=== PATIENT | male | born 1970 | race Caucasian/White ===

== ENCOUNTER → 2016-10-19 | Outpatient (CLI) | payer SELFPAY ==
[2016-10-19 14:42] LABS: Anisocytosis Slight; CH 27.6; CHCM 32.5; HCT 36.8 % (39.0-53.0); HDW 2.62; HGB 11.9 gm/dL (13.0-17.5); MCH 27.6 pg (25.0-35.0); MCHC 32.5 g/dL (31.0-37.0); MCV 85.1 fL (80.0-100.0); Mean Platelet Volume 8.6; RBC 4.32 m/uL (4.30-5.90); RDW 16.6 % (11.5-15.5); Reticulocyte % 2.1 % (0.5-2.0); WBC 8.6 k/uL (3.8-10.6)
== END | disposition home or self-care (01) ==
LOC: LABWHC1 14:27
PROVIDERS: ATTEND Internal Medicine
DX: R53.83 Other fatigue (principal); R52 Pain, unspecified
CPT/HCPCS: 36415; 84439; 85027; 85045

== ENCOUNTER → 2016-12-22 | Outpatient (CLI) | payer BC ==
[2016-12-22 15:06] LABS: Anisocytosis Slight; CH 30.8; CHCM 32.8; HCT 39.3 % (39.0-53.0); HDW 2.27; HGB 12.7 gm/dL (13.0-17.5); MCH 30.5 pg (25.0-35.0); MCHC 32.3 g/dL (31.0-37.0); Mean Platelet Volume 7.8; RBC 4.17 m/uL (4.30-5.90); RDW 17.1 % (11.5-15.5); WBC 8.2 k/uL (3.8-10.6)
[2016-12-22 15:07] LABS: MCV 94.3 fL (80.0-100.0)
[2016-12-23 04:38] LABS: HSV I IgG Interp POSITIVE (NEGATIVE)
[2016-12-23 13:08] LABS: IgG Subclass 3 39.2 mg/dL (11.0-85.0)
== END | disposition home or self-care (01) ==
LOC: LABWHC1 14:25
PROVIDERS: ATTEND Internal Medicine
DX: D84.9 Immunodeficiency, unspecified (principal); R53.83 Other fatigue; B25.8 Other cytomegaloviral diseases; B99.9 Unspecified infectious disease; B00.9 Herpesviral infection, unspecified
CPT/HCPCS: 36415; 82728; 82784; 82787; 85027; 86644; 86695; 86790

== ENCOUNTER 2017-04-19 17:43 | Emergency (ER) | payer BC ==
[2017-04-19] MEDS ORDERED: SODIUM CHLORIDE 0.9% 1,000 ML IV STA (19:21)
--- NOTE | 2017-04-19 19:30 | ED ---
General Adult HPI - General Chief complaint: Abdominal Pain Stated complaint: sent by [facility] for liver inflamation Time Seen by Provider: 04/19/17 19:02 Source: patient, RN notes reviewed, old records reviewed Mode of arrival: ambulatory Limitations: no limitations - History of Present Illness Initial comments: Chief complaint and history of present illness a 38-year-old male who is no alcoholic. Recently the patient is having discomfort right upper quadrant. States he was with a woman who was hepatitis C positive from IV drug abuse. This was several months ago. Patient was sent here from the urgent care clinic for further evaluation. The patient reports that he drank alcohol until yesterday. The patient is now admitted alcoholic. - Related Data Home Medications Medication Instructions Recorded Confirmed Gabapentin [Neurontin] 800 mg PO QID 10/22/14 04/19/17 Baclofen [Lioresal] 20 mg PO TID 04/19/17 04/19/17 Celecoxib [CeleBREX] 100 mg PO DAILY 04/19/17 04/19/17 Famciclovir [Famvir] 750 mg PO TID 04/19/17 04/19/17 Hydrocortisone 5 - 10 mg PO DAILY 04/19/17 04/19/17 Midodrine HCl [ProAmatine] 5 - 10 mg PO BID 04/19/17 04/19/17 Zolpidem Tartrate [Ambien] 10 mg PO HS 04/19/17 04/19/17 oxyCODONE-APAP 5-325MG [Percocet 1 tab PO TID PRN 04/19/17 04/19/17 5-325 mg] tiZANidine HCL [Zanaflex] 2 - 4 mg PO HS 04/19/17 04/19/17 traMADol HCL [Ultram] 50 - 100 mg PO QID PRN 04/19/17 04/19/17 Previous Rx's Medication Instructions Recorded chlordiazePOXIDE HCl [Librium] 25 mg PO QID #20 capsule 04/19/17 Allergies Allergy/AdvReac Type Severity Reaction Status Date / Time Penicillins Allergy Rash/Hives Verified 04/19/17 18:07 Review of Systems ROS Statement: Those systems with pertinent positive or pertinent negative responses have been documented in the HPI. Review of systems no headache or visual acuity changes no chest pain or shortness of breath. His abdominal discomfort nausea but no vomiting no diarrhea at this time. Complains or right upper quadrant pain. All systems reviewed. Past medical problems alcoholism. The patient was incarcerated and and that having a gastrectomy because of overuse of ibuprofen. Family history no cancers. Patient has ALLERGIES to penicillin. Continues to smoke strongly encouraged to stop alcohol patient's an alcoholic. He denies ever being throughway alcohol rehab program. Also history of MRSA. Surgeries include cholecystectomy and tonsillectomy. Psychological history history of bipolar disorder. Denies drugs elevated marijuana. Patient has his medications including Neurontin baclofen and tramadol prescribed by in [place]. He notified him as a specialist and chronic fatigue syndrome multiple lab tests done by the physician. 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 He states that he has never seen this physician. ROS Other: All systems not noted in ROS Statement are negative. Past Medical History Past Medical History: No Reported History Additional Past Medical History / Comment(s): alcoholism History of Any Multi-Drug Resistant Organisms: MRSA Date of last positivie culture/infection: 2007 MDRO Source:: abdomen Past Surgical History: Cholecystectomy, Tonsillectomy Additional Past Surgical History / Comment(s): abdominal sx Past Psychological History: Anxiety, Bipolar, Depression Smoking Status: Current every day smoker Past Alcohol Use History: Abuse Past Drug Use History: Marijuana General Exam - General Exam Comments Initial Comments: General: The patient is awake and alert, complains not feeling well his pressure discomfort to the right upper quadrant. Vital signs temperature 97.7, pulse 82 respiratory rate 18 pulse ox 90% room air blood pressure 151/98 Eye: Pupils are equal, round and reactive to light, extra-ocular movements are intact ; there is normal conjunctiva bilaterally. No signs of icterus. Ears, nose, mouth and throat: There are moist mucous membranes and no oral lesions. Neck: The neck is supple, there is no tenderness . Cardiovascular: There is a regular rate and rhythm. No murmur, rub or gallop is appreciated. Respiratory: Lungs are clear to auscultation, respirations are non-labored, breath sounds are equal. No wheezes, stridor, rales, or rhonchi. Gastrointestinal: Complains of abdominal discomfort no liver edge is palpable this time. Negative Barnard's. Patient has artery had a cholecystectomy. Patient is not alcoholic. Back: There is no tenderness to palpation in the midline. There is no obvious deformity. No rashes noted. Musculoskeletal: Normal ROM, no tenderness, There is no pedal edema. There is no calf tenderness or swelling. Sensation intact. . Neurological: No neuro deficits complained of are noted. Skin: Skin is warm and dry and no rashes or lesions are noted. Psychiatric: History of bipolar disorder. Denies depression or suicidal thoughts at this time. Limitations: no limitations Course Vital Signs 04/19/17 04/19/17 04/19/17 18:04 20:37 21:34 Temperature 97.7 F Pulse Rate 82 84 83 Respiratory 18 16 18 Rate Blood Pressure 151/98 154/89 155/79 O2 Sat by Pulse 98 97 99 Oximetry Medical Decision Making - Medical Decision Making Medical decision making; patient's white count is 9 hemoglobin 12 medical 34, BUN 9 creatinine 0.7 to the GFR greater than 60. Glucose 91. Plasma lactic acid within normal limits 1.4. Amylase lipase within normal limits EtOH is 0.013. The patient's potassium is 4.0 INR 1.0. Acute hepatitis panel is reported to be negative for hepatitis A, hepatitis B or hepatitis C. Patient will be offered Librium 25 mg 4 times a day for the next 5 days in order to assist in his stopping his alcohol use. Advised to consider alcohol rehab programs, a list will be given to him. Advised to have rechecks as needed by his family physician. - Lab Data Result diagrams: 04/19/17 19:42 04/19/17 19:42 Lab Results 04/19/17 04/19/17 04/19/17 Range/Units 19:42 19:42 19:42 WBC 9.1 (3.8-10.6) k/uL RBC 3.71 L (4.30-5.90) m/uL Hgb 12.1 L (13.0-17.5) gm/dL Hct 34.3 L (39.0-53.0) % MCV 92.4 (80.0-100.0) fL MCH 32.6 (25.0-35.0) pg MCHC 35.2 (31.0-37.0) g/dL RDW 13.8 (11.5-15.5) % Plt Count 302 (150-450) k/uL Neutrophils % 62 % Lymphocytes % 27 % Monocytes % 6 % Eosinophils % 4 % Basophils % 1 % Neutrophils # 5.6 (1.3-7.7) k/uL Lymphocytes # 2.5 (1.0-4.8) k/uL Monocytes # 0.5 (0-1.0) k/uL Eosinophils # 0.3 (0-0.7) k/uL Basophils # 0.1 (0-0.2) k/uL PT (9.0-12.0) sec INR (<1.1) APTT (22.0-30.0) sec Sodium 139 (137-145) mmol/L Potassium 4.0 (3.5-5.1) mmol/L Chloride 105 (98-107) mmol/L Carbon Dioxide 21 L (22-30) mmol/L Anion Gap 13 mmol/L BUN 9 (9-20) mg/dL Creatinine 0.72 (0.66-1.25) mg/dL Est GFR (MDRD) Af Amer >60 (>60 ml/min/1.73 sqM) Est GFR (MDRD) Non-Af >60 (>60 ml/min/1.73 sqM) Glucose 91 (74-99) mg/dL Plasma Lactic Acid Eric 1.4 (0.7-2.0) mmol/L Calcium 9.2 (8.4-10.2) mg/dL Total Bilirubin 0.3 (0.2-1.3) mg/dL AST 21 (17-59) U/L ALT 21 (21-72) U/L Alkaline Phosphatase 72 (38-126) U/L Total Protein 6.6 (6.3-8.2) g/dL Albumin 4.0 (3.5-5.0) g/dL Amylase <30 L (30-110) U/L Lipase 83 (23-300) U/L Urine Color Urine Appearance (Clear) Urine pH (5.0-8.0) Ur Specific [place] (1.001-1.035) Urine Protein (Negative) Urine Glucose (UA) (Negative) Urine Ketones (Negative) Urine Blood (Negative) Urine Nitrite (Negative) Urine Bilirubin (Negative) Urine Urobilinogen (<2.0) mg/dL Ur Leukocyte Esterase (Negative) Serum Alcohol 13 mg/dL Hepatitis A IgM Ab Hep Bs Antigen Hep B Core IgM Ab Hep C IgG Ab (Negative) 04/19/17 04/19/17 04/19/17 Range/Units 19:42 19:42 20:12 WBC (3.8-10.6) k/uL RBC (4.30-5.90) m/uL Hgb (13.0-17.5) gm/dL Hct (39.0-53.0) % MCV (80.0-100.0) fL MCH (25.0-35.0) pg MCHC (31.0-37.0) g/dL RDW (11.5-15.5) % Plt Count (150-450) k/uL Neutrophils % % Lymphocytes % % Monocytes % % Eosinophils % % Basophils % % Neutrophils # (1.3-7.7) k/uL Lymphocytes # (1.0-4.8) k/uL Monocytes # (0-1.0) k/uL Eosinophils # (0-0.7) k/uL Basophils # (0-0.2) k/uL PT 10.4 (9.0-12.0) sec INR 1.0 (<1.1) APTT 24.7 (22.0-30.0) sec Sodium (137-145) mmol/L Potassium (3.5-5.1) mmol/L Chloride (98-107) mmol/L Carbon Dioxide (22-30) mmol/L Anion Gap mmol/L BUN (9-20) mg/dL Creatinine (0.66-1.25) mg/dL Est GFR (MDRD) Af Amer (>60 ml/min/1.73 sqM) Est GFR (MDRD) Non-Af (>60 ml/min/1.73 sqM) Glucose (74-99) mg/dL Plasma Lactic Acid Eric (0.7-2.0) mmol/L Calcium (8.4-10.2) mg/dL Total Bilirubin (0.2-1.3) mg/dL AST (17-59) U/L ALT (21-72) U/L Alkaline Phosphatase (38-126) U/L Total Protein (6.3-8.2) g/dL Albumin (3.5-5.0) g/dL Amylase (30-110) U/L Lipase (23-300) U/L Urine Color Yellow Urine Appearance Clear (Clear) Urine pH 6.0 (5.0-8.0) Ur Specific [place] 1.011 (1.001-1.035) Urine Protein Negative (Negative) Urine Glucose (UA) Negative (Negative) Urine Ketones Negative (Negative) Urine Blood Negative (Negative) Urine Nitrite Negative (Negative) Urine Bilirubin Negative (Negative) Urine Urobilinogen <2.0 (<2.0) mg/dL Ur Leukocyte Esterase Negative (Negative) Serum Alcohol mg/dL Hepatitis A IgM Ab NEGATIVE Hep Bs Antigen Negative Hep B Core IgM Ab NEGATIVE Hep C IgG Ab Negative (Negative) Disposition Clinical Impression: Alcohol abuse Disposition: HOME SELF-CARE Condition: Fair Instructions: Mood Disorders (ED), Abuse of Alcohol (ED) Additional Instructions: Stop alcohol entirely. Use Librium 25 mg 4 times a day for the next 5 days. Contact family doctor and consider going to alcohol rehabilitation program. Prescriptions: chlordiazePOXIDE HCl [Librium] 25 mg PO QID #20 capsule Referrals: None,Stated [Primary Care Provider] - 1-2 days Time of Disposition: 21:43
[2017-04-19 19:54] LABS: Basophils # (A) 0.1 k/uL (0-0.2); Basophils % (A) 1 %; CH 31.1; CHCM 33.8; Eosinophils # (A) 0.3 k/uL (0-0.7); Eosinophils % (A) 4 %; HCT 34.3 % (39.0-53.0); HDW 2.48; HGB 12.1 gm/dL (13.0-17.5); Luc # (Auto) 0.13; Luc % (Auto) 1; Lymphocytes # (A) 2.5 k/uL (1.0-4.8); Lymphocytes % (A) 27 %; MCH 32.6 pg (25.0-35.0); MCHC 35.2 g/dL (31.0-37.0); MCV 92.4 fL (80.0-100.0); Monocytes # (A) 0.5 k/uL (0-1.0); Monocytes % (A) 6 %; Neutrophils # (A) 5.6 k/uL (1.3-7.7); Neutrophils % (A) 62 %; RBC 3.71 m/uL (4.30-5.90); RDW 13.8 % (11.5-15.5); WBC 9.1 k/uL (3.8-10.6); WBC (Perox) 8.41
[2017-04-19 20:05] LABS: ALT 21 U/L (21-72); AST 21 U/L (17-59); Alcohol 13 mg/dL; Alkaline Phosphatase 72 U/L (38-126); Amylase <30 U/L (30-110); Anion Gap 13 mmol/L; Blood Urea Nitrogen 9 mg/dL (9-20); Calcium 9.2 mg/dL (8.4-10.2); Carbon Dioxide 21 mmol/L (22-30); Chloride 105 mmol/L (98-107); Glucose 91 mg/dL (74-99); Non-African American GFR(MDRD) >60 (>60 ml/min/1.73 sqM); Partial Thromboplastin Time 24.7 sec (22.0-30.0); Prothrombin Time 10.4 sec (9.0-12.0); Sodium 139 mmol/L (137-145); Total Bilirubin 0.3 mg/dL (0.2-1.3); Total Protein 6.6 g/dL (6.3-8.2)
--- NOTE | 2017-04-19 20:08 | XR ---
EXAMINATION TYPE: XR abdomen 2V DATE OF EXAM: 04/19/2017 HISTORY: Pain. Technique: 2 views of the abdomen are submitted. Comparison: None. Findings: There is no convincing evidence of pneumoperitoneum. The Bowel gas pattern is nonspecific and nonobstructive. No sizable air-fluid levels are seen. No mass effects are noted. No renal calcifications are identified. IMPRESSION: 1. Nonspecific nonobstructive bowel gas pattern
[2017-04-19 20:21] LABS: Appearance,Urine Clear (Clear); Bilirubin,Urine Negative (Negative); Glucose,Urine (UA) Negative (Negative); Ketones,Urine Negative (Negative); Leukocyte Esterase,Urine Negative (Negative); Nitrite,Urine Negative (Negative); Protein,Urine Negative (Negative); Specific Gravity,Urine 1.011 (1.001-1.035); UA Billing (MACRO vs. MICRO) CHEM; Urobilinogen,Urine <2.0 mg/dL (<2.0)
[2017-04-19 21:18] LABS: Hepatitis B Surface Ag Index 0.05
[2017-04-19 21:24] LABS: Hepatitis B Core IgM Index 0.03
[2017-04-19 21:35] VITALS: BP 155/79; PULSE 83; RESP 18
[2017-04-19 21:35] LABS: Hepatitis C Virus IgG Ab Negative (Negative); Hepatitis C Virus IgG Index 0.03
[2017-04-19] MEDS ORDERED: chlordiazePOXIDE 25 MG CAP PO STA (21:42)
[2017-04-19 21:51] VITALS: TEMP 96.9
== END 2017-04-19 21:57 | disposition home or self-care (01) ==
LOC: EC 17:43
DX: F10.10 Alcohol abuse, uncomplicated (principal); R10.11 Right upper quadrant pain; F31.9 Bipolar disorder, unspecified; F41.9 Anxiety disorder, unspecified; F17.200 Nicotine dependence, unspecified, uncomplicated; Z79.899 Other long term (current) drug therapy; Z88.0 Allergy status to penicillin; Z90.49 Acquired absence of other specified parts of digestive tract
CPT/HCPCS: 36415; 74020; 80053; 80074; 80320; 81003; 82150; 83605; 83690; 85025; 85610; 85730; 96360; 96361; 99284

== ENCOUNTER → 2020-09-04 | Outpatient (CLI) | payer OTHER ==
[2020-09-04 09:29] LABS: Appearance,Urine Clear (Clear); Bilirubin,Urine Negative (Negative); Blood,Urine Negative (Negative); Color,Urine Yellow; Glucose,Urine (UA) Negative (Negative); Ketones,Urine Negative (Negative); Leukocyte Esterase,Urine Negative (Negative); Nitrite,Urine Negative (Negative); Protein,Urine Negative (Negative); Specific Gravity,Urine 1.014 (1.001-1.035); Urobilinogen,Urine <2.0 mg/dL (<2.0)
[2020-09-04 09:31] LABS: HCT 39.1 % (39.0-53.0); MCH 30.2 pg (25.0-35.0); MCHC 33.3 g/dL (31.0-37.0); MCV 90.7 fL (80.0-100.0); Mean Platelet Volume 7.1; Platelet Count 261 k/uL (150-450); RBC 4.32 m/uL (4.30-5.90); RDW 14.6 % (11.5-15.5); WBC 3.9 k/uL (3.8-10.6)
[2020-09-04 14:57] LABS: Erythrocyte Sedimentation Rate 27 mm/Hr (0-20)
[2020-09-04 15:36] LABS: Hemoglobin A1C 5.6 % (4.0-6.0)
[2020-09-04 17:10] LABS: ALT 21 U/L (10-49); AST 22 U/L (14-35); African American GFR (CKD) 119.9 (60.0-200.0); Alkaline Phosphatase 86 U/L (41-126); Calcium 9.8 mg/dL (8.7-10.3); Carbon Dioxide 24.9 mmol/L (21.6-31.8); Chloride 106 mmol/L (96-109); Globulin 2.3 g/dL (1.6-3.3); Glucose 126 mg/dL (70-110); Iron 90 ug/dL (65-175); Magnesium 2.2 mg/dL (1.5-2.4); Non-African American GFR(CKD) 103.4 (60.0-200.0); Sodium 141 mmol/L (135-145); Total Bilirubin 0.3 mg/dL (0.2-1.2); Total Iron Binding Capacity 318 ug/dL (228-460); Total Protein 6.9 g/dL (6.2-8.2)
[2020-09-04 17:14] LABS: DHEA Sulfate 186.2 ug/dL (34.5-568.9)
[2020-09-04 17:17] LABS: Follicle Stimulating Hormone 6.9 mIU/mL; Prolactin 8.2 ng/mL (2.1-17.7)
[2020-09-04 17:20] LABS: Insulin Level 18.6 mIU/mL (3.0-25.0)
[2020-09-04 17:21] LABS: Prostate Specific Antigen 1.2 ng/mL (0.0-3.5)
[2020-09-04 17:37] LABS: Luteinizing Hormone <0.1 mIU/mL
[2020-09-05 11:29] LABS: IgG Subclass 3 37.6 mg/dL (11.0-85.0)
== END | disposition home or self-care (01) ==
LOC: LABWHC1 08:39
PROVIDERS: ATTEND Internal Medicine
DX: D89.9 Disorder involving the immune mechanism, unspecified (principal); B99.9 Unspecified infectious disease; R53.83 Other fatigue; R52 Pain, unspecified
CPT/HCPCS: 36415; 80053; 81003; 82024; 82306; 82533; 82607; 82627; 82728; 82784; 82785; 82787; 83001; 83002; 83036; 83525; 83540; 83550; 83735; 84140; 84146; 84153; 84402; 84403; 84439; 84443; 84481; 84482; 85027; 85652; 86376; 86644; 86645; 86694; 86695; 86696

== ENCOUNTER → 2020-11-03 | Outpatient (CLI) | payer BC ==
[2020-11-03 13:14] LABS: Basophils # (A) 0.1 k/uL (0-0.2); Basophils % (A) 1 %; Eosinophils # (A) 0.5 k/uL (0-0.7); Eosinophils % (A) 8 %; HCT 36.8 % (39.0-53.0); HGB 12.4 gm/dL (13.0-17.5); Lymphocytes # (A) 0.5 k/uL (1.0-4.8); Lymphocytes % (A) 8 %; MCH 31.6 pg (25.0-35.0); MCHC 33.9 g/dL (31.0-37.0); MCV 93.3 fL (80.0-100.0); Mean Platelet Volume 7.2; Monocytes # (A) 0.3 k/uL (0-1.0); Monocytes % (A) 5 %; Neutrophils # (A) 5.2 k/uL (1.3-7.7); Neutrophils % (A) 78 %; Platelet Count 245 k/uL (150-450); RBC 3.94 m/uL (4.30-5.90); RDW 13.8 % (11.5-15.5); WBC 6.6 k/uL (3.8-10.6)
[2020-11-03 21:31] LABS: African American GFR (CKD) 99.8 (60.0-200.0); Albumin 4.9 g/dL (3.80-4.90); Albumin/Globulin Ratio 2.45 (1.60-3.17); Calcium 9.8 mg/dL (8.7-10.3); Non-African American GFR(CKD) 86.2 (60.0-200.0); Potassium 4.6 mmol/L (3.5-5.5); Total Bilirubin 0.2 mg/dL (0.2-1.2); Total Protein 6.9 g/dL (6.2-8.2)
[2020-11-03 21:38] LABS: Prostate Specific Antigen 0.4 ng/mL (0.0-3.5)
== END | disposition home or self-care (01) ==
LOC: LABWHC1 12:41
PROVIDERS: ATTEND Internal Medicine Hematology & Oncology
DX: M79.7 Fibromyalgia (principal); C61 Malignant neoplasm of prostate
CPT/HCPCS: 36415; 80053; 84153; 85025

== ENCOUNTER → 2020-12-23 | Outpatient (CLI) | payer BC ==
--- NOTE | 2020-12-23 15:57 | NM ---
EXAMINATION TYPE: NM bone scan whole body DATE OF EXAM: 12/23/2020 COMPARISON: NONE HISTORY: Prostate cancer Delayed whole-body scanning was performed following the injection of 23.0 mCi Tc 99m MDP. Images acq uired 3 hours post injection. FINDINGS: Abnormal uptake involving the maxilla may been the basis of sinusitis. Dental disease. Nonspecific up take involving the cervical thoracic junction. Nonspecific uptake involving the lumbosacral junction on the right. Abnormal uptake involving the shoulders likely post arthritic. Remaining osseous structures demonstra te no increased or reduced abnormal uptake. IMPRESSION: 1. Nonspecific uptake involving the cervical thoracic junction and L5-S1 on the right could be post a rthritic. Recommend x-ray correlation to exclude other etiologies
== END ==
LOC: RADNMMAIN 11:15
PROVIDERS: ATTEND Internal Medicine
DX: C61 Malignant neoplasm of prostate (principal)
CPT/HCPCS: 78306; A9503

== ENCOUNTER 2021-03-09 01:10 | Inpatient (IN) | payer BC ==
--- NOTE | 2021-03-09 01:47 | ED ---
Altered Mental Status HPI - General Chief Complaint: Altered Mental Status Stated Complaint: Lethargic Time Seen by Provider: 03/09/21 01:17 Source: patient, EMS, RN notes reviewed, old records reviewed Mode of arrival: EMS Limitations: altered mental status, physical limitation - History of Present Illness Initial Comments: This is a 48-year-old male DF for evaluation patient brought in for unresponsiveness. Per EMS during transfer patient refuses evaluation. Patient was found outside of road not acting appropriately difficulty walking. Patient did have responsiveness EMS questioning and refuse transport EMS did not feel comfortable leaving patient aside the road as he couldn't even crop picker his cigarettes from the ground. Patient comes in the ER still refusing transport but throughout conversation questioning he becomes decreased in his r esponsiveness at this point patient become a poor story MD Complaint: altered mental status, decreased responsiveness, weakness -: days(s) Severity: mild Consistency of Symptoms: getting worse Context: drug abuse, history of similar presentation Associated Symptoms: nausea/vomiting, weakness Treatments Prior to Arrival: glucose - Related Data Home Medications Medication Instructions Recorded Confirmed Gabapentin [Neurontin] 800 mg PO TID 10/22/14 03/09/21 Baclofen [Lioresal] 10 - 20 mg PO QID PRN 04/19/17 03/09/21 Famciclovir [Famvir] 750 mg PO TID 04/19/17 03/09/21 Midodrine HCl [ProAmatine] 5 - 10 mg PO BID@0800,1200 04/19/17 03/09/21 Zolpidem Tartrate [Ambien] 10 mg PO HS 04/19/17 03/09/21 Buprenorphine HCl/Naloxone HCl 0.5 film SL BID 03/09/21 03/09/21 [Suboxone 8 mg-2 mg Sl Film] Enalapril Maleate 20 mg PO DAILY 03/09/21 03/09/21 Ferrous Sulfate [Iron (65 MG 325 mg PO DAILY 03/09/21 03/09/21 Elemental)] buPROPion SR [Wellbutrin SR] 150 mg PO DAILY 03/09/21 03/09/21 fluvoxaMINE MALEATE [Fluvoxamine 100 mg PO BID 03/09/21 03/09/21 Maleate] traMADol HCl [Ultram] 100 mg PO TID 03/09/21 03/09/21 traZODone HCL 50 - 100 mg PO HS 03/09/21 03/09/21 Previous Rx's Medication Instructions Recorded Clindamycin [Cleocin] 150 mg PO Q6H #12 cap 03/12/21 Thiamine [Vitamin B-1] 100 mg PO BID-W/MEALS #20 tab 03/12/21 hydrALAZINE HCL [Apresoline] 25 mg PO BID #60 tab 03/12/21 Allergies Allergy/AdvReac Type Severity Reaction Status Date / Time Penicillins Allergy Rash/Hives Verified 04/19/17 18:07 Review of Systems ROS Statement: Those systems with pertinent positive or pertinent negative responses have been documented in the HPI. ROS Other: All systems not noted in ROS Statement are negative. Past Medical History Past Medical History: No Reported History Additional Past Medical History / Comment(s): alcoholism History of Any Multi-Drug Resistant Organisms: MRSA Date of last positivie culture/infection: 2007 MDRO Source:: abdomen Past Surgical History: Cholecystectomy, Tonsillectomy Additional Past Surgical History / Comment(s): abdominal sx Past Psychological History: Anxiety, Bipolar, Depression Smoking Status: Unknown if ever smoked Past Alcohol Use History: Abuse Past Drug Use History: Marijuana General Exam Limitations: altered mental status, physical limitation General appearance: anxious, obtunded, in distress Head exam: Present: atraumatic, normocephalic, normal inspection Eye exam: Absent: EOMI (Pupils are pinpoint roving), scleral icterus, conjunctival injection, periorbital swelling ENT exam: Present: normal exam, mucous membranes moist Neck exam: Present: normal inspection. Absent: tenderness, meningismus, lymp hadenopathy Respiratory exam: Present: respiratory distress, accessory muscle use, decreased breath sounds, prolonged expiratory. Absent: wheezes, rales, rhonchi, stridor Cardiovascular Exam: Present: regular rate, normal rhythm, normal heart sounds. Absent: systolic murmur, diastolic murmur, rubs, gallop, clicks GI/Abdominal exam: Present: soft, normal bowel sounds. Absent: distended, tenderness, guarding, rebound, rigid Extremities exam: Present: normal inspection, full ROM, normal capillary refill. Absent: tenderness, pedal edema, joint swelling, calf tenderness Back exam: Present: normal inspection Psychiatric exam: Present: normal affect, normal mood Skin exam: Present: warm, dry, intact, normal color. Absent: rash Course Vital Signs 03/09/21 03/09/21 03/09/21 01:16 02:27 02:30 Temperature 98 F Pulse Rate 93 Respiratory 16 12 12 Rate Blood Pressure 76/47 O2 Sat by Pulse 95 Oximetry 03/09/21 03/09/21 03/09/21 02:39 02:45 03:00 Temperature Pulse Rate 95 91 66 Respiratory 20 Rate Blood Pressure 89/58 98/60 164/96 O2 Sat by Pulse 99 100 100 Oximetry 03/09/21 03/09/21 03/09/21 03:25 03:30 04:00 Temperature Pulse Rate 96 90 73 Respiratory 16 17 20 Rate Blood Pressure 139/85 139/85 143/81 O2 Sat by Pulse 100 100 100 Oximetry 03/09/21 03/09/21 03/09/21 04:30 04:45 05:00 Temperature Pulse Rate 70 67 65 Respiratory 20 16 20 Rate Blood Pressure 115/68 85/51 85/51 O2 Sat by Pulse 100 100 100 Oximetry 03/09/21 03/09/21 06:00 07:00 Temperature Pulse Rate 68 65 Respiratory 20 16 Rate Blood Pressure 105/64 113/61 O2 Sat by Pulse 100 100 Oximetry - Reevaluation(s) Reevaluation #1: 03/09/21 06:24 Medical record is reviewed Does have history of psychiatric illness and alcoholism Reevaluation #2: 03/09/21 06:24 Spoke with EMS who did run a patient earlier this week. She is accompanied to hospital friends that he was unresponsive. Patient did appear to have a lot of vitamins medications on his table Reevaluation #3: 03/09/21 06:25 Patient needed to be intubated secondary to inability to protect airway and episodes of hypoxia, apnea 03/09/21 06:26 Marginal blood pressure responsive to fluids Reevaluation #4: 03/09/21 06:28 Upon initial evaluation patient did not respond to either blood sugar supplementation or Narcan - Consultations Consultation #1: Spoke with ICU, Dr. Zazueta agrees to admit the patient to the ICU Consultation #2: spoke w Dr. Sierra who agrees to admit patient Medical Decision Making - Medical Decision Making 48 female DF for evaluation patient has significant altered mental status. Patient admitted for protection and hypoxia. At this point patient will be admitted to further evaluation management of possible toxic metabolic encephalopathy unsure of overdose - Lab Data Result diagrams: 03/12/21 03:44 03/12/21 03:44 Lab Results 03/09/21 03/09/21 03/09/21 Range/Units 02:02 02:02 02:02 WBC 13.8 H (3.8-10.6) k/uL RBC 3.44 L (4.30-5.90) m/uL Hgb 10.6 L (13.0-17.5) gm/dL Hct 30.8 L (39.0-53.0) % MCV 89.6 (80.0-100.0) fL MCH 30.9 (25.0-35.0) pg MCHC 34.5 (31.0-37.0) g/dL RDW 13.9 (11.5-15.5) % Plt Count 196 (150-450) k/uL MPV 7.6 Neutrophils % 93 % Lymphocytes % 3 % Monocytes % 3 % Eosinophils % 1 % Basophils % 0 % Neutrophils # 12.8 H (1.3-7.7) k/uL Lymphocytes # 0.5 L (1.0-4.8) k/uL Monocytes # 0.4 (0-1.0) k/uL Eosinophils # 0.1 (0-0.7) k/uL Basophils # 0.0 (0-0.2) k/uL PT 10.8 (9.0-12.0) sec INR 1.0 (<1.2) APTT 26.5 (22.0-30.0) sec Sample Site ABG pH (7.35-7.45) ABG pCO2 (35-45) mmHg ABG pO2 (83-108) mmHg ABG HCO3 (21-25) mmol/L ABG Total CO2 (19-24) mmol/L ABG O2 Saturation (94-97) % ABG Base Excess mmol/L Jatinder Test FiO2 % Sodium 134 L (137-145) mmol/L Potassium 4.0 (3.5-5.1) mmol/L Chloride 101 (98-107) mmol/L Carbon Dioxide 19 L (22-30) mmol/L Anion Gap 14 mmol/L BUN 27 H (9-20) mg/dL Creatinine 2.74 H (0.66-1.25) mg/dL Est GFR (CKD-EPI)AfAm 29 (>60 ml/min/1.73 sqM) Est GFR (CKD-EPI)NonAf 26 (>60 ml/min/1.73 sqM) Glucose 100 H (74-99) mg/dL POC Glucose (mg/dL) (75-99) mg/dL POC Glu Urology Teacher ID Plasma Lactic Acid Eric (0.7-2.0) mmol/L Calcium 9.8 (8.4-10.2) mg/dL Phosphorus 4.5 (2.5-4.5) mg/dL Magnesium 2.1 (1.6-2.3) mg/dL Total Bilirubin 0.3 (0.2-1.3) mg/dL AST 48 (17-59) U/L ALT 20 (4-49) U/L Alkaline Phosphatase 84 (38-126) U/L Ammonia (<30) umol/L Creatine Kinase 745 H (55-170) U/L Troponin I (0.000-0.034) ng/mL NT-Pro-B Natriuret Pep pg/mL Total Protein 6.8 (6.3-8.2) g/dL Albumin 4.3 (3.5-5.0) g/dL TSH 1.120 (0.465-4.680) mIU/L Cortisol ug/dL Urine Color Urine Appearance (Clear) Urine pH (5.0-8.0) Ur Specific Melba (1.001-1.035) Urine Protein (Negative) Urine Glucose (UA) (Negative) Urine Ketones (Negative) Urine Blood (Negative) Urine Nitrite (Negative) Urine Bilirubin (Negative) Urine Urobilinogen (<2.0) mg/dL Ur Leukocyte Esterase (Negative) Urine RBC (0-5) /hpf Urine WBC (0-5) /hpf Ur Squamous Epith Cells (0-4) /hpf Urine Bacteria (None) /hpf Hyaline Casts (0-2) /lpf Urine Mucus (None) /hpf Salicylates mg/dL Urine Opiates Screen (NotDetected) Ur Oxycodone Screen (NotDetected) Urine Methadone Screen (NotDetected) Ur Propoxyphene Screen (NotDetected) Acetaminophen ug/mL Ur Barbiturates Screen (NotDetected) U Tricyclic Antidepress (NotDetected) Ur Phencyclidine Scrn (NotDetected) Ur Amphetamines Screen (NotDetected) U Methamphetamines Scrn (NotDetected) U Benzodiazepines Scrn (NotDetected) Urine Cocaine Screen (NotDetected) U Marijuana (THC) Screen (NotDetected) Serum Alcohol <10 mg/dL Coronavirus (PCR) (Not Detectd) 03/09/21 03/09/21 03/09/21 Range/Units 02:02 02:02 02:02 WBC (3.8-10.6) k/uL RBC (4.30-5.90) m/uL Hgb (13.0-17.5) gm/dL Hct (39.0-53.0) % MCV (80.0-100.0) fL MCH (25.0-35.0) pg MCHC (31.0-37.0) g/dL RDW (11.5-15.5) % Plt Count (150-450) k/uL MPV Neutrophils % % Lymphocytes % % Monocytes % % Eosinophils % % Basophils % % Neutrophils # (1.3-7.7) k/uL Lymphocytes # (1.0-4.8) k/uL Monocytes # (0-1.0) k/uL Eosinophils # (0-0.7) k/uL Basophils # (0-0.2) k/uL PT (9.0-12.0) sec INR (<1.2) APTT (22.0-30.0) sec Sample Site ABG pH (7.35-7.45) ABG pCO2 (35-45) mmHg ABG pO2 (83-108) mmHg ABG HCO3 (21-25) mmol/L ABG Total CO2 (19-24) mmol/L ABG O2 Saturation (94-97) % ABG Base Excess mmol/L Jatinder Test FiO2 % Sodium (137-145) mmol/L Potassium (3.5-5.1) mmol/L Chloride (98-107) mmol/L Carbon Dioxide (22-30) mmol/L Anion Gap mmol/L BUN (9-20) mg/dL Creatinine (0.66-1.25) mg/dL Est GFR (CKD-EPI)AfAm (>60 ml/min/1.73 sqM) Est GFR (CKD-EPI)NonAf (>60 ml/min/1.73 sqM) Glucose (74-99) mg/dL POC Glucose (mg/dL) (75-99) mg/dL POC Glu Urology Teacher ID Plasma Lactic Acid Eric 1.2 (0.7-2.0) mmol/L Calcium (8.4-10.2) mg/dL Phosphorus (2.5-4.5) mg/dL Magnesium (1.6-2.3) mg/dL Total Bilirubin (0.2-1.3) mg/dL AST (17-59) U/L ALT (4-49) U/L Alkaline Phosphatase (38-126) U/L Ammonia (<30) umol/L Creatine Kinase (55-170) U/L Troponin I 0.015 (0.000-0.034) ng/mL NT-Pro-B Natriuret Pep 62 pg/mL Total Protein (6.3-8.2) g/dL Albumin (3.5-5.0) g/dL TSH (0.465-4.680) mIU/L Cortisol ug/dL Urine Color Urine Appearance (Clear) Urine pH (5.0-8.0) Ur Specific Melba (1.001-1.035) Urine Protein (Negative) Urine Glucose (UA) (Negative) Urine Ketones (Negative) Urine Blood (Negative) Urine Nitrite (Negative) Urine Bilirubin (Negative) Urine Urobilinogen (<2.0) mg/dL Ur Leukocyte Esterase (Negative) Urine RBC (0-5) /hpf Urine WBC (0-5) /hpf Ur Squamous Epith Cells (0-4) /hpf Urine Bacteria (None) /hpf Hyaline Casts (0-2) /lpf Urine Mucus (None) /hpf Salicylates mg/dL Urine Opiates Screen (NotDetected) Ur Oxycodone Screen (NotDetected) Urine Methadone Screen (NotDetected) Ur Propoxyphene Screen (NotDetected) Acetaminophen ug/mL Ur Barbiturates Screen (NotDetected) U Tricyclic Antidepress (NotDetected) Ur Phencyclidine Scrn (NotDetected) Ur Amphetamines Screen (NotDetected) U Methamphetamines Scrn (NotDetected) U Benzodiazepines Scrn (NotDetected) Urine Cocaine Screen (NotDetected) U Marijuana (THC) Screen (NotDetected) Serum Alcohol mg/dL Coronavirus (PCR) (Not Detectd) 03/09/21 03/09/21 03/09/21 Range/Units 02:02 02:32 03:42 WBC (3.8-10.6) k/uL RBC (4.30-5.90) m/uL Hgb (13.0-17.5) gm/dL Hct (39.0-53.0) % MCV (80.0-100.0) fL MCH (25.0-35.0) pg MCHC (31.0-37.0) g/dL RDW (11.5-15.5) % Plt Count (150-450) k/uL MPV Neutrophils % % Lymphocytes % % Monocytes % % Eosinophils % % Basophils % % Neutrophils # (1.3-7.7) k/uL Lymphocytes # (1.0-4.8) k/uL Monocytes # (0-1.0) k/uL Eosinophils # (0-0.7) k/uL Basophils # (0-0.2) k/uL PT (9.0-12.0) sec INR (<1.2) APTT (22.0-30.0) sec Sample Site rrad ABG pH 7.30 L (7.35-7.45) ABG pCO2 43 (35-45) mmHg ABG pO2 >400 H (83-108) mmHg ABG HCO3 21 (21-25) mmol/L ABG Total CO2 23 (19-24) mmol/L ABG O2 Saturation 99.7 H (94-97) % ABG Base Excess -5.2 mmol/L Jatinder Test Yes FiO2 100 % Sodium (137-145) mmol/L Potassium (3.5-5.1) mmol/L Chloride (98-107) mmol/L Carbon Dioxide (22-30) mmol/L Anion Gap mmol/L BUN (9-20) mg/dL Creatinine (0.66-1.25) mg/dL Est GFR (CKD-EPI)AfAm (>60 ml/min/1.73 sqM) Est GFR (CKD-EPI)NonAf (>60 ml/min/1.73 sqM) Glucose (74-99) mg/dL POC Glucose (mg/dL) 198 H (75-99) mg/dL POC Glu Urology Teacher ID Marcy Harris Plasma Lactic Acid Eric (0.7-2.0) mmol/L Calcium (8.4-10.2) mg/dL Phosphorus (2.5-4.5) mg/dL Magnesium (1.6-2.3) mg/dL Total Bilirubin (0.2-1.3) mg/dL AST (17-59) U/L ALT (4-49) U/L Alkaline Phosphatase (38-126) U/L Ammonia (<30) umol/L Creatine Kinase (55-170) U/L Troponin I (0.000-0.034) ng/mL NT-Pro-B Natriuret Pep pg/mL Total Protein (6.3-8.2) g/dL Albumin (3.5-5.0) g/dL TSH (0.465-4.680) mIU/L Cortisol 30 ug/dL Urine Color Urine Appearance (Clear) Urine pH (5.0-8.0) Ur Specific Melba (1.001-1.035) Urine Protein (Negative) Urine Glucose (UA) (Negative) Urine Ketones (Negative) Urine Blood (Negative) Urine Nitrite (Negative) Urine Bilirubin (Negative) Urine Urobilinogen (<2.0) mg/dL Ur Leukocyte Esterase (Negative) Urine RBC (0-5) /hpf Urine WBC (0-5) /hpf Ur Squamous Epith Cells (0-4) /hpf Urine Bacteria (None) /hpf Hyaline Casts (0-2) /lpf Urine Mucus (None) /hpf Salicylates mg/dL Urine Opiates Screen (NotDetected) Ur Oxycodone Screen (NotDetected) Urine Methadone Screen (NotDetected) Ur Propoxyphene Screen (NotDetected) Acetaminophen ug/mL Ur Barbiturates Screen (NotDetected) U Tricyclic Antidepress (NotDetected) Ur Phencyclidine Scrn (NotDetected) Ur Amphetamines Screen (NotDetected) U Methamphetamines Scrn (NotDetected) U Benzodiazepines Scrn (NotDetected) Urine Cocaine Screen (NotDetected) U Marijuana (THC) Screen (NotDetected) Serum Alcohol mg/dL Coronavirus (PCR) (Not Detectd) 03/09/21 03/09/21 03/09/21 Range/Units 03:47 03:47 03:49 WBC (3.8-10.6) k/uL RBC (4.30-5.90) m/uL Hgb (13.0-17.5) gm/dL Hct (39.0-53.0) % MCV (80.0-100.0) fL MCH (25.0-35.0) pg MCHC (31.0-37.0) g/dL RDW (11.5-15.5) % Plt Count (150-450) k/uL MPV Neutrophils % % Lymphocytes % % Monocytes % % Eosinophils % % Basophils % % Neutrophils # (1.3-7.7) k/uL Lymphocytes # (1.0-4.8) k/uL Monocytes # (0-1.0) k/uL Eosinophils # (0-0.7) k/uL Basophils # (0-0.2) k/uL PT (9.0-12.0) sec INR (<1.2) APTT (22.0-30.0) sec Sample Site ABG pH (7.35-7.45) ABG pCO2 (35-45) mmHg ABG pO2 (83-108) mmHg ABG HCO3 (21-25) mmol/L ABG Total CO2 (19-24) mmol/L ABG O2 Saturation (94-97) % ABG Base Excess mmol/L Jatinder Test FiO2 % Sodium (137-145) mmol/L Potassium (3.5-5.1) mmol/L Chloride (98-107) mmol/L Carbon Dioxide (22-30) mmol/L Anion Gap mmol/L BUN (9-20) mg/dL Creatinine (0.66-1.25) mg/dL Est GFR (CKD-EPI)AfAm (>60 ml/min/1.73 sqM) Est GFR (CKD-EPI)NonAf (>60 ml/min/1.73 sqM) Glucose (74-99) mg/dL POC Glucose (mg/dL) (75-99) mg/dL POC Glu Urology Teacher ID Plasma Lactic Acid Eric (0.7-2.0) mmol/L Calcium (8.4-10.2) mg/dL Phosphorus (2.5-4.5) mg/dL Magnesium (1.6-2.3) mg/dL Total Bilirubin (0.2-1.3) mg/dL AST (17-59) U/L ALT (4-49) U/L Alkaline Phosphatase (38-126) U/L Ammonia (<30) umol/L Creatine Kinase (55-170) U/L Troponin I (0.000-0.034) ng/mL NT-Pro-B Natriuret Pep pg/mL Total Protein (6.3-8.2) g/dL Albumin (3.5-5.0) g/dL TSH (0.465-4.680) mIU/L Cortisol ug/dL Urine Color Yellow Urine Appearance Cloudy (Clear) Urine pH 5.5 (5.0-8.0) Ur Specific Melba 1.021 (1.001-1.035) Urine Protein 1+ H (Negative) Urine Glucose (UA) Negative (Negative) Urine Ketones Trace H (Negative) Urine Blood Negative (Negative) Urine Nitrite Negative (Negative) Urine Bilirubin Negative (Negative) Urine Urobilinogen <2.0 (<2.0) mg/dL Ur Leukocyte Esterase Small H (Negative) Urine RBC 1 (0-5) /hpf Urine WBC 8 H (0-5) /hpf Ur Squamous Epith Cells 2 (0-4) /hpf Urine Bacteria Rare H (None) /hpf Hyaline Casts 225 H (0-2) /lpf Urine Mucus Few H (None) /hpf Salicylates <1.0 mg/dL Urine Opiates Screen Not Detected (NotDetected) Ur Oxycodone Screen Not Detected (NotDetected) Urine Methadone Screen Not Detected (NotDetected) Ur Propoxyphene Screen Not Detected (NotDetected) Acetaminophen <10.0 ug/mL Ur Barbiturates Screen Not Detected (NotDetected) U Tricyclic Antidepress Not Detected (NotDetected) Ur Phencyclidine Scrn Not Detected (NotDetected) Ur Amphetamines Screen Not Detected (NotDetected) U Methamphetamines Scrn Not Detected (NotDetected) U Benzodiazepines Scrn Not Detected (NotDetected) Urine Cocaine Screen Not Detected (NotDetected) U Marijuana (THC) Screen Not Detected (NotDetected) Serum Alcohol mg/dL Coronavirus (PCR) (Not Detectd) 03/09/21 03/09/21 Range/Units 03:49 03:49 WBC (3.8-10.6) k/uL RBC (4.30-5.90) m/uL Hgb (13.0-17.5) gm/dL Hct (39.0-53.0) % MCV (80.0-100.0) fL MCH (25.0-35.0) pg MCHC (31.0-37.0) g/dL RDW (11.5-15.5) % Plt Count (150-450) k/uL MPV Neutrophils % % Lymphocytes % % Monocytes % % Eosinophils % % Basophils % % Neutrophils # (1.3-7.7) k/uL Lymphocytes # (1.0-4.8) k/uL Monocytes # (0-1.0) k/uL Eosinophils # (0-0.7) k/uL Basophils # (0-0.2) k/uL PT (9.0-12.0) sec INR (<1.2) APTT (22.0-30.0) sec Sample Site ABG pH (7.35-7.45) ABG pCO2 (35-45) mmHg ABG pO2 (83-108) mmHg ABG HCO3 (21-25) mmol/L ABG Total CO2 (19-24) mmol/L ABG O2 Saturation (94-97) % ABG Base Excess mmol/L Jatinder Test FiO2 % Sodium (137-145) mmol/L Potassium (3.5-5.1) mmol/L Chloride (98-107) mmol/L Carbon Dioxide (22-30) mmol/L Anion Gap mmol/L BUN (9-20) mg/dL Creatinine (0.66-1.25) mg/dL Est GFR (CKD-EPI)AfAm (>60 ml/min/1.73 sqM) Est GFR (CKD-EPI)NonAf (>60 ml/min/1.73 sqM) Glucose (74-99) mg/dL POC Glucose (mg/dL) (75-99) mg/dL POC Glu Urology Teacher ID Plasma Lactic Acid Eric (0.7-2.0) mmol/L Calcium (8.4-10.2) mg/dL Phosphorus (2.5-4.5) mg/dL Magnesium (1.6-2.3) mg/dL Total Bilirubin (0.2-1.3) mg/dL AST (17-59) U/L ALT (4-49) U/L Alkaline Phosphatase (38-126) U/L Ammonia <9 (<30) umol/L Creatine Kinase (55-170) U/L Troponin I (0.000-0.034) ng/mL NT-Pro-B Natriuret Pep pg/mL Total Protein (6.3-8.2) g/dL Albumin (3.5-5.0) g/dL TSH (0.465-4.680) mIU/L Cortisol ug/dL Urine Color Urine Appearance (Clear) Urine pH (5.0-8.0) Ur Specific Melba (1.001-1.035) Urine Protein (Negative) Urine Glucose (UA) (Negative) Urine Ketones (Negative) Urine Blood (Negative) Urine Nitrite (Negative) Urine Bilirubin (Negative) Urine Urobilinogen (<2.0) mg/dL Ur Leukocyte Esterase (Negative) Urine RBC (0-5) /hpf Urine WBC (0-5) /hpf Ur Squamous Epith Cells (0-4) /hpf Urine Bacteria (None) /hpf Hyaline Casts (0-2) /lpf Urine Mucus (None) /hpf Salicylates mg/dL Urine Opiates Screen (NotDetected) Ur Oxycodone Screen (NotDetected) Urine Methadone Screen (NotDetected) Ur Propoxyphene Screen (NotDetected) Acetaminophen ug/mL Ur Barbiturates Screen (NotDetected) U Tricyclic Antidepress (NotDetected) Ur Phencyclidine Scrn (NotDetected) Ur Amphetamines Screen (NotDetected) U Methamphetamines Scrn (NotDetected) U Benzodiazepines Scrn (NotDetected) Urine Cocaine Screen (NotDetected) U Marijuana (THC) Screen (NotDetected) Serum Alcohol mg/dL Coronavirus (PCR) Not Detected (Not Detectd) - EKG Data -: EKG Interpreted by Me (EKG is sinus rhythm 71, CT 160 QRS 110 QTc 50 to) - Radiology Data Radiology results: report reviewed (CT brain and chest x-ray are negative for significant acute disease positive for ET tube placement), image reviewed Critical Care Time Critical Care Time: Yes Total Critical Care Time: 65 Disposition Clinical Impression: Altered mental status, Delirium due to general medical condition, Hypoxia, Respiratory failure, Drug overdose, ARF (acute renal failure) Disposition: ADMITTED IP TO THIS [facility] Condition: Critical Is patient prescribed a controlled substance at d/c from ED?: No
[2021-03-09] MEDS ORDERED: SODIUM CHLORIDE 0.9% 1,000 ML IV STA ×3 (01:58→02:05)
[2021-03-09] MEDS ORDERED: NALOXONE 0.4 MG/ML 1 ML VIAL IVP STA ×2 (02:05→02:29)
[2021-03-09 02:26] LABS: ALT 20 U/L (4-49); AST 48 U/L (17-59); African American GFR (CKD) 29 (>60 ml/min/1.73 sqM); Albumin 4.3 g/dL (3.5-5.0); Alcohol <10 mg/dL; Alkaline Phosphatase 84 U/L (38-126); Anion Gap 14 mmol/L; Blood Urea Nitrogen 27 mg/dL (9-20); Calcium 9.8 mg/dL (8.4-10.2); Carbon Dioxide 19 mmol/L (22-30); Chloride 101 mmol/L (98-107); Creatine Kinase 745 U/L (55-170); Glucose 100 mg/dL (74-99); Magnesium 2.1 mg/dL (1.6-2.3); Non-African American GFR(CKD) 26 (>60 ml/min/1.73 sqM); Phosphorus 4.5 mg/dL (2.5-4.5); Sodium 134 mmol/L (137-145); Total Bilirubin 0.3 mg/dL (0.2-1.3); Total Protein 6.8 g/dL (6.3-8.2)
[2021-03-09] MEDS ORDERED: MIDAZOLAM 1 MG/ML 5 ML VIAL IV STA ×3 (02:27→02:54)
[2021-03-09] MEDS ORDERED: DEXTROSE 50% SYRINGE 50 ML IVP STA (02:28)
[2021-03-09 02:30] LABS: Basophils % (A) 0 %; Eosinophils # (A) 0.1 k/uL (0-0.7); Eosinophils % (A) 1 %; HCT 30.8 % (39.0-53.0); HGB 10.6 gm/dL (13.0-17.5); Lymphocytes # (A) 0.5 k/uL (1.0-4.8); Lymphocytes % (A) 3 %; MCH 30.9 pg (25.0-35.0); MCHC 34.5 g/dL (31.0-37.0); MCV 89.6 fL (80.0-100.0); Mean Platelet Volume 7.6; Monocytes # (A) 0.4 k/uL (0-1.0); Monocytes % (A) 3 %; Neutrophils # (A) 12.8 k/uL (1.3-7.7); Neutrophils % (A) 93 %; Platelet Count 196 k/uL (150-450); RBC 3.44 m/uL (4.30-5.90); RDW 13.9 % (11.5-15.5); WBC 13.8 k/uL (3.8-10.6)
[2021-03-09 02:35] LABS: Partial Thromboplastin Time 26.5 sec (22.0-30.0); Prothrombin Time 10.8 sec (9.0-12.0)
[2021-03-09 02:43] LABS: Glucose,Whole Blood 198 mg/dL (75-99)
[2021-03-09] MEDS ORDERED: SUCCINYLCHOLINE CHLORIDE VIAL 200 MG/10 ML VIAL IV STA (02:46)
[2021-03-09] MEDS ORDERED: SODIUM CHLORIDE 0.9% 2,000 ML IV STA (02:54)
[2021-03-09] MEDS ORDERED: MIDAZOLAM HCL 50 MG in SODIUM CHLORIDE 0.9% 40 ML IV SCH (03:00)
--- NOTE | 2021-03-09 03:25 | XR ---
EXAM: XR Chest, 1 View CLINICAL HISTORY: ITS.REASON XR Reason: Weakness TECHNIQUE: Frontal view of the chest. COMPARISON: No relevant prior studies available. FINDINGS: Lungs: Mild patchy opacities in the right lung apex, bilateral midlungs and left lung base. Pleural space: Unremarkable. No pneumothorax. Heart: Unremarkable. No cardiomegaly. Mediastinum: Unremarkable. Bones/joints: Unremarkable. Tubes, lines and devices: Endotracheal tube tip 5.5 cm above the jonah. Enteric tube tip in the proximal stomach. Upper abdomen: Cholecystectomy clips. IMPRESSION: 1. Endotracheal tube tip 5.5 cm above the jonah. 2. Enteric tube tip in the proximal stomach. 3. Mild patchy opacities in the right lung apex, bilateral midlungs and left lung base. May represent infectious or inflammatory etiology. Correlate with priors if available and consider CT
--- NOTE | 2021-03-09 03:44 | CT ---
EXAM: CT Head Without Intravenous Contrast CLINICAL HISTORY: ITS.REASON CT Reason: weakness TECHNIQUE: Axial computed tomography images of the head/brain without intravenous contrast. CTDI is 49.1 mGy and DLP is 1213.4 mGy-cm. This CT exam was performed using one or more of the following dose reduction techniques: automated exposure control, adjustment of the mA and/or kV according to patient size, and/or use of iterative reconstruction technique. COMPARISON: No relevant prior studies available. FINDINGS: Brain: Mild volume loss with prominent ventricles and sulci. No hemorrhage. No significant white matter disease. Ventricles: See above. Bones/joints: Unremarkable. No acute fracture. Soft tissues: Unremarkable. Sinuses: Paranasal sinus disease with mucosal thickening in the ethmoid air cells and sphenoid sinuses. Mastoid air cells: Unremarkable as visualized. No mastoid effusion. IMPRESSION: No acute findings in the head/brain.
[2021-03-09 03:48] LABS: ABG Base Excess -5.2 mmol/L; ABG HCO3 21 mmol/L (21-25); ABG Oxygen Saturation 99.7 % (94-97); ABG PCO2 43 mmHg (35-45); ABG PO2 >400 mmHg (83-108); ABG TCO2 23 mmol/L (19-24); Allen Test Performed? Yes
[2021-03-09 04:31] LABS: Acetaminophen <10.0 ug/mL; Salicylate <1.0 mg/dL
[2021-03-09 04:52] LABS: Amphetamine Screen,Urine Not Detected (NotDetected); Appearance,Urine Cloudy (Clear); Bacteria,Urine Rare /hpf; Barbiturate Screen,Urine Not Detected (NotDetected); Benzodiazepines Screen,Urine Not Detected (NotDetected); Bilirubin,Urine Negative (Negative); Blood,Urine Negative (Negative); Cocaine Screen,Urine Not Detected (NotDetected); Color,Urine Yellow; Glucose,Urine (UA) Negative (Negative); Hyaline Casts,Urine 225 /lpf (0-2); Ketones,Urine Trace (Negative); Leukocyte Esterase,Urine Small (Negative); Methadone Screen, Urine Not Detected (NotDetected); Mucus,Urine Few /hpf; Nitrite,Urine Negative (Negative); Opiate Screen,Urine Not Detected (NotDetected); Oxycodone Screen, Urine Not Detected (NotDetected); PH, Urine 5.5 (5.0-8.0); Phencyclidine Screen,Urine Not Detected (NotDetected); Protein,Urine 1+ (Negative); RBC,Urine 1 /hpf (0-5); Specific Gravity,Urine 1.021 (1.001-1.035); Squamous Epithelial Cell,Urine 2 /hpf (0-4); Tricyclic Antidepressant,Urine Not Detected (NotDetected); Urn Cannabinoid Scrn Not Detected (NotDetected); Urobilinogen,Urine <2.0 mg/dL (<2.0); WBC,Urine 8 /hpf (0-5)
[2021-03-09] MEDS ORDERED: NALOXONE 0.4 MG/ML 1 ML VIAL IV PRN (05:06)
[2021-03-09] MEDS ORDERED: DEXTROSE 5%-0.9% NACL 1,000 ML IV SCH (05:15)
[2021-03-09] MEDS ORDERED: propofoL 100 ML IV ONE (07:06)
[2021-03-09 07:17] LABS: Glucose,Whole Blood 117 mg/dL (75-99)
[2021-03-09 07:20] LABS: Glucose,Whole Blood 107 mg/dL (75-99)
[2021-03-09] MEDS ORDERED: SODIUM CHLORIDE 0.9% 1,000 ML IV ONE (09:05)
--- NOTE | 2021-03-09 09:54 | P.HPIM ---
History of Present Illness H&P Date: 03/09/21 HISTORY OF PRESENT ILLNESS This is a 50-year-old male patient of with past medical history of essential hypertension, prostate cancer, fibromyalgia, hyperlipidemia, insomnia, adrenal insufficiency, herpes simplex infection, alcohol abuse, remote history of tobacco use. Patient apparently was brought in by EMS for unresponsiveness. Patient was found outside sitting on the curb not acting appropriately and having difficulty walking. Patient initially refused transport by EMS but was brought in and subsequently lost consciousness and worsening symptoms. He was found to be afebrile, heart rate 93, respiratory rate 16, initial blood pressure 76/47, pulse ox 95%. Glucose and Narcan were given without improvement of his mental status. Patient did require intubation secondary to inability to protect airway and episodes of hypoxia and apnea. WBCs 13.8, hemoglobin 10.6, platelet count 196. Sodium 134, potassium 4.0, chloride 101, CO2 19, BUN 27 creatinine 2.74, blood sugar 100. INR 1.0. Phosphorus 4.5, magnesium 2.1, liver function tests were normal. CK 745. TSH 1.120. Albumin 4.3. Ammonia level less than 9, salicylate level less than 1, acetaminophen level less than 10. Urine drug screen was negative. Wound Serum alcohol level less than 10. Lactic acid 1.2. Troponin negative. Pro-BNP 62. Urinalysis cloudy, leukoesterase small, bacteria rare. Coronavirus PCR not detected. EKG was a sinus rhythm with prolonged QT. CAT scan of the brain revealed no acute findings. Chest x-ray discusses ET and enteric tube. Mild patchy opacities in the right lung apex, bilateral midlungs and left lung base. May represent infectious or inflammatory etiology. Patient was started on dextrose, clindamycin, propofol consult with pumping station engineer, oncology, neurology and nephrology REVIEW OF SYSTEMS Unable to obtain due to intubation and mechanical ventilation, mental status changes. MEDICAL HISTORY Essential hypertension Prostate cancer Fibromyalgia Hyperlipidemia Insomnia Adrenal insufficiency Herpes simplex infection SURGICAL HISTORY Tonsillectomy Cholecystectomy Radical gastrectomy in 2007 SOCIAL HISTORY Patient started smoking at age 13 and quit 2 years ago. There is history of alcohol abuse. No known history of drug abuse. FAMILY HISTORY Father at age 66 of myocardial infarction and CVA. Mother at age 77 from old age. Patient has one brother and he is living with ankylosing spondylitis. Patient has 2 sisters and one has history of diabetes type 2 and chronic alcohol abuse. PHYSICAL EXAMINATION Gen: This is a 50-year-old male. He is resting in the ICU bed, intubated and on mechanical ventilation HEENT: Head is atraumatic, normocephalic. Pupils equal, round. Sclerae is anicteric. Oral ETand gastric tube. NECK: Supple. No JVD. No lymphadenopathy. No thyromegaly. LUNGS: Clear to auscultation. No wheezes or rhonchi. No intercostal retractions. HEART: First heart sound is depressed, second heart sound is normal, there is a 2/6 systolic ejection murmur at the left sternal border. No S3 or S4, no JVP. ABDOMEN: Soft. Bowel sounds are present. No masses. No tenderness. Gayle catheter draining clear stephen urine. EXTREMITIES: No pedal edema. Dorsalis pedis +2 bilaterally. NEUROLOGICAL: Patient is sedated. ASSESSMENT AND PLAN 1. Acute metabolic probable infective encephalopathy requiring intubation. 2. Acute hypoxic respiratory failure requiring intubation and mechanical ventilation secondary to bilateral pneumonia, aspiration pneumonia. Consult with pumping station engineer. Continue clindamycin for now. 3. Acute kidney injury with chronic kidney disease stage II. Consult with nephrology. 4. Hypotension and septic shock status post 5 L of IV fluid. 5. Hypertension. 6. History of prostate cancer under the care of Dr. Viveros. Consult with oncology. 7. Adrenal insufficiency. 8. Fibromyalgia. 9. Hyperlipidemia. 10. Herpes simplex infection. 11. GI prophylaxis. Protonix 40 mg IV daily. 12. DVT prophylaxis. Heparin 5000 units subcu 3 times daily. Patient will be admitted to the hospital for a minimum of 2 night stay. DISCHARGE PLAN TBD Impression and plan of care have been directed as dictated by the signing physician. Jia Delgado nurse practitioner acting as scribe for signing physician. Past Medical History Past Medical History: No Reported History Additional Past Medical History / Comment(s): alcoholism History of Any Multi-Drug Resistant Organisms: MRSA Date of last positivie culture/infection: 2007 MDRO Source:: abdomen Past Surgical History: Cholecystectomy, Tonsillectomy Additional Past Surgical History / Comment(s): abdominal sx Past Psychological History: Anxiety, Bipolar, Depression Smoking Status: Unknown if ever smoked Past Alcohol Use History: Abuse Past Drug Use History: Marijuana Medications and Allergies Home Medications Medication Instructions Recorded Confirmed Type Gabapentin [Neurontin] 800 mg PO TID 10/22/14 03/09/21 History Baclofen [Lioresal] 10 - 20 mg PO QID PRN 04/19/17 03/09/21 History Famciclovir [Famvir] 750 mg PO TID 04/19/17 03/09/21 History Midodrine HCl [ProAmatine] 5 - 10 mg PO BID@0800,1200 04/19/17 03/09/21 History Zolpidem Tartrate [Ambien] 10 mg PO HS 04/19/17 03/09/21 History Buprenorphine HCl/Naloxone HCl 0.5 film SL BID 03/09/21 03/09/21 History [Suboxone 8 mg-2 mg Sl Film] Enalapril Maleate 20 mg PO DAILY 03/09/21 03/09/21 History Ferrous Sulfate [Feosol] 325 mg PO DAILY 03/09/21 03/09/21 History buPROPion SR [Wellbutrin Sr] 150 mg PO DAILY 03/09/21 03/09/21 History fluvoxaMINE MALEATE [Fluvoxamine 100 mg PO BID 03/09/21 03/09/21 History Maleate] traMADol HCl [Ultram] 100 mg PO TID 03/09/21 03/09/21 History traZODone HCL 50 - 100 mg PO HS 03/09/21 03/09/21 History Allergies Allergy/AdvReac Type Severity Reaction Status Date / Time Penicillins Allergy Rash/Hives Verified 04/19/17 18:07 Physical Exam Vitals: Vital Signs Temp Pulse Resp BP Pulse Ox 03/09/21 07:00 65 16 109/69 100 03/09/21 06:00 64 16 113/69 100 03/09/21 05:00 65 16 93/55 100 03/09/21 04:45 67 16 85/51 100 03/09/21 04:30 70 20 115/68 100 03/09/21 04:00 73 20 143/81 100 03/09/21 03:30 90 17 139/85 100 03/09/21 03:25 96 16 139/85 100 03/09/21 03:00 66 164/96 100 03/09/21 02:45 91 98/60 100 03/09/21 02:39 95 20 89/58 99 03/09/21 02:30 12 03/09/21 02:27 12 03/09/21 01:16 98 F 93 16 76/47 95 Intake and Output 03/08/21 03/09/21 03/09/21 22:59 06:59 14:59 Other: Weight 86.183 kg Results CBC & Chem 7: 03/11/21 04:03 03/11/21 04:03 Labs: Abnormal Lab Results - Last 24 Hours (Table) 03/09/21 03/09/21 03/09/21 Range/Units 02:02 02:02 02:32 WBC 13.8 H (3.8-10.6) k/uL RBC 3.44 L (4.30-5.90) m/uL Hgb 10.6 L (13.0-17.5) gm/dL Hct 30.8 L (39.0-53.0) % Neutrophils # 12.8 H (1.3-7.7) k/uL Lymphocytes # 0.5 L (1.0-4.8) k/uL ABG pH (7.35-7.45) ABG pO2 (83-108) mmHg ABG O2 Saturation (94-97) % Sodium 134 L (137-145) mmol/L Carbon Dioxide 19 L (22-30) mmol/L BUN 27 H (9-20) mg/dL Creatinine 2.74 H (0.66-1.25) mg/dL Glucose 100 H (74-99) mg/dL POC Glucose (mg/dL) 198 H (75-99) mg/dL Creatine Kinase 745 H (55-170) U/L Urine Protein (Negative) Urine Ketones (Negative) Ur Leukocyte Esterase (Negative) Urine WBC (0-5) /hpf Urine Bacteria (None) /hpf Hyaline Casts (0-2) /lpf Urine Mucus (None) /hpf 03/09/21 03/09/21 03/09/21 Range/Units 03:42 03:47 07:15 WBC (3.8-10.6) k/uL RBC (4.30-5.90) m/uL Hgb (13.0-17.5) gm/dL Hct (39.0-53.0) % Neutrophils # (1.3-7.7) k/uL Lymphocytes # (1.0-4.8) k/uL ABG pH 7.30 L (7.35-7.45) ABG pO2 >400 H (83-108) mmHg ABG O2 Saturation 99.7 H (94-97) % Sodium (137-145) mmol/L Carbon Dioxide (22-30) mmol/L BUN (9-20) mg/dL Creatinine (0.66-1.25) mg/dL Glucose (74-99) mg/dL POC Glucose (mg/dL) 117 H (75-99) mg/dL Creatine Kinase (55-170) U/L Urine Protein 1+ H (Negative) Urine Ketones Trace H (Negative) Ur Leukocyte Esterase Small H (Negative) Urine WBC 8 H (0-5) /hpf Urine Bacteria Rare H (None) /hpf Hyaline Casts 225 H (0-2) /lpf Urine Mucus Few H (None) /hpf 03/09/21 Range/Units 07:18 WBC (3.8-10.6) k/uL RBC (4.30-5.90) m/uL Hgb (13.0-17.5) gm/dL Hct (39.0-53.0) % Neutrophils # (1.3-7.7) k/uL Lymphocytes # (1.0-4.8) k/uL ABG pH (7.35-7.45) ABG pO2 (83-108) mmHg ABG O2 Saturation (94-97) % Sodium (137-145) mmol/L Carbon Dioxide (22-30) mmol/L BUN (9-20) mg/dL Creatinine (0.66-1.25) mg/dL Glucose (74-99) mg/dL POC Glucose (mg/dL) 107 H (75-99) mg/dL Creatine Kinase (55-170) U/L Urine Protein (Negative) Urine Ketones (Negative) Ur Leukocyte Esterase (Negative) Urine WBC (0-5) /hpf Urine Bacteria (None) /hpf Hyaline Casts (0-2) /lpf Urine Mucus (None) /hpf
[2021-03-09 11:04] LABS: % Iron Saturation 9.22 (15.00-50.00); Iron 26 ug/dL (65-175); Lithium <0.1 mmol/L (0.5-1.2); Total Iron Binding Capacity 282 ug/dL (228-460); Valproic Acid (Depakene) <3.0 ug/mL (50.0-100.0)
[2021-03-09 11:05] LABS: Phenytoin (Dilantin) <0.5 ug/mL (10.0-20.0)
[2021-03-09] MEDS: PANTOPRAZOLE 40 MG/10 ML VIAL IV SCH (11:45)
[2021-03-09 12:01] LABS: Glucose,Whole Blood 87 mg/dL (75-99)
--- NOTE | 2021-03-09 14:33 | P.CNPUL ---
History of Present Illness Consult date: 03/09/21 Requesting physician: Radha Sierra Reason for consult: other (Altered mental status and hypoxic respiratory failure) Chief complaint: Altered mental status History of present illness: This is a 50-year-old white male, known history of hypertension, fibromyalgia, adrenal insufficiency, herpes simplex infection, alcohol abuse, patient was brought in by EMS with unresponsiveness. Patient was found at the curb not acting properly, and having difficulty walking. Someone called EMS, and upon EMS arrival, patient was refusing transport however his mental status deteriorated and upon arrival to the ER patient became unconscious. And he required intubation in the ER. Blood pressure was noted to be low at the time 76/47. Patient was given dextrose and Narcan, but no improvement in his mental status initially. It was felt by the ER physician that the patient could not protect his airways, and he was having episodes of hypoxia and apnea. He was intubated and placed on mechanical ventilation. Computed tomography scan of the brain showed no acute change. X-ray showed nonspecific bilateral infiltrates. PCR for COVID-19 was negative and EKG showed sinus rhythm with prolonged QT intervals. Patient was admitted to the ICU post intubation, and I was asked to see him on consultation. Not much history could be obtained from the patient, patient is now sedated, and when propofol was weaned off, patient became extremely agitated but not appropriate. Hence had to be placed back on pr opofol. He is now on assist control rate of 20,000 volume 450 FiO2 40% PEEP of 5. ABG showed a pO2 of more than 400 pCO2 of 43 pH of 7.30. Hence his FiO2 was decreased down to 35%. Patient is on propofol at 20 mcg/kg/m, IV fluids 0.9 normal saline at 130 per hour. And I have recommended a fluid bolus of 1 L 0.9 normal saline to this patient at that his blood pressure was marginal. He added clindamycin since I'm suspecting some component of aspiration noted on the chest x-ray with bilateral infiltrates. Drug screen was negative serum alcohol was less than 10 ammonia level was less than 9. CPK however was elevated at 745, and I believe the patient may have fallen since he wasn't able to walk properly upon his initial evaluation by EMS. Review of Systems ROS unobtainable: due to endotracheal tube Past Medical History Past Medical History: No Reported History Additional Past Medical History / Comment(s): alcoholism History of Any Multi-Drug Resistant Organisms: MRSA Date of last positivie culture/infection: 2007 MDRO Source:: abdomen Past Surgical History: Cholecystectomy, Tonsillectomy Additional Past Surgical History / Comment(s): abdominal sx Past Psychological History: Anxiety, Bipolar, Depression Smoking Status: Unknown if ever smoked Past Alcohol Use History: Abuse Past Drug Use History: Marijuana Medications and Allergies Home Medications Medication Instructions Recorded Confirmed Type Gabapentin [Neurontin] 800 mg PO TID 10/22/14 03/09/21 History Baclofen [Lioresal] 10 - 20 mg PO QID PRN 04/19/17 03/09/21 History Famciclovir [Famvir] 750 mg PO TID 04/19/17 03/09/21 History Midodrine HCl [ProAmatine] 5 - 10 mg PO BID@0800,1200 04/19/17 03/09/21 History Zolpidem Tartrate [Ambien] 10 mg PO HS 04/19/17 03/09/21 History Buprenorphine HCl/Naloxone HCl 0.5 film SL BID 03/09/21 03/09/21 History [Suboxone 8 mg-2 mg Sl Film] Enalapril Maleate 20 mg PO DAILY 03/09/21 03/09/21 History Ferrous Sulfate [Feosol] 325 mg PO DAILY 03/09/21 03/09/21 History buPROPion SR [Wellbutrin Sr] 150 mg PO DAILY 03/09/21 03/09/21 History fluvoxaMINE MALEATE [Fluvoxamine 100 mg PO BID 03/09/21 03/09/21 History Maleate] traMADol HCl [Ultram] 100 mg PO TID 03/09/21 03/09/21 History traZODone HCL 50 - 100 mg PO HS 03/09/21 03/09/21 History Allergies Allergy/AdvReac Type Severity Reaction Status Date / Time Penicillins Allergy Rash/Hives Verified 04/19/17 18:07 Physical Exam Vitals: Vital Signs Temp Pulse Resp BP Pulse Ox 03/09/21 13:00 52 L 20 94/56 94 L 03/09/21 12:00 98.3 F 52 L 20 79/51 95 03/09/21 11:20 54 L 17 74/43 95 03/09/21 07:00 65 16 113/61 100 03/09/21 06:00 68 20 105/64 100 03/09/21 05:00 65 20 85/51 100 03/09/21 04:45 67 16 85/51 100 03/09/21 04:30 70 20 115/68 100 03/09/21 04:00 73 20 143/81 100 03/09/21 03:30 90 17 139/85 100 03/09/21 03:25 96 16 139/85 100 03/09/21 03:00 66 164/96 100 03/09/21 02:45 91 98/60 100 03/09/21 02:39 95 20 89/58 99 03/09/21 02:30 12 03/09/21 02:27 12 03/09/21 01:16 98 F 93 16 76/47 95 Intake and Output 03/08/21 03/09/21 03/09/21 22:59 06:59 14:59 Intake Total 1999 Output Total 35 Balance 1965 Intake: IV 1999 0.9 1999 Output: Urine 35 Other: Voiding Method Indwelling Catheter Weight 86.183 kg Physical Exam revealed 50-year-old male sedated, intubated and mechanically ventilated, in no distress, however noted agitated when propofol was cut down to assess mental status but was not appropriate. Head: Atraumatic, normocephalic, endotracheal tube and orogastric tube is intact. HEENT:[ Pinpoint pupils noted Neck is supple.] [No neck masses.] [No thyromegaly.] [No JVD.] Chest: [Symmetrical chest expansion. Fine crackles at the bases., no rhonchi, no wheezes.] Cardiac Exam: [Normal S1 and S2, no S3 gallop, 2/6 systolic murmur thought the precordium. Abdomen: [Soft, nontender, no megaly, no rebound, no guarding, normal bowel sounds.] Extremities: [No clubbing, no edema, no cyanosis.] Musculoskeletal: No deformities. Could not assess range of motion. Neurological Exam: Could not assess, patient is on propofol, and when the propofol dose was decreased recently became extremely agitated. And not appropriate. Psychiatric: Could not assess. Patient is on propofol. Results - Laboratory Findings CBC and BMP: 03/09/21 02:02 03/09/21 02:02 ABG ABG pH 7.30 (7.35-7.45) L 03/09/21 03:42 ABG pCO2 43 mmHg (35-45) 03/09/21 03:42 ABG pO2 >400 mmHg (83-108) H 03/09/21 03:42 ABG O2 Saturation 99.7 % (94-97) H 03/09/21 03:42 PT/INR, D-dimer PT 10.8 sec (9.0-12.0) 03/09/21 02:02 INR 1.0 (<1.2) 03/09/21 02:02 Abnormal lab findings: Abnormal Labs 03/09/21 03/09/21 03/09/21 02:02 02:02 02:32 WBC 13.8 H RBC 3.44 L Hgb 10.6 L Hct 30.8 L Neutrophils # 12.8 H Lymphocytes # 0.5 L ABG pH ABG pO2 ABG O2 Saturation Sodium 134 L Carbon Dioxide 19 L BUN 27 H Creatinine 2.74 H Glucose 100 H POC Glucose (mg/dL) 198 H Iron % Saturation Creatine Kinase 745 H Urine Protein Urine Ketones Ur Leukocyte Esterase Urine WBC Urine Bacteria Hyaline Casts Urine Mucus Phenytoin Valproic Acid [place] 03/09/21 03/09/21 03/09/21 03:42 03:47 05:13 WBC RBC Hgb Hct Neutrophils # Lymphocytes # ABG pH 7.30 L ABG pO2 >400 H ABG O2 Saturation 99.7 H Sodium Carbon Dioxide BUN Creatinine Glucose POC Glucose (mg/dL) Iron 26 L % Saturation 9.22 L Creatine Kinase Urine Protein 1+ H Urine Ketones Trace H Ur Leukocyte Esterase Small H Urine WBC 8 H Urine Bacteria Rare H Hyaline Casts 225 H Urine Mucus Few H Phenytoin <0.5 L Valproic Acid <3.0 L [place] <0.1 L 03/09/21 03/09/21 07:15 07:18 WBC RBC Hgb Hct Neutrophils # Lymphocytes # ABG pH ABG pO2 ABG O2 Saturation Sodium Carbon Dioxide BUN Creatinine Glucose POC Glucose (mg/dL) 117 H 107 H Iron % Saturation Creatine Kinase Urine Protein Urine Ketones Ur Leukocyte Esterase Urine WBC Urine Bacteria Hyaline Casts Urine Mucus Phenytoin Valproic Acid [place] - Diagnostic Findings Chest x-ray: image reviewed (As noted in HPI.) Additional studies: Brain CT as noted in HPI. EKG as noted in HPI. Assessment and Plan Assessment: Impression: Altered mental status, acute toxic metabolic encephalopathy, exact etiology is unclear. Acute hypoxic respiratory failure and inability to protect airway secondary to above. Requiring intubation and mechanical ventilation Acute kidney injury with history of chronic kidney disease stage II., Nephrology to evaluate. Hypovolemic hypotension requiring 5 L of IV fluids on arrival, sepsis is possible but felt to be less likely. Cultures are pending. Acute aspiration pneumonia is strongly suspected. History of prostate cancer. History of a deal insufficiency, may consider stress doses of hydrocortisone on this patient. Will order serum cortisol level. Fibromyalgia. History of alcoholism noted in the chart. Recommendation: Continue ventilatory support. Continue antibiotics empirically/clindamycin for presumptive aspiration pneumonia. Continue IV fluids. Check serum cortisol and consider stress doses of hydrocortisone. Neurology to see on consultation. Nephrology to see on consultation. Nutritional support/enteral feeding. Daily assessment for weaning today the patient is not amenable since he became extremely agitated as soon as the propofol dose was cut down Daily assessment of labs and chest x-ray. His is definitely poor and guarded, we'll continue to follow. Patient is definitely critically ill. Time with Patient: Greater than 30
[2021-03-09] MEDS: SODIUM CHLORIDE 0.9% 1,000 ML IV SCH ×2 (14:55→23:35)
[2021-03-09] MEDS: HEPARIN SODIUM,PORCINE/PF 5,000 UNIT/0.5 ML SYRINGE SQ SCH ×2 (15:12→23:36)
[2021-03-09] MEDS: HYDROCORTISONE SUCCINATE 100 MG/2 ML VIAL IV SCH ×2 (15:12→23:36)
[2021-03-09] MEDS: NOREPINEPHRINE 4 MG in SODIUM CHLORIDE 0.9% 250 ML IV SCH (15:29)
[2021-03-09] MEDS: CLINDAMYCIN 600 MG in DEXTROSE 5% IN WATER 50 ML IVPB SCH ×4 (15:29→23:35)
[2021-03-09] MEDS ORDERED: ARTIFICIAL TEARS-HYPROMELLOSE DROPS 15 ML BTL BOTH EYES PRN (17:28)
[2021-03-09] MEDS ORDERED: ACETAMINOPHEN TAB 325 MG TAB PO PRN (17:28)
--- NOTE | 2021-03-09 18:21 | P.CONS ---
History of Present Illness - Reason for Consult Consult date: 03/09/21 Known history of Prostate Ca Requesting physician: Jonas Alonso - Chief Complaint Disorientation - History of Present Illness This is a very nice patient who was diagnosed with prostate cancer group 3 (cT1,cN0,M0) high risk, while he was incarcerated, On 02/12/2020,his PSA was 18.5 (previous PSA in August/2019 was 11) On 03/17/2020,he had prostate biopsy,pathology revealed Pat 4+3 in one core,the remainder cores was 3+4,total 5/12 cores were positive,his PSA on 06/08/2020 was 23.1 he had a bone scan and CT scan of chest/abdomen/pelvis which were negative for metastatic disease except for questionable lesion in cervical spine,he had MRI of C-spine which was negative for metastatic disease and the lesion found on bone scan felt to represent hemangioma. He stated he had one leupron injection,in [place] prior to starting XRT. He started radiation therapy radiation therapy in [place] on on until 08/12/2020 then transferred care to [facility] in [place], resumed radiation on 08/28/2020 and he completed EBRT on 10/13/2020. He was also seen at [facility] who recommended adjuvant 18-24 months of ADT. He used to smoke and drink heavely,he stated he stopped since he became incarcerated. He has issues with fibromyalgia,was treated with his Dr in [facility] before he come back to [place],he is on gabapentin and tramadol for that. On 11/02/2020,PSA was 0.4. On 11/11/2020,he started adjuvant eligard He has some hot flashes,he came in today to re discuss his treatment options,he is not tolerating LHRH agonist,he stated that he is making his fibromyalgia worse and worsening " his immune system"He does not want to continue with it. Last visit with Dr. Viveros in January he had a long discussion with the patient. LHRH agonist in his case is given as adjuvant since he has high risk disease and high risk of recurrence. He decided to stop it,understanding his risk,he wants to go to urology in [facility] and he is insisting on have his prostate removed. He now presents to the emergency room by way of EMS after he was found in public disoriented, possibly at one time unresponsive. Toxicology was negative and alcohol level negative. Review of Systems ROS unobtainable: due to endotracheal tube Past Medical History Past Medical History: No Reported History Additional Past Medical History / Comment(s): alcoholism History of Any Multi-Drug Resistant Organisms: MRSA Year Discovered:: 2007 MDRO Source:: abdomen Past Surgical History: Cholecystectomy, Tonsillectomy Additional Past Surgical History / Comment(s): abdominal sx Past Psychological History: Anxiety, Bipolar, Depression Smoking Status: Unknown if ever smoked Past Alcohol Use History: Abuse Past Drug Use History: Marijuana Medications and Allergies Home Medications Medication Instructions Recorded Confirmed Type Gabapentin [Neurontin] 800 mg PO TID 10/22/14 03/09/21 History Baclofen [Lioresal] 10 - 20 mg PO QID PRN 04/19/17 03/09/21 History Famciclovir [Famvir] 750 mg PO TID 04/19/17 03/09/21 History Midodrine HCl [ProAmatine] 5 - 10 mg PO BID@0800,1200 04/19/17 03/09/21 History Zolpidem Tartrate [Ambien] 10 mg PO HS 04/19/17 03/09/21 History Buprenorphine HCl/Naloxone HCl 0.5 film SL BID 03/09/21 03/09/21 History [Suboxone 8 mg-2 mg Sl Film] Enalapril Maleate 20 mg PO DAILY 03/09/21 03/09/21 History Ferrous Sulfate [Feosol] 325 mg PO DAILY 03/09/21 03/09/21 History buPROPion SR [Wellbutrin Sr] 150 mg PO DAILY 03/09/21 03/09/21 History fluvoxaMINE MALEATE [Fluvoxamine 100 mg PO BID 03/09/21 03/09/21 History Maleate] traMADol HCl [Ultram] 100 mg PO TID 03/09/21 03/09/21 History traZODone HCL 50 - 100 mg PO HS 03/09/21 03/09/21 History Allergies Allergy/AdvReac Type Severity Reaction Status Date / Time Penicillins Allergy Rash/Hives Verified 04/19/17 18:07 Physical Exam Vitals: Vital Signs Temp Pulse Resp BP Pulse Ox 03/09/21 05:00 65 16 93/55 100 03/09/21 04:45 67 16 85/51 100 03/09/21 04:30 70 20 115/68 100 03/09/21 04:00 73 20 143/81 100 03/09/21 03:30 90 17 139/85 100 03/09/21 03:25 96 16 139/85 100 03/09/21 03:00 66 164/96 100 03/09/21 02:45 91 98/60 100 03/09/21 02:39 95 20 89/58 99 03/09/21 02:30 12 03/09/21 02:27 12 03/09/21 01:16 98 F 93 16 76/47 95 Intake and Output 03/08/21 03/09/21 03/09/21 22:59 06:59 14:59 Other: Weight 86.183 kg Intubated Sedated Gayle catheter to clear stephen urine No edema No rashes distal pulses present Results CBC & Chem 7: 03/09/21 02:02 03/09/21 02:02 Labs: Abnormal Lab Results - Last 24 Hours (Table) 03/09/21 03/09/21 03/09/21 Range/Units 02:02 02:02 02:32 WBC 13.8 H (3.8-10.6) k/uL RBC 3.44 L (4.30-5.90) m/uL Hgb 10.6 L (13.0-17.5) gm/dL Hct 30.8 L (39.0-53.0) % Neutrophils # 12.8 H (1.3-7.7) k/uL Lymphocytes # 0.5 L (1.0-4.8) k/uL ABG pH (7.35-7.45) ABG pO2 (83-108) mmHg ABG O2 Saturation (94-97) % Sodium 134 L (137-145) mmol/L Carbon Dioxide 19 L (22-30) mmol/L BUN 27 H (9-20) mg/dL Creatinine 2.74 H (0.66-1.25) mg/dL Glucose 100 H (74-99) mg/dL POC Glucose (mg/dL) 198 H (75-99) mg/dL Creatine Kinase 745 H (55-170) U/L Urine Protein (Negative) Urine Ketones (Negative) Ur Leukocyte Esterase (Negative) Urine WBC (0-5) /hpf Urine Bacteria (None) /hpf Hyaline Casts (0-2) /lpf Urine Mucus (None) /hpf 03/09/21 03/09/21 Range/Units 03:42 03:47 WBC (3.8-10.6) k/uL RBC (4.30-5.90) m/uL Hgb (13.0-17.5) gm/dL Hct (39.0-53.0) % Neutrophils # (1.3-7.7) k/uL Lymphocytes # (1.0-4.8) k/uL ABG pH 7.30 L (7.35-7.45) ABG pO2 >400 H (83-108) mmHg ABG O2 Saturation 99.7 H (94-97) % Sodium (137-145) mmol/L Carbon Dioxide (22-30) mmol/L BUN (9-20) mg/dL Creatinine (0.66-1.25) mg/dL Glucose (74-99) mg/dL POC Glucose (mg/dL) (75-99) mg/dL Creatine Kinase (55-170) U/L Urine Protein 1+ H (Negative) Urine Ketones Trace H (Negative) Ur Leukocyte Esterase Small H (Negative) Urine WBC 8 H (0-5) /hpf Urine Bacteria Rare H (None) /hpf Hyaline Casts 225 H (0-2) /lpf Urine Mucus Few H (None) /hpf CT Scan - head: report reviewed Assessment and Plan (1) Prostate cancer Current Visit: Yes Status: Acute Code(s): C61 - MALIGNANT NEOPLASM OF PROSTATE SNOMED Code(s): 266344569 (2) ARF (acute renal failure) Current Visit: Yes Status: Acute Code(s): N17.9 - ACUTE KIDNEY FAILURE, UNSPECIFIED SNOMED Code(s): 52322395 (3) Altered mental status Current Visit: Yes Status: Acute Code(s): R41.82 - ALTERED MENTAL STATUS, UNSPECIFIED SNOMED Code(s): 232060387 (4) Respiratory failure Current Visit: Yes Status: Acute Code(s): J96.90 - RESPIRATORY FAILURE, UNSP, UNSP W HYPOXIA OR HYPERCAPNIA SNOMED Code(s): 275735568 (5) Leukocytosis, unspecified Current Visit: Yes Status: Acute Code(s): D72.829 - ELEVATED WHITE BLOOD CELL COUNT, UNSPECIFIED SNOMED Code(s): 826483332 (6) Normocytic anemia Current Visit: Yes Status: Acute Code(s): D64.9 - ANEMIA, UNSPECIFIED SNOMED Code(s): 984822870 (7) Iron (Fe) deficiency anemia Current Visit: Yes Status: Acute Code(s): D50.9 - IRON DEFICIENCY ANEMIA, UNSPECIFIED SNOMED Code(s): 24923545 Plan: Assessment and Recommendations: Acute Encephalopathy: - Unclear Etiology Normocytic Anemia: - Iron studies show component of possible iron deficiency however ferritin is 101. - GI work-up recommended, if hemoglobin remains stable than can follow-up as outpatient for this. - If septic work-up negative, may replace Iron via IV Leukocytosis: - Infectious work-up pending - Likely reactive Acute Respiratory Failure, Secondary to above - Ventilator Support to maintain airway: - Per Pulmonary and Care of ICU Acute Kidney Injury, with known CKD stage 2 - Hydration and care per primary teams and nephrology Prostate Cancer: - PLan was to follow[facility] with [facility] as he has refused further adjuvant therapy with Lupron given the side effects. - Unknown if this has been performed - CT scans once renal functions recovers to assess for metastatic disease versus other cuases of acute presentation Physician Attest: I have completed the full history and physical and agree with above dictation, dictated as a scribe
[2021-03-09 18:34] LABS: Glucose,Whole Blood 100 mg/dL (75-99)
--- NOTE | 2021-03-09 19:05 | P.CNNES ---
History of Present Illness Consult date: 03/09/21 Requesting physician: Jonas Alonso Reason for Consult: Neuro evaluation, AMS History of Present Illness: Patient is a 50-year-old male brought to the hospital by ambulance today siebel consultant at 1:10 AM. Patient at present is intubated, not able to provide any history. Per EMS flow sheet, when they arrive, patient was found sitting on the sidewalk, showing no signs of respiratory distress. Patient was alert and oriented 4, GCS 15. Patient was slightly lethargic and slow to respond to questions. Patient denied any pain and denies drug and alcohol use. Patient's gait was abnormal and unable to stand without assistance. Patient agreed to be transported to the hospital but refused vital signs. The vital signs on arrival blood pressure was 76/47, pulse rate 93 temperature 98.0. Patient's blood pr essure remained low, would then went up to 164/96. Patient's mental status deteriorated and upon arrival to the ER patient became unconscious. Patient was intubated in the ER. Patient was given dextrose and Narcan without improvement. Patient was given a fluid bolus. CT head showed no acute process. EKG with normal sinus rhythm. Chest x-ray with mild patchy opacities in the right lung apex, bilateral midlungs and left lung base. May represent infectious or inflammatory etiology. Patient's blood test shows ability C 13.8 hemoglobin 10.6, normal MCV. PT/PTT is normal. Sodium 134 potassium 4.0, BUN 27, creatinine 2.74. Hepatic panel normal. CPK 745. B12 857 and vitamin D 51.9 TSH and cortisol normal. UA shows small leukocyte Estrace. Rare bacteria. Urine drug screen negative blood alcohol level negative. Lea virus PCR negative. *Electronic records, patient has history of hypertension, adrenal insufficiency, alcohol abuse. Patient's home medication include gabapentin 800 mg 3 times a day, baclofen, middle drain 5-10 mg twice a day Ambien, Suboxone, in the lateral, Wellbutrin 150 mg daily, fluoxetine 100 mg twice a day, tramadol 100 mg 3 times a day and trazodone 50-100 mg at bedtime. Review of Systems ROS unobtainable: due to endotracheal tube, due to mental status Past Medical History Past Medical History: No Reported History Additional Past Medical History / Comment(s): alcoholism History of Any Multi-Drug Resistant Organisms: MRSA Date of last positivie culture/infection: 2007 MDRO Source:: abdomen Past Surgical History: Cholecystectomy, Tonsillectomy Additional Past Surgical History / Comment(s): abdominal sx Past Psychological History: Anxiety, Bipolar, Depression Smoking Status: Unknown if ever smoked Past Alcohol Use History: Abuse Past Drug Use History: Marijuana Medications and Allergies Home Medications Medication Instructions Recorded Confirmed Type Gabapentin [Neurontin] 800 mg PO TID 10/22/14 03/09/21 History Baclofen [Lioresal] 10 - 20 mg PO QID PRN 04/19/17 03/09/21 History Famciclovir [Famvir] 750 mg PO TID 04/19/17 03/09/21 History Midodrine HCl [ProAmatine] 5 - 10 mg PO BID@0800,1200 04/19/17 03/09/21 History Zolpidem Tartrate [Ambien] 10 mg PO HS 04/19/17 03/09/21 History Buprenorphine HCl/Naloxone HCl 0.5 film SL BID 03/09/21 03/09/21 History [Suboxone 8 mg-2 mg Sl Film] Enalapril Maleate 20 mg PO DAILY 03/09/21 03/09/21 History Ferrous Sulfate [Feosol] 325 mg PO DAILY 03/09/21 03/09/21 History buPROPion SR [Wellbutrin Sr] 150 mg PO DAILY 03/09/21 03/09/21 History fluvoxaMINE MALEATE [Fluvoxamine 100 mg PO BID 03/09/21 03/09/21 History Maleate] traMADol HCl [Ultram] 100 mg PO TID 03/09/21 03/09/21 History traZODone HCL 50 - 100 mg PO HS 03/09/21 03/09/21 History Allergies Allergy/AdvReac Type Severity Reaction Status Date / Time Penicillins Allergy Rash/Hives Verified 04/19/17 18:07 Physical Examination - Vital Signs Vital Signs: Vital Signs Temp Pulse Resp BP Pulse Ox 03/09/21 13:00 52 L 20 94/56 94 L 03/09/21 12:00 98.3 F 52 L 20 79/51 95 03/09/21 11:20 54 L 17 74/43 95 03/09/21 07:00 65 16 113/61 100 03/09/21 06:00 68 20 105/64 100 03/09/21 05:00 65 20 85/51 100 03/09/21 04:45 67 16 85/51 100 03/09/21 04:30 70 20 115/68 100 03/09/21 04:00 73 20 143/81 100 03/09/21 03:30 90 17 139/85 100 03/09/21 03:25 96 16 139/85 100 03/09/21 03:00 66 164/96 100 03/09/21 02:45 91 98/60 100 03/09/21 02:39 95 20 89/58 99 03/09/21 02:30 12 03/09/21 02:27 12 03/09/21 01:16 98 F 93 16 76/47 95 Intake and Output 03/08/21 03/09/21 03/09/21 22:59 06:59 14:59 Intake Total 1999 Output Total 35 Balance 1965 Intake: IV 1999 0.9 1999 Output: Urine 35 Other: Voiding Method Indwelling Catheter Weight 86.183 kg Patient is a middle aged male, who is intubated, sedated on propofol 30 g. Speech and language functions cannot be assessed. Attention, concentration and fund of knowledge cannot be assessed. On cranial examination, pupils are round and sluggishly reacting to light, visual nelson cannot be checked, extraocular muscles cannot be checked, but oculocephalics are mildly present. Face, tongue hearing and shoulder shrug cannot be assessed. On muscle strength testing, patient appears to have normal tone in the arms and legs. Deep tendon reflexes are diminished, trace to 1, and plantars downgoing. Sensory patient grimaces to nailbed pressure equally in bilateral upper limbs. Cerebellar function cannot be tested. Gait cannot be tested. On general examination, there is no carotid bruit or murmur, S1-S2 audible. Abdomen is soft nontender. Patient has high arched feet. Results - Laboratory Findings CBC and BMP: 03/09/21 02:02 03/09/21 02:02 Abnormal Lab Findings: Abnormal Labs 03/09/21 03/09/21 03/09/21 02:02 02:02 02:32 WBC 13.8 H RBC 3.44 L Hgb 10.6 L Hct 30.8 L Neutrophils # 12.8 H Lymphocytes # 0.5 L ABG pH ABG pO2 ABG O2 Saturation Sodium 134 L Carbon Dioxide 19 L BUN 27 H Creatinine 2.74 H Glucose 100 H POC Glucose (mg/dL) 198 H Iron % Saturation Creatine Kinase 745 H Urine Protein Urine Ketones Ur Leukocyte Esterase Urine WBC Urine Bacteria Hyaline Casts Urine Mucus Phenytoin Valproic Acid [place] 03/09/21 03/09/21 03/09/21 03:42 03:47 05:13 WBC RBC Hgb Hct Neutrophils # Lymphocytes # ABG pH 7.30 L ABG pO2 >400 H ABG O2 Saturation 99.7 H Sodium Carbon Dioxide BUN Creatinine Glucose POC Glucose (mg/dL) Iron 26 L % Saturation 9.22 L Creatine Kinase Urine Protein 1+ H Urine Ketones Trace H Ur Leukocyte Esterase Small H Urine WBC 8 H Urine Bacteria Rare H Hyaline Casts 225 H Urine Mucus Few H Phenytoin <0.5 L Valproic Acid <3.0 L [place] <0.1 L 03/09/21 03/09/21 07:15 07:18 WBC RBC Hgb Hct Neutrophils # Lymphocytes # ABG pH ABG pO2 ABG O2 Saturation Sodium Carbon Dioxide BUN Creatinine Glucose POC Glucose (mg/dL) 117 H 107 H Iron % Saturation Creatine Kinase Urine Protein Urine Ketones Ur Leukocyte Esterase Urine WBC Urine Bacteria Hyaline Casts Urine Mucus Phenytoin Valproic Acid [place] Assessment and Plan Assessment: * Altered mental status, likely due to toxic metabolic encephalopathy. Patient was on very high-dose gabapentin, which may have become toxic because of acute renal failure. Gabapentin is excreted renally. * Rule out unwitnessed seizure. Patient on Wellbutrin and tramadol, which can lower seizure threshold. Some reported history of possible alcoholism. * Acute hypoxic respiratory failure requiring intubation and mechanical ventilation. Bilateral pneumonia. * Acute kidney injury. * Hypertension on arrival, possible shock. * Hypertension * History of prostate cancer * Adrenal insufficiency Plan: * EEG to evaluate for epileptiform activity, versus encephalopathy. * Stop tramadol and Wellbutrin. * Hold gabapentin for now, check gabapentin level. * B12 857, vitamin D level 40, normal. * Medical management as per IM, critical care and other specialties.
--- NOTE | 2021-03-09 19:17 | CONS ---
CONSULTATION REASON FOR CONSULT: Acute kidney injury. HISTORY OF PRESENT ILLNESS: Patient is a 50-year-old male who was admitted to the hospital as he was found on the road by a bystander. The patient was barely responsive when he was brought into the ER. His blood pressure was low at 76/47 when he first came in. He does have a history of EtOH abuse but his alcohol screen was negative. The patient was given Narcan with no improvement in mentation. He was eventually intubated and admitted to the ICU. Coronavirus PCR is negative. The patient has a history of prostatic CA which is mostly localized pain and he follows with Oncology. His blood pressure has been on the lower side with occasional systolic in the 70s, particularly after propofol was started. Urine output at about 20-25 mL an hour. Review of previous labs shows a creatinine 1.0 on 02/05/2021. Review of home medications shows patient is maintained on midodrine and he is also on enalapril. PAST MEDICAL HISTORY: Hypertension, history of prostate cancer, history of EtOH abuse, hyperlipidemia, history of adrenal insufficiency, herpes simplex infection. PAST SURGICAL HISTORY: Tonsillectomy, cholecystectomy, radical gastrectomy. SOCIAL HISTORY: Positive for former smoker, the patient quit about two years ago. PHYSICAL EXAMINATION: Patient is currently comfortable. He is on the vent, sedated. Blood pressure is low with systolic in the 70s, heart rate of 65 per minute, he is afebrile. Examination of the heart S1, S2. Examination of the lungs, bilateral breath sounds are heard. Abdomen is soft, nontender. Examination of lower extremities shows no evidence of edema. TEMPERATURE INSPECTOR exam cannot be performed. LAB: Show sodium 134, potassium 4.0, chloride 101, CO2 is 19, BUN of 27, creatinine 2.74, hemoglobin 10.6 g/dL. ASSESSMENT: 1. Acute kidney injury, acute tubular necrosis, nonoliguric secondary to hypotension hypoperfusion in the setting of use of MACI inhibitors prior to admission. Continue with aggressive fluid resuscitation. Avoid nephrotoxic agents. Repeat labs in a.m. 2. History of prostate cancer which is localized, being followed by Oncology. 3. Hypovolemic hyponatremia. Expect improvement with continued saline administration. 4. Acute hypoxic respiratory failure, being considered for possible weaning. 5. Anemia, multifactorial. PLAN: Repeat labs in a.m. Repeat IV fluid bolus. Avoid nephrotoxic agents. May continue with empiric antibiotics. Thank you for this consultation. We will continue to follow the patient with you during his hospitalization. MMODL / IJN: [id number] /
[2021-03-09] MEDS: CHLORHEXIDINE GLUCONATE 15 ML CUP MUCOUS MEM SCH (20:00)
[2021-03-09] MEDS: IPRATROPIUM-ALBUTEROL 3 ML NEB INHALATION PRN (20:20)
[2021-03-09 23:35] LABS: Glucose,Whole Blood 105 mg/dL (75-99)
[2021-03-10 04:48] LABS: Basophils % (A) 0 %; Eosinophils % (A) 0 %; HCT 28.9 % (39.0-53.0); HGB 10.1 gm/dL (13.0-17.5); Lymphocytes # (A) 0.3 k/uL (1.0-4.8); Lymphocytes % (A) 4 %; MCH 31.6 pg (25.0-35.0); MCHC 34.9 g/dL (31.0-37.0); MCV 90.6 fL (80.0-100.0); Mean Platelet Volume 7.8; Monocytes # (A) 0.2 k/uL (0-1.0); Monocytes % (A) 2 %; Neutrophils # (A) 7.8 k/uL (1.3-7.7); Neutrophils % (A) 93 %; Platelet Count 182 k/uL (150-450); RDW 14.1 % (11.5-15.5); WBC 8.4 k/uL (3.8-10.6)
[2021-03-10 04:53] LABS: ABG Base Excess -4.2 mmol/L; ABG HCO3 21 mmol/L (21-25); ABG Oxygen Saturation 98.8 % (94-97); ABG PCO2 39 mmHg (35-45); ABG PH 7.35 (7.35-7.45); ABG PO2 140 mmHg (83-108); ABG TCO2 23 mmol/L (19-24); Allen Test Performed? Yes
[2021-03-10 05:13] LABS: ALT 20 U/L (4-49); AST 39 U/L (17-59); African American GFR (CKD) >90 (>60 ml/min/1.73 sqM); Albumin 3.2 g/dL (3.5-5.0); Alkaline Phosphatase 73 U/L (38-126); Anion Gap 7 mmol/L; Blood Urea Nitrogen 19 mg/dL (9-20); Calcium 9.1 mg/dL (8.4-10.2); Carbon Dioxide 21 mmol/L (22-30); Chloride 111 mmol/L (98-107); Glucose 115 mg/dL (74-99); Magnesium 2.3 mg/dL (1.6-2.3); Non-African American GFR(CKD) 83 (>60 ml/min/1.73 sqM); Phosphorus 3.9 mg/dL (2.5-4.5); Potassium 4.8 mmol/L (3.5-5.1); Sodium 139 mmol/L (137-145); Total Bilirubin <0.1 mg/dL (0.2-1.3); Total Protein 5.6 g/dL (6.3-8.2)
[2021-03-10] MEDS: SODIUM CHLORIDE 0.9% 1,000 ML IV SCH ×3 (06:42→21:10)
[2021-03-10] MEDS: IPRATROPIUM-ALBUTEROL 3 ML NEB INHALATION PRN (07:17)
--- NOTE | 2021-03-10 08:11 | XR ---
EXAMINATION TYPE: XR chest 1V portable DATE OF EXAM: 03/10/2021 COMPARISON: 03/09/2021 HISTORY: Weakness TECHNIQUE: Single frontal view of the chest is obtained. FINDINGS: ET and NG tubes stable. Heart size is normal. No pneumothorax. Chronic appearing deformity of the right clavicle. Mildly coarsened interstitium. Elevated right hemidiaphragm with subsegmental basilar consolidation bilaterally. IMPRESSION: 1. Patchy bilateral areas of subsegmental consolidation stable.
--- NOTE | 2021-03-10 08:35 | P.PN ---
Subjective Progress Note Date: 03/10/21 HISTORY OF PRESENT ILLNESS This is a 50-year-old male patient of with past medical history of essential hypertension, prostate cancer, fibromyalgia, hyperlipidemia, insomnia, adrenal insufficiency, herpes simplex infection, alcohol abuse, remote history of tobacco use. Patient apparently was brought in by EMS for unresponsiveness. Patient was found outside sitting on the curb not acting appropriately and having difficulty walking. Patient initially refused transport by EMS but was brought in and subsequently lost consciousness and worsening symptoms. He was found to be afebrile, heart rate 93, respiratory rate 16, initial blood pressure 76/47, pulse ox 95%. Glucose and Narcan were given without improvement of his mental status. Patient did require intubation secondary to inability to protect airway and episodes of hypoxia and apnea. WBCs 13.8, hemoglobin 10.6, platelet count 196. Sodium 134, potassium 4.0, chloride 101, CO2 19, BUN 27 creatinine 2.74, blood sugar 100. INR 1.0. Phosphorus 4.5, magnesium 2.1, liver function tests were normal. CK 745. TSH 1.120. Albumin 4.3. Ammonia level less than 9, salicylate level less than 1, acetaminophen level less than 10. Urine drug screen was negative. Wound Serum alcohol level less than 10. Lactic acid 1.2. Troponin negative. Pro-BNP 62. Urinalysis cloudy, leukoesterase small, bacteria rare. Coronavirus PCR not detected. EKG was a sinus rhythm with prolonged QT. CAT scan of the brain revealed no acute findings. Chest x-ray discusses ET and enteric tube. Mild patchy opacities in the right lung apex, bilateral midlungs and left lung base. May represent infectious or inflammatory etiology. Patient was started on dextrose, clindamycin, propofol consult with trousseau consultant, oncology, neurology and nephrology 03/10: Patient remains intubated and on mechanical ventilation with tidal volume 450, FIO2 35%, PEEP 5. Patient is nodding his head to questions. He remains on Propofol and on Clindamycin and we will add Levaquin. Repeat CXR reveals patchy bilateral areas of subsegmental consolidation, stable. Repeat lab work reveals WBC 8.4, HGB 10.1, PLT 182. Sodium 139, potassium 4.8, chloride 111, CO2 21, BUN 19 creatinine 1.04, blood sugar 115. Liver function tests were normal. Urine and sputum cultures in progress. Patient has been seen and followed by int ensivist, nephrology and neurology. Neurology recommends holding gabapentin, tramadol, Wellbutrin and EEG ordered. REVIEW OF SYSTEMS Unable to obtain due to intubation and mechanical ventilation, mental status changes. PHYSICAL EXAMINATION Gen: This is a 50-year-old male. He is resting in the ICU bed, intubated and on mechanical ventilation HEENT: Head is atraumatic, normocephalic. Pupils equal, round. Sclerae is anicteric. Oral ETand gastric tube. NECK: Supple. No JVD. No lymphadenopathy. No thyromegaly. LUNGS: Clear to auscultation. No wheezes or rhonchi. No intercostal retractions. HEART: First heart sound is depressed, second heart sound is normal, there is a 2/6 systolic ejection murmur at the left sternal border. No S3 or S4, no JVP. ABDOMEN: Soft. Bowel sounds are present. No masses. No tenderness. Gayle cath eter draining clear stephen urine. EXTREMITIES: No pedal edema. Dorsalis pedis +2 bilaterally. NEUROLOGICAL: Patient is sedated. ASSESSMENT AND PLAN 1. Acute metabolic encephalopathy of unclear etiology requiring intubation. 2. Acute hypoxic respiratory failure requiring intubation and mechanical ventilation secondary to bilateral aspiration pneumonia. Consult with inte nsivist appreciated. Continue clindamycin and add Levaquin. 3. Acute kidney injury, acute tubular necrosis secondary to hypotension and hypoperfusion and use of ACEI with chronic kidney disease stage II. Consult with nephrology appreciated. 4. Hypotension and shock status post 5 L of IV fluid. 5. Hypertension. 6. History of prostate cancer under the care of Dr. Viveros. Consult with oncology. 7. Adrenal insufficiency. 8. Fibromyalgia. 9. Hyperlipidemia. 10. Herpes simplex infection. 11. GI prophylaxis. Protonix 40 mg IV daily. 12. DVT prophylaxis. Heparin 5000 units subcu 3 times daily. DISCHARGE PLAN TBD. Most likely return home without home care. Impression and plan of care have been directed as dictated by the signing physician. Jia Delgado nurse practitioner acting as scribe for signing physician. Objective - Vital Signs Vital signs: Vital Signs Temp 97.7 F 03/10/21 04:00 Pulse 52 L 03/10/21 07:24 Resp 20 03/10/21 07:00 BP 106/61 03/10/21 07:00 Pulse Ox 97 03/10/21 07:00 Intake & Output 03/09/21 03/10/21 03/10/21 18:59 06:59 18:59 Intake Total 3101.672 1767.850 130 Output Total 1160 1030 60 Balance 1941.672 737.850 70 Weight 96.9 kg Intake: IV 3010 1430 130 0.9 2910 1430 130 Clindamycin 600 mg In 100 Dextrose 5% in Water 50 ml @ 50 mls/hr IVPB Q8HR [facility] Rx#:[id number] Intake, IV Titration 91.672 337.850 Amount Norepinephrine 4 mg In 44.876 94.734 Sodium Chloride 0.9% 250 ml @ 0.05 MCG/KG/MIN 16. 418 mls/hr IV .[id number] [facility] Rx#:[id number] propofoL 1,000 mg In 46.796 243.116 Empty Bag 1 bag @ Titrate IV .Q0M [facility] Rx#: [id number] Output: Urine 1160 1030 60 Other: Voiding Method Indwelling Catheter Indwelling Catheter - Labs CBC & Chem 7: 03/10/21 04:13 03/10/21 04:13 Labs: Abnormal Lab Results - Last 24 Hours (Table) 03/09/21 03/09/21 03/09/21 Range/Units 05:13 18:33 23:34 RBC (4.30-5.90) m/uL Hgb (13.0-17.5) gm/dL Hct (39.0-53.0) % Neutrophils # (1.3-7.7) k/uL Lymphocytes # (1.0-4.8) k/uL ABG pO2 (83-108) mmHg ABG O2 Saturation (94-97) % Chloride (98-107) mmol/L Carbon Dioxide (22-30) mmol/L Glucose (74-99) mg/dL POC Glucose (mg/dL) 100 H 105 H (75-99) mg/dL Iron 26 L (65-175) ug/dL % Saturation 9.22 L (15.00-50.00) Total Bilirubin (0.2-1.3) mg/dL Total Protein (6.3-8.2) g/dL Albumin (3.5-5.0) g/dL Phenytoin <0.5 L (10.0-20.0) ug/mL Valproic Acid <3.0 L (50.0-100.0) ug/mL [place] <0.1 L (0.5-1.2) mmol/L 03/10/21 03/10/21 03/10/21 Range/Units 04:13 04:13 04:48 RBC 3.20 L (4.30-5.90) m/uL Hgb 10.1 L (13.0-17.5) gm/dL Hct 28.9 L (39.0-53.0) % Neutrophils # 7.8 H (1.3-7.7) k/uL Lymphocytes # 0.3 L (1.0-4.8) k/uL ABG pO2 140 H (83-108) mmHg ABG O2 Saturation 98.8 H (94-97) % Chloride 111 H (98-107) mmol/L Carbon Dioxide 21 L (22-30) mmol/L Glucose 115 H (74-99) mg/dL POC Glucose (mg/dL) (75-99) mg/dL Iron (65-175) ug/dL % Saturation (15.00-50.00) Total Bilirubin <0.1 L (0.2-1.3) mg/dL Total Protein 5.6 L (6.3-8.2) g/dL Albumin 3.2 L (3.5-5.0) g/dL Phenytoin (10.0-20.0) ug/mL Valproic Acid (50.0-100.0) ug/mL [place] (0.5-1.2) mmol/L Microbiology - Last 24 Hours (Table) 03/09/21 10:00 Gram Stain - Preliminary Sputum Sputum Culture - Preliminary 03/09/21 15:08 Urine Culture - Preliminary Urine,Catheterized
[2021-03-10] MEDS ORDERED: HALOPERIDOL LACTATE 5 MG/ML 1 ML VIAL IVP ONE (08:52)
[2021-03-10] MEDS ORDERED: DEXMEDETOMIDINE/0.9% NACL(PMX) 400 MCG in EMPTY BAG 1 BAG IV SCH (09:00)
[2021-03-10] MEDS: NOREPINEPHRINE 4 MG in SODIUM CHLORIDE 0.9% 250 ML IV SCH ×2 (09:05→23:39)
[2021-03-10] MEDS: HYDROCORTISONE SUCCINATE 100 MG/2 ML VIAL IV SCH ×2 (09:30→21:09)
[2021-03-10] MEDS: HEPARIN SODIUM,PORCINE/PF 5,000 UNIT/0.5 ML SYRINGE SQ SCH ×2 (10:04→16:28)
[2021-03-10] MEDS: CHLORHEXIDINE GLUCONATE 15 ML CUP MUCOUS MEM SCH (10:04)
[2021-03-10] MEDS: PANTOPRAZOLE 40 MG/10 ML VIAL IV SCH (10:05)
[2021-03-10 10:48] LABS: Carbamazepine (Tegretol) <0.2 ug/mL (4.0-12.0)
--- NOTE | 2021-03-10 12:55 | P.PN ---
Subjective Progress Note Date: 03/10/21 Principal diagnosis: Altered mental status, acute toxic metabolic encephalopathy and acute hypoxic respiratory failure, inability to protect his airways. This is a 50-year-old white male, known history of hypertension, fibromyalgia, adrenal insufficiency, herpes simplex infection, alcohol abuse, patient was brought in by EMS with unresponsiveness. Patient was found at the curb not acting properly, and having difficulty walking. Someone called EMS, and upon EMS arrival, patient was refusing transport however his mental status deteriorated and upon arrival to the ER patient became unconscious. And he required intubation in the ER. Blood pressure was noted to be low at the time 76/47. Patient was given dextrose and Narcan, but no improvement in his mental status initially. It was felt by the ER physician that the patient could not protect his airways, and he was having episodes of hypoxia and apnea. He was intubated and placed on mechanical ventilation. Computed tomography scan of the brain showed no acute change. X-ray showed nonspecific bilateral infiltrates. PCR for COVID-19 was negative and EKG showed sinus rhythm with prolonged QT intervals. Patient was admitted to the ICU post intubation, and I was asked to see him on consultation. Not much history could be obtained from the patient, patient is now sedated, and when propofol was weaned off, patient became extremely agitated but not appropriate. Hence had to be placed back on propofol. He is now on assist control rate of 20,000 volume 450 FiO2 40% PEEP of 5. ABG showed a pO2 of more than 400 pCO2 of 43 pH of 7.30. Hence his FiO2 was decreased down to 35%. Patient is on propofol at 20 mcg/kg/m, IV fluids 0.9 normal saline at 130 per hour. And I have recommended a fluid bolus of 1 L 0.9 normal saline to this patient at that his blood pressure was marginal. He added clindamycin since I'm suspecting some component of aspiration noted on the chest x-ray with bilateral infiltrates. Drug screen was negative serum alcohol was less than 10 ammonia level was less than 9. CPK however was elevated at 745, and I believe the patient may have fallen since he wasn't able to walk properly upon his initial evaluation by EMS. Patient was reevaluated today on 03/10/2021, remains in the ICU, intubated and mechanically ventilated. He is on assist control rate of 20,000 volume 450 FiO2 35% PEEP of 5. Remains on propofol at 20 mcg/kg/m IV fluid 0.9 normal saline at 75 mL per hour. Patient is not requiring any pressors. He was placed yesterday on stress doses of hydrocortisone, and that seemed to help his blood pressure significantly. Patient is arousable, although he is on propofol, seems to follow instructions, chest x-ray did show improvement in his bilateral infiltrates. Patient is wiggling his toes, closing and opening his eyes, squeezing hands, hence I have recommended that we discontinue propofol, will likely give the patient a weaning trial with pressure support of 8 and CPAP, and if tolerated may proceed to weaning and extubation. However I have recommended Precedex to be used in case the patient gets extremely agitated. Looking at the patient's list of medication, he seems to be on multiple medications that may actually contribute and affect his mental status. Including narcotics, antidepressants, and many other meds. These are presently on hold. ABG today showed a pO2 of 140 pCO2 of 39 pH of 7.35 CBC is relatively normal except for low hemoglobin of 10.1. Electrolytes are normal and renal profile is normal liver profile is normal. Objective - Vital Signs Vital signs: Vital Signs Temp 97.7 F 03/10/21 04:00 Pulse 52 L 03/10/21 07:24 Resp 20 03/10/21 07:00 BP 106/61 03/10/21 07:00 Pulse Ox 97 03/10/21 08:00 Intake & Output 03/09/21 03/10/21 03/10/21 18:59 06:59 18:59 Intake Total 3101.672 1767.850 260 Output Total 1160 1030 100 Balance 1941.672 737.850 160 Weight 96.9 kg Intake: IV 3010 1430 260 0.9 2910 1430 260 Clindamycin 600 mg In 100 Dextrose 5% in Water 50 ml @ 50 mls/hr IVPB Q8HR [facility] Rx#:[id number] Intake, IV Titration 91.672 337.850 Amount Norepinephrine 4 mg In 44.876 94.734 Sodium Chloride 0.9% 250 ml @ 0.05 MCG/KG/MIN 16. 418 mls/hr IV .[id number] [facility] Rx#:[id number] propofoL 1,000 mg In 46.796 243.116 Empty Bag 1 bag @ Titrate IV .Q0M [facility] Rx#: [id number] Output: Urine 1160 1030 100 Other: Voiding Method Indwelling Catheter Indwelling Catheter Indwelling Catheter - Exam Physical Exam revealed 50-year-old male , in no distress. Arousable in spite of propofol. Head: Atraumatic, normocephalic, endotracheal tube and orogastric tube is i ntact. HEENT:[PERRLA, EOMI, nonicteric, moist mucous membranes. Chest: [Symmetrical chest expansion. Clear throughout.] Cardiac Exam: [Normal S1 and S2, no S3 gallop, 2/6 systolic murmur thought the precordium. Abdomen: [Soft, nontender, no megaly, no rebound, no guarding, normal bowel sounds.] Extremities: [No clubbing, no edema, no cyanosis.] Musculoskeletal: No deformities, no limitation in range of motion, patient seems to follow instructions. Neurological Exam: Following simple instructions in spite of being on propofol..Arousable Psychiatric: Depressed mood, blunt affect, follows instructions. - Labs CBC & Chem 7: 03/10/21 04:13 03/10/21 04:13 Labs: Abnormal Lab Results - Last 24 Hours (Table) 03/09/21 03/09/21 03/09/21 Range/Units 05:13 05:13 18:33 RBC (4.30-5.90) m/uL Hgb (13.0-17.5) gm/dL Hct (39.0-53.0) % Neutrophils # (1.3-7.7) k/uL Lymphocytes # (1.0-4.8) k/uL ABG pO2 (83-108) mmHg ABG O2 Saturation (94-97) % Chloride (98-107) mmol/L Carbon Dioxide (22-30) mmol/L Glucose (74-99) mg/dL POC Glucose (mg/dL) 100 H (75-99) mg/dL Total Bilirubin (0.2-1.3) mg/dL Total Protein (6.3-8.2) g/dL Albumin (3.5-5.0) g/dL Vitamin C 21 H (2-19) mg/L Carbamazepine <0.2 L (4.0-12.0) ug/mL 03/09/21 03/10/21 03/10/21 Range/Units 23:34 04:13 04:13 RBC 3.20 L (4.30-5.90) m/uL Hgb 10.1 L (13.0-17.5) gm/dL Hct 28.9 L (39.0-53.0) % Neutrophils # 7.8 H (1.3-7.7) k/uL Lymphocytes # 0.3 L (1.0-4.8) k/uL ABG pO2 (83-108) mmHg ABG O2 Saturation (94-97) % Chloride 111 H (98-107) mmol/L Carbon Dioxide 21 L (22-30) mmol/L Glucose 115 H (74-99) mg/dL POC Glucose (mg/dL) 105 H (75-99) mg/dL Total Bilirubin <0.1 L (0.2-1.3) mg/dL Total Protein 5.6 L (6.3-8.2) g/dL Albumin 3.2 L (3.5-5.0) g/dL Vitamin C (2-19) mg/L Carbamazepine (4.0-12.0) ug/mL 03/10/21 Range/Units 04:48 RBC (4.30-5.90) m/uL Hgb (13.0-17.5) gm/dL Hct (39.0-53.0) % Neutrophils # (1.3-7.7) k/uL Lymphocytes # (1.0-4.8) k/uL ABG pO2 140 H (83-108) mmHg ABG O2 Saturation 98.8 H (94-97) % Chloride (98-107) mmol/L Carbon Dioxide (22-30) mmol/L Glucose (74-99) mg/dL POC Glucose (mg/dL) (75-99) mg/dL Total Bilirubin (0.2-1.3) mg/dL Total Protein (6.3-8.2) g/dL Albumin (3.5-5.0) g/dL Vitamin C (2-19) mg/L Carbamazepine (4.0-12.0) ug/mL Microbiology - Last 24 Hours (Table) 03/09/21 09:54 Blood Culture - Preliminary Blood No Growth after 24 hours 03/09/21 09:50 Blood Culture - Preliminary Blood No Growth after 24 hours 03/09/21 10:00 Gram Stain - Preliminary Sputum Sputum Culture - Preliminary 03/09/21 15:08 Urine Culture - Preliminary Urine,Catheterized Assessment and Plan Assessment: Impression: Altered mental status, acute toxic metabolic encephalopathy, exact etiology is unclear. Acute hypoxic respiratory failure and inability to protect airway secondary to above. Requiring intubation and mechanical ventilation Acute kidney injury with history of chronic kidney disease stage II Hypovolemic hypotension requiring 5 L of IV fluids on arrival, sepsis is possible but felt to be less likely. Cultures are pending. Acute aspiration pneumonia is strongly suspected. History of prostate cancer. History of adrenal insufficiency, patient responded well to high doses of hydrocortisone, we will go back to 50 mg IV push every 8 hours. Fibromyalgia. History of alcoholism noted in the chart. Patient may require Precedex post extubation if done today. History of herpes simplex infection. Recommendation: Continue ventilatory support. However will try the patient to go on a weaning trial using pressure support and CPAP, and if tolerated may extubate the patient. Continue antibiotics empirically/clindamycin for presumptive aspiration pneumonia. Cut down hydrocortisone to 50 mg IV push every 8 hours. Continue IV fluids. GI and DVT prophylaxis, patient is on subcu heparin 5000 units subcu 3 times daily. EEG is pending it is to be done sometime today. Nutritional support/enteral feeding. However the patient is extubated, will advance diet as tolerated. Daily assessment of labs and chest x-ray. Patient remains quite ill, and critical care time is over 30 minutes. Doses remains relatively guarded. Time with Patient: Greater than 30
[2021-03-10] MEDS ORDERED: HALOPERIDOL LACTATE 5 MG/ML 1 ML VIAL ONE ×2 (13:58→14:06)
[2021-03-10] MEDS ORDERED: LORazepam 2 MG/ML INJ ONE (14:07)
[2021-03-10] MEDS: LEVOFLOXACIN 500MG-D5W PMX 500 MG in DEXTROSE/WATER 1 100ML.BAG IVPB SCH (14:29)
[2021-03-10] MEDS: CLINDAMYCIN 600 MG in DEXTROSE 5% IN WATER 50 ML IVPB SCH ×4 (14:29→21:10)
--- NOTE | 2021-03-10 15:16 | PN ---
PROGRESS NOTE Patient is seen for followup for acute kidney injury, mostly prerenal, currently improved. The patient was extubated this morning. I have discussed with nursing staff. It appears that the patient has been very agitated and belligerent. He is currently in four-point restraints. He has just received Haldol. He does have history of EtOH abuse. There is concern for possible DTs. PHYSICAL EXAMINATION: On examination, the patient's vital signs are reviewed. Blood pressure 133/79, heart rate 91 per minute. He is afebrile. O2 saturations 97% on 2 L nasal cannula. The patient appears euvolemic. He is not actually examined. He is moving all 4 extremities. Remains belligerent and agitated. LAB: Show sodium 139, potassium 4.8, chloride 111, CO2 is 21, BUN 19, creatinine 1.04 hemoglobin 10.1 g/dL. ASSESSMENT: 1. Acute kidney injury secondary to hypotension, hypoperfusion and volume depletion, currently improved significantly. Renal function close to baseline. 2. History of prostate cancer, locally confined. 3. Hypovolemic hyponatremia, improved. 4. Acute hypoxic respiratory failure, currently extubated. PLAN: Continue with IV fluids. Encourage increased oral intake if the patient takes his IV out. Monitor electrolytes. Repeat labs in a.m. Avoid hypotension. MMODL / IJN: [id number] /
[2021-03-10 18:09] LABS: Glucose,Whole Blood 108 mg/dL (75-99)
[2021-03-10 19:17] LABS: Vitamin D, 1, 25-Dihydroxy 35 pg/mL (20 - 79)
[2021-03-10] MEDS ORDERED: LORazepam 2 MG/ML INJ IV PRN ×2 (23:41)
[2021-03-10] MEDS ORDERED: THIAMINE 100 MG/ML 2 ML VIAL IM STA (23:41)
[2021-03-11] MEDS: THIAMINE 100 MG TAB PO SCH ×3 (00:07→17:31)
[2021-03-11] MEDS: LORazepam 2 MG/ML INJ IV PRN ×2 (00:10→02:44)
[2021-03-11] MEDS: HEPARIN SODIUM,PORCINE/PF 5,000 UNIT/0.5 ML SYRINGE SQ SCH ×4 (00:18→23:10)
[2021-03-11 04:48] LABS: African American GFR (CKD) >90 (>60 ml/min/1.73 sqM); Anion Gap 8 mmol/L; Blood Urea Nitrogen 24 mg/dL (9-20); Carbon Dioxide 21 mmol/L (22-30); Chloride 113 mmol/L (98-107); Glucose 112 mg/dL (74-99); Non-African American GFR(CKD) >90 (>60 ml/min/1.73 sqM); Sodium 142 mmol/L (137-145)
[2021-03-11] MEDS: CLINDAMYCIN 600 MG in DEXTROSE 5% IN WATER 50 ML IVPB SCH ×6 (05:22→21:28)
[2021-03-11] MEDS: SODIUM CHLORIDE 0.9% 1,000 ML IV SCH ×3 (05:22→18:00)
[2021-03-11 06:19] LABS: Vitamin A 40 ug/dL (38-106); Vitamin E (Alpha Tocopherol) 986 ug/dL (500-1800)
--- NOTE | 2021-03-11 08:07 | XR ---
EXAMINATION TYPE: XR chest 1V portable DATE OF EXAM: 03/11/2021 COMPARISON: 03/10/2021 HISTORY: Tube placement TECHNIQUE: Single frontal view of the chest is obtained. FINDINGS: ET and NG tube have been removed. There is a diffuse interstitial pattern. No sizable pneu mothorax. No sizable pleural effusion or consolidation. Heart size prominent but stable. IMPRESSION: ET and NG tube removal with coarsened interstitium correlate for mild venous congestion or interstitial pneumonitis.
[2021-03-11] MEDS: PANTOPRAZOLE 40 MG/10 ML VIAL IV SCH (08:28)
[2021-03-11] MEDS: LEVOFLOXACIN 500MG-D5W PMX 500 MG in DEXTROSE/WATER 1 100ML.BAG IVPB SCH (08:29)
[2021-03-11] MEDS: HYDROCORTISONE SUCCINATE 100 MG/2 ML VIAL IV SCH (08:29)
--- NOTE | 2021-03-11 10:24 | P.PN ---
Subjective Progress Note Date: 03/11/21 HISTORY OF PRESENT ILLNESS This is a 50-year-old male patient of with past medical history of essential hypertension, prostate cancer, fibromyalgia, hyperlipidemia, insomnia, adrenal insufficiency, herpes simplex infection, alcohol abuse, remote history of tobacco use. Patient apparently was brought in by EMS for unresponsiveness. Patient was found outside sitting on the curb not acting appropriately and having difficulty walking. Patient initially refused transport by EMS but was brought in and subsequently lost consciousness and worsening symptoms. He was found to be afebrile, heart rate 93, respiratory rate 16, initial blood pressure 76/47, pulse ox 95%. Glucose and Narcan were given without improvement of his mental status. Patient did require intubation secondary to inability to protect airway and episodes of hypoxia and apnea. WBCs 13.8, hemoglobin 10.6, platelet count 196. Sodium 134, potassium 4.0, chloride 101, CO2 19, BUN 27 creatinine 2.74, blood sugar 100. INR 1.0. Phosphorus 4.5, magnesium 2.1, liver function tests were normal. CK 745. TSH 1.120. Albumin 4.3. Ammonia level less than 9, salicylate level less than 1, acetaminophen level less than 10. Urine drug screen was negative. Wound Serum alcohol level less than 10. Lactic acid 1.2. Troponin negative. Pro-BNP 62. Urinalysis cloudy, leukoesterase small, bacteria rare. Coronavirus PCR not detected. EKG was a sinus rhythm with prolonged QT. CAT scan of the brain revealed no acute findings. Chest x-ray discusses ET and enteric tube. Mild patchy opacities in the right lung apex, bilateral midlungs and left lung base. May represent infectious or inflammatory etiology. Patient was started on dextrose, clindamycin, propofol consult with farmworker bulbs, oncology, neurology and nephrology 03/10: Patient remains intubated and on mechanical ventilation with tidal volume 450, FIO2 35%, PEEP 5. Patient is nodding his head to questions. He remains on Propofol and on Clindamycin and we will add Levaquin. Repeat CXR reveals patchy bilateral areas of subsegmental consolidation, stable. Repeat lab work reveals WBC 8.4, HGB 10.1, PLT 182. Sodium 139, potassium 4.8, chloride 111, CO2 21, BUN 19 creatinine 1.04, blood sugar 115. Liver function tests were normal. Urine and sputum cultures in progress. Patient has been seen and followed by int ensivist, nephrology and neurology. Neurology recommends holding gabapentin, tramadol, Wellbutrin and EEG ordered. 03/11: Patient has been successfully extubated but remains in intensive care unit with significant mental status changes. He is very confused. He has required soft restraints. Gayle catheter to be removed today. He was unable to undergo EEG yesterday which is rescheduled for today. Patient has been afebrile, heart rate 54, blood pressure 147/115, pulse ox 95% on room air. Sodium 142, potassium 4.0, chloride 113, CO2 21, BUN 24 and creatinine 0.93. Blood sugars running 108 215. Gabapentin came back at normal range of 5.2. Chest x-ray reveals coarse interstitium correlate for mild congestive or interstitial pneumonitis. IV fluids are continued but will be decreased to 100 mL per hour REVIEW OF SYSTEMS Unable to obtain due to mental status changes. PHYSICAL EXAMINATION Gen: This is a 50-year-old male. He is resting in the ICU bed, soft restraints in place, no respiratory distress noted. HEENT: Head is atraumatic, normocephalic. Pupils equal, round. Sclerae is anicteric. NECK: Supple. No JVD. No lymphadenopathy. No thyromegaly. LUNGS: Clear to auscultation. No wheezes or rhonchi. No intercostal retractions. HEART: First heart sound is depressed, second heart sound is normal, there is a 2/6 systolic ejection murmur at the left sternal border. No S3 or S4, no JVP. ABDOMEN: Soft. Bowel sounds are present. No masses. No tenderness. Gayle catheter draining clear stephen urine. EXTREMITIES: No pedal edema. Dorsalis pedis +2 bilaterally. NEUROLOGICAL: Patient is sedated, slow to respond, speech slurred. ASSESSMENT AND PLAN 1. Acute metabolic encephalopathy of unclear etiology requiring intubation. Patient has been successfully extubated. 2. Acute hypoxic respiratory failure requiring intubation and mechanical ventilation secondary to bilateral aspiration pneumonia, successfully extubataed. Consult with farmworker bulbs appreciated. Continue clindamycin and Levaquin. 3. Acute kidney injury, acute tubular necrosis secondary to hypotension and hypoperfusion and use of ACEI with chronic kidney disease stage II. Consult with nephrology appreciated. Continue IV fluids but decrease to 100 mL per hour. 4. Hypotension and shock status post 5 L of IV fluid. 5. Hypertension. 6. History of prostate cancer under the care of Dr. Viveros. Consult with oncology. 7. Adrenal insufficiency. 8. Fibromyalgia. 9. Hyperlipidemia. 10. Herpes simplex infection. 11. GI prophylaxis. Protonix 40 mg IV daily. 12. DVT prophylaxis. Heparin 5000 units subcu 3 times daily. DISCHARGE PLAN TBD. Most likely return home without home care. Impression and plan of care have been directed as dictated by the signing physician. Jia Delgado nurse practitioner acting as scribe for signing physician. Objective - Vital Signs Vital signs: Vital Signs Temp 97.9 F 03/11/21 04:00 Pulse 54 L 03/11/21 07:00 Resp 13 03/11/21 07:00 BP 147/115 03/11/21 07:00 Pulse Ox 95 03/11/21 07:00 Intake & Output 03/10/21 03/11/21 03/11/21 18:59 06:59 18:59 Intake Total 1010 950 75 Output Total 660 615 50 Balance 350 335 25 Weight 96.5 kg Intake: IV 1010 900 75 0.9 1010 900 75 Intake, IV Titration 50 Amount Clindamycin 600 mg In 50 Dextrose 5% in Water 50 ml @ 50 mls/hr IVPB Q8H [facility] Rx#:[id number] Output: Urine 660 615 50 Other: Voiding Method Indwelling Catheter Indwelling Catheter - Labs CBC & Chem 7: 03/10/21 04:13 03/11/21 04:03 Labs: Abnormal Lab Results - Last 24 Hours (Table) 03/09/21 03/09/21 03/10/21 Range/Units 05:13 05:13 18:08 Chloride (98-107) mmol/L Carbon Dioxide (22-30) mmol/L BUN (9-20) mg/dL Glucose (74-99) mg/dL POC Glucose (mg/dL) 108 H (75-99) mg/dL Vitamin C 21 H (2-19) mg/L Carbamazepine <0.2 L (4.0-12.0) ug/mL 03/11/21 Range/Units 04:03 Chloride 113 H (98-107) mmol/L Carbon Dioxide 21 L (22-30) mmol/L BUN 24 H (9-20) mg/dL Glucose 112 H (74-99) mg/dL POC Glucose (mg/dL) (75-99) mg/dL Vitamin C (2-19) mg/L Carbamazepine (4.0-12.0) ug/mL Microbiology - Last 24 Hours (Table) 03/09/21 15:08 Urine Culture - Final Urine,Catheterized 03/09/21 09:54 Blood Culture - Preliminary Blood No Growth after 24 hours 03/09/21 09:50 Blood Culture - Preliminary Blood No Growth after 24 hours
[2021-03-11 11:30] LABS: Basophils % (A) 0 %; Eosinophils # (A) 0.1 k/uL (0-0.7); Eosinophils % (A) 1 %; HCT 29.7 % (39.0-53.0); HGB 10.1 gm/dL (13.0-17.5); Lymphocytes # (A) 0.5 k/uL (1.0-4.8); Lymphocytes % (A) 7 %; MCH 31.3 pg (25.0-35.0); MCV 92.1 fL (80.0-100.0); Mean Platelet Volume 9.3; Monocytes # (A) 0.3 k/uL (0-1.0); Monocytes % (A) 4 %; Neutrophils # (A) 6.9 k/uL (1.3-7.7); Neutrophils % (A) 88 %; Platelet Count 182 k/uL (150-450); RBC 3.23 m/uL (4.30-5.90); RDW 14.3 % (11.5-15.5); WBC 7.8 k/uL (3.8-10.6)
--- NOTE | 2021-03-11 13:28 | EEG ---
ELECTROENCEPHALOGRAM REPORT DATE OF SERVICE: 03/11/2021 PREAMBLE: This is a 50-year-old male who was found on the side of the road, confused and combative. The patient became unresponsive and was intubated. Post extubation, he became extremely violent and aggressive. This study is performed to evaluate for any epileptiform activity. EEG FINDINGS: This is a 21 channel routine EEG recording utilizing 10/20 international system with referential and bipolar montages. The recording starts with patient being probably asleep with presence of diffuse moderate mixed high amplitude and delta with some theta activity. Some sleep spindles and vertex waves were seen. During middle part of the study, patient did wake up when he was noted to be talking, during which excessive low- voltage fast frequency beta intermixed with some alpha activity was seen. Intermittent periods of generalized high-amplitude delta activity was also seen briefly. No focal or generalized epileptiform discharges were seen. Photic stimulation and hyperventilation were not performed. The EKG channel showed no arrhythmia. IMPRESSION: An abnormal EEG due to intermittent background slowing with some mixed fast frequency activity. This is suggestive of generalized cerebral dysfunction as can be seen from metabolic encephalopathy, or from medication effect. No epileptiform activity was seen. MMODL / IJN: [id number] /
[2021-03-11 13:34] LABS: Glucose,Whole Blood 108 mg/dL (75-99)
[2021-03-11] MEDS: DEXMEDETOMIDINE/0.9% NACL(PMX) 400 MCG in EMPTY BAG 1 BAG IV SCH ×2 (13:35→20:47)
[2021-03-11] MEDS ORDERED: haloperidoL 1 MG TAB PO PRN (13:39)
[2021-03-11] MEDS ORDERED: HALOPERIDOL LACTATE 5 MG/ML 1 ML VIAL IM PRN (13:39)
--- NOTE | 2021-03-11 13:40 | P.PN ---
Subjective Progress Note Date: 03/11/21 Principal diagnosis: Altered mental status, acute toxic metabolic encephalopathy and acute hypoxic respiratory failure, inability to protect his airways. This is a 50-year-old white male, known history of hypertension, fibromyalgia, adrenal insufficiency, herpes simplex infection, alcohol abuse, patient was brought in by EMS with unresponsiveness. Patient was found at the curb not acting properly, and having difficulty walking. Someone called EMS, and upon EMS arrival, patient was refusing transport however his mental status deteriorated and upon arrival to the ER patient became unconscious. And he required intubation in the ER. Blood pressure was noted to be low at the time 76/47. Patient was given dextrose and Narcan, but no improvement in his mental status initially. It was felt by the ER physician that the patient could not protect his airways, and he was having episodes of hypoxia and apnea. He was intubated and placed on mechanical ventilation. Computed tomography scan of the brain showed no acute change. X-ray showed nonspecific bilateral infiltrates. PCR for COVID-19 was negative and EKG showed sinus rhythm with prolonged QT intervals. Patient was admitted to the ICU post intubation, and I was asked to see him on consultation. Not much history could be obtained from the patient, patient is now sedated, and when propofol was weaned off, patient became extremely agitated but not appropriate. Hence had to be placed back on propofol. He is now on assist control rate of 20,000 volume 450 FiO2 40% PEEP of 5. ABG showed a pO2 of more than 400 pCO2 of 43 pH of 7.30. Hence his FiO2 was decreased down to 35%. Patient is on propofol at 20 mcg/kg/m, IV fluids 0.9 normal saline at 130 per hour. And I have recommended a fluid bolus of 1 L 0.9 normal saline to this patient at that his blood pressure was marginal. He added clindamycin since I'm suspecting some component of aspiration noted on the chest x-ray with bilateral infiltrates. Drug screen was negative serum alcohol was less than 10 ammonia level was less than 9. CPK however was elevated at 745, and I believe the patient may have fallen since he wasn't able to walk properly upon his initial evaluation by EMS. Patient was reevaluated today on 03/10/2021, remains in the ICU, intubated and mechanically ventilated. He is on assist control rate of 20,000 volume 450 FiO2 35% PEEP of 5. Remains on propofol at 20 mcg/kg/m IV fluid 0.9 normal saline at 75 mL per hour. Patient is not requiring any pressors. He was placed yesterday on stress doses of hydrocortisone, and that seemed to help his blood pressure significantly. Patient is arousable, although he is on propofol, seems to follow instructions, chest x-ray did show improvement in his bilateral infiltrates. Patient is wiggling his toes, closing and opening his eyes, squeezing hands, hence I have recommended that we discontinue propofol, will likely give the patient a weaning trial with pressure support of 8 and CPAP, and if tolerated may proceed to weaning and extubation. However I have recommended Precedex to be used in case the patient gets extremely agitated. Looking at the patient's list of medication, he seems to be on multiple medications that may actually contribute and affect his mental status. Including narcotics, antidepressants, and many other meds. These are presently on hold. ABG today showed a pO2 of 140 pCO2 of 39 pH of 7.35 CBC is relatively normal except for low hemoglobin of 10.1. Electrolytes are normal and renal profile is normal liver profile is normal. Patient was reevaluated today on 03/11/2021, patient was successfully extubated yesterday, however he remains confused, and intermittently agitated, required soft restraints in addition to multiple metastases to keep him calm including Precedex, Ativan, and Haldol. During my evaluation, the patient was noted to be calm, and not in any distress. CBC is relatively normal. Electrolytes are normal. Sugar is 108. Renal profile is normal. EEG is suggestive of generalized cerebral dysfunction correlating with his clinical presentation of metabolic encephalopathy no evidence of epileptiform activity. Chest x-ray showed bilateral coarse interstitium otherwise unremarkable. Objective - Vital Signs Vital signs: Vital Signs Temp 97.9 F 03/11/21 04:00 Pulse 59 L 03/11/21 10:00 Resp 16 03/11/21 10:00 BP 123/86 03/11/21 10:00 Pulse Ox 93 L 03/11/21 10:00 Intake & Output 03/10/21 03/11/21 03/11/21 18:59 06:59 18:59 Intake Total 1010 950 605 Output Total 660 615 125 Balance 350 335 480 Weight 96.5 kg Intake: IV 1010 900 405 0.9 1010 900 405 Intake, IV Titration 50 Amount Clindamycin 600 mg In 50 Dextrose 5% in Water 50 ml @ 50 mls/hr IVPB Q8H [facility] Rx#:[id number] Oral 200 Output: Urine 660 615 125 Other: Voiding Method Indwelling Catheter Indwelling Catheter - Exam Physical Exam revealed 50-year-old male , in no distress. Calm, arousable, but gets agitated easily. Head: Atraumatic, normocephalic HEENT:[PERRLA, EOMI, nonicteric, moist mucous membranes. Chest: [Symmetrical chest expansion. Clear throughout.] Cardiac Exam: [Normal S1 and S2, no S3 gallop, 2/6 systolic murmur thought the precordium. Abdomen: [Soft, nontender, no megaly, no rebound, no guarding, normal bowel sounds.] Extremities: [No clubbing, no edema, no cyanosis.] Musculoskeletal: No deformities, no limitation in range of motion Neurological Exam: Calm, arousable, gets agitated easily. Psychiatric: Depressed mood, blunt affect, not assess mental status. - Labs CBC & Chem 7: 03/11/21 04:03 03/11/21 04:03 Labs: Abnormal Lab Results - Last 24 Hours (Table) 03/10/21 03/11/21 03/11/21 Range/Units 18:08 04:03 04:03 RBC 3.23 L (4.30-5.90) m/uL Hgb 10.1 L (13.0-17.5) gm/dL Hct 29.7 L (39.0-53.0) % Lymphocytes # 0.5 L (1.0-4.8) k/uL Chloride 113 H (98-107) mmol/L Carbon Dioxide 21 L (22-30) mmol/L BUN 24 H (9-20) mg/dL Glucose 112 H (74-99) mg/dL POC Glucose (mg/dL) 108 H (75-99) mg/dL Microbiology - Last 24 Hours (Table) 03/09/21 09:54 Blood Culture - Preliminary Blood No Growth after 48 hours 03/09/21 09:50 Blood Culture - Preliminary Blood No Growth after 48 hours 03/09/21 10:00 Gram Stain - Final Sputum Sputum Culture - Preliminary 06/01/21 15:08 Urine Culture - Final Urine,Catheterized Assessment and Plan Assessment: Impression: Altered mental status, acute toxic metabolic encephalopathy, exact etiology is unclear. Acute hypoxic respiratory failure and inability to protect airway secondary to above. Requiring intubation and mechanical ventilation, patient was extubated on 03/10/2021. Acute kidney injury with history of chronic kidney disease stage II Hypovolemic hypotension requiring 5 L of IV fluids on arrival, sepsis is possible but felt to be less likely. Cultures are pending. Acute aspiration pneumonia suspected. History of prostate cancer. History of adrenal insufficiency, initially placed on hydrocortisone, however will discontinue hydrocortisone this a.m. Fibromyalgia. History of alcoholism, on CIWA protocol. History of herpes simplex infection. Recommendation: Continue antibiotics. Discontinue hydrocortisone. Continue CIWA protocol. Psychiatric consultation. Continue GI and DVT prophylaxis. Continue IV fluids. Continue to monitor in ICU. EEG report was reviewed. We'll continue to follow. Prognosis remains guarded considering his presentation and considering that he remains agitated easily. Time with Patient: Less than 30
--- NOTE | 2021-03-11 13:53 | P.CN ---
Psychiatric Consult - . Consult date: 03/11/21 Consult:: 03/11/21 13:43 IDENTIFYING DATA: This patient is a 50-year-old male who is currently staying in a motel for the last 3 years apparently, is single has no kids and is unemployed. REASON FOR REFERRAL: Psychiatry was consulted for AMS, psych issues HISTORY OF PRESENT ILLNESS: The patient presented to the hospital on 03/09 due to unresponsiveness. Patient was apparently found wandering on the side of the road by EMS. Patient was a poor historian in the ER. He became hypoxic and was intubated and transferred to the ICU. Patient always also found to have a acute kidney injury and also UDS was negative and blood alcohol level was negative. Patient was extubated on 03/11 and was confused and needed restraints afterwards. Patients nurse claims that patient has been sleepy but arousable this morning and for the most part has been fairly appropriate. Patient was seen by play writer at the bedside and was awoken from sleep. He kept his eyes closed for the duration of the interview and appeared to be fairly lethargic. She was alert and oriented 2 however did not know today's date and believe that it was February 28. He does know the current president. He was not able to spell "world" backwards. He claims that he was not using drugs however states that he left the hotel and wanted to smoke a cigarette and sat down at the side of the road and states that he was trying to cross the road to go to a gas station to get fo od and other supplies however did not make it. He was perseverating on this story several times during the interview and was tangential and had loose associations at times. He appeared to have poor dentition and poor oral hygiene. At this time patient denies any suicidal or homical ideations, intent or plan. Patient denies any auditory, visual hallucinations and denies any paranoia or delusions. Patients admits to using cigarettes daily and claims that he smokes marijuana occasionally. He denies any other recreational drug use. PAST PSYCHIATRIC HISTORY: Patient claims that he does not have a psychiatric history or diagnosis. Patient denies being on any psychiatric medications. Patient denies any previous psychiatric hospitalizations. Patient denies any psychiatric outpatient follow-up. Patient denies any history of suicide attempts in the past. PAST MEDICAL HISTORY: Hypertension, prostate cancer, fibromyalgia, hyperlipidemia. ALLERGIES: as per EMR. CHEMICAL DEPENDENCY HISTORY: as per HPI. FAMILY PSYCHIATRIC/SUBSTANCE USE HISTORY: States that his sister has schizophrenia SOCIAL HISTORY: Patient was born and raised in [place] [facility]. He claims that he completed high school and also a chiropractor college. 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 He is currently unemployed single has no kids. He currently stays in a motel. He claims that he does have a legal history of being imprisoned however claims he does not want to talk about it. MENTAL STATUS EXAM: General Appearance: Patient appears to be stated age is lethargic, eyes closed however attempts to cooperate. Patient appears to have poor hygiene and grooming wearing hospital gown with poor eye contact. Behavior: Patient is calmly lying in bed without any agitated behavior. Speech: Patient's speech is fluent and nonpressured. Perseverates and rambles Mood/Affect: Patient reports their mood is "ok", affect is congruent Suicidality/Homicidality: Patient denies having any suicidal or homicidal ideation intent or plan. Perceptions: Patient denies any visual hallucinations and denies any auditory hallucinations Though content/process: Patient is tangential/circumstantial, rambles. Perseverates on his story. Memory and concentration: AOX2, does not know what today's date is, cannot spell "WORLD" backwards Judgment and insight: poor IMPRESSIONS: Delirium likely due to toxic metabolic versus drugs/medications History of opioid dependence Cannabis use disorder mild Nicotine dependence PLAN: -At this time patient DOES NOT meet criteria for inpatient psychiatric admission. -Delirium precautions recommended with patient including - avoiding use of narcotics and FORESTRY TECHNICAL OFFICER sedatives, limit anticholinergic medications when possible, frequent re-orientation, minimize use of restraints, open window shades during the day and close them at night -Would recommend the following medication changes/additions: Please avoid giving patient any sedatives including benzos and barbiturates or opiates as this may increase patient's confusion/delirium. Added Haldol 3 mg every 6 hours when necessary for agitation. Patient should improve with treatment of underlying medical problems. -psychiatric social worker supervisor to provide patient with outpatient mental health/psychiatry resources for appropriate follow up upon discharge -Mixing Plant Dumper spoke with patient about substance abuse and the harmful effects on medical and mental health, patient verbally understood and agreed. -psychiatric social worker supervisor to provide patient substance use treatment resources including AA/NA meetings in the community. -Communicated plan to patient's nurse -Psychiatry will sign off at this time -Please contact with any questions.
--- NOTE | 2021-03-11 14:42 | PN ---
PROGRESS NOTE Patient is seen for followup for acute kidney injury. His renal function has currently improved. The patient was maintained on IV fluids. He was extubated yesterday but was significantly confused and belligerent. He is much more calm today but remains confused. The patient is maintained on IV fluids, saline at 100 mL an hour. His creatinine is down to 0.9 mg/dL. PHYSICAL EXAMINATION: On examination today, blood pressure 123/86, heart rate 59 per minute. Patient is afebrile. Examination of the heart S1, S2. Examination of the lungs, bilateral breath sounds are heard. Abdomen is soft, nontender. Examination of lower extremities shows no evidence of edema. ALLOCATION ANALYST exam shows patient is confused. He is moving all 4 extremities. LAB: Show hemoglobin 10.1 sodium 142, potassium 4.0, chloride 113, BUN 24, creatinine 0.9. ASSESSMENT: 1. Acute kidney injury, prerenal and secondary to hypoperfusion, currently resolved. 2. Prostate cancer, locally confined. 3. Hypovolemic hyponatremia, improved. 4. Acute hypoxic respiratory failure, currently improved. Patient is extubated. 5. Mental status changes, most likely DTs, somewhat improved today. PLAN: Continue with IV hydration until patient is eating. MMODL / IJN: [id number] /
[2021-03-11] MEDS: NOREPINEPHRINE 4 MG in SODIUM CHLORIDE 0.9% 250 ML IV SCH (17:25)
[2021-03-11] MEDS: hydrALAZINE HCL 25 MG TAB PO SCH ×2 (17:31→23:09)
--- NOTE | 2021-03-11 22:04 | P.PN ---
Subjective Progress Note Date: 03/11/21 Patient was seen for a follow-up. Patient now has been extubated since yesterday. However patient has developed delirium, with severe agitation, fluctuating mental status, restlessness. He is now in restraint. No seizures reported. Sitter was present, who states the patient has been somnolent and the n becomes very alert and restless and becomes aggressive. Objective - Vital Signs Vital signs: Vital Signs Temp 98.6 F 03/11/21 16:00 Pulse 57 L 03/11/21 17:00 Resp 13 03/11/21 17:00 BP 171/106 03/11/21 17:00 Pulse Ox 95 03/11/21 17:00 Intake & Output 03/10/21 03/11/21 03/11/21 18:59 06:59 18:59 Intake Total 2901 248 9614 Output Total 660 615 125 Balance 456 087 3729 Weight 96.5 kg Intake: IV 5648 461 0303 0.9 1010 900 905 Clindamycin 600 mg In 100 Dextrose 5% in Water 50 ml @ 50 mls/hr IVPB Q8HR [facility] Rx#:[id number] Intake, IV Titration 50 Amount Clindamycin 600 mg In 50 Dextrose 5% in Water 50 ml @ 50 mls/hr IVPB Q8H [facility] Rx#:[id number] Oral 200 Output: Urine 660 615 125 Other: Voiding Method Indwelling Catheter Indwelling Catheter - Exam On examination patient is a middle aged male, who is sedated at this time. He is in restraints. Patient does try to open his eyes, and follows some commands. Pupils are round and reacting, extraocular muscles are intact. Oculocephalics present. Face is symmetric. Patient moves his arms and legs equally. Reflexes are symmetric and plantars are downgoing bilaterally. Tone and bulk of muscles is normal. - Labs CBC & Chem 7: 03/11/21 04:03 03/11/21 04:03 Labs: Abnormal Lab Results - Last 24 Hours (Table) 03/11/21 03/11/21 03/11/21 Range/Units 04:03 04:03 13:32 RBC 3.23 L (4.30-5.90) m/uL Hgb 10.1 L (13.0-17.5) gm/dL Hct 29.7 L (39.0-53.0) % Lymphocytes # 0.5 L (1.0-4.8) k/uL Chloride 113 H (98-107) mmol/L Carbon Dioxide 21 L (22-30) mmol/L BUN 24 H (9-20) mg/dL Glucose 112 H (74-99) mg/dL POC Glucose (mg/dL) 108 H (75-99) mg/dL Microbiology - Last 24 Hours (Table) 03/09/21 09:54 Blood Culture - Preliminary Blood No Growth after 48 hours 03/09/21 09:50 Blood Culture - Preliminary Blood No Growth after 48 hours 03/09/21 10:00 Gram Stain - Final Sputum Sputum Culture - Preliminary 03/09/21 15:08 Urine Culture - Final Urine,Catheterized Assessment and Plan Assessment: * Acute delirium, likely due to toxic metabolic encephalopathy. Exact etiology uncertain, but possibly related to opiate withdrawal. Patient was on very hi gh-dose gabapentin, which may have become toxic because of acute renal failure. Gabapentin is renally excreted. * Rule out unwitnessed seizure. Patient on Wellbutrin and tramadol, which can lower seizure threshold. Some reported history of possible alcoholism. * Acute hypoxic respiratory failure, status post extubation. Aspiration pneumonia. * Acute kidney injury, resolved. * Hypotension on arrival, possible shock. * Hypertension * History of prostate cancer * Adrenal insufficiency Plan: * EEG from 03/10/2021 revealed intermittent background slowing with some mixed fast frequency activity. This suggests generalized cerebral dysfunction as can be seen with toxic metabolic encephalopathy or from medication effect. No epileptiform activity was seen. * Stop tramadol and Wellbutrin. * Gabapentin level 5.2 (2-12). Now that renal functions are normal, we will resume gabapentin 600 mg 3 times a day. * B12 857, vitamin D level 40, normal. * Medical management as per IM, critical care and other specialties. * Psychiatry also following the patient.
[2021-03-11] MEDS: GABAPENTIN 300 MG CAP PO SCH (23:09)
[2021-03-12 04:11] LABS: Basophils % (A) 0 %; Eosinophils # (A) 0.2 k/uL (0-0.7); Eosinophils % (A) 3 %; HCT 27.6 % (39.0-53.0); HGB 9.5 gm/dL (13.0-17.5); Lymphocytes # (A) 0.8 k/uL (1.0-4.8); Lymphocytes % (A) 15 %; MCH 31.2 pg (25.0-35.0); MCHC 34.6 g/dL (31.0-37.0); MCV 90.1 fL (80.0-100.0); Mean Platelet Volume 7.9; Monocytes # (A) 0.3 k/uL (0-1.0); Monocytes % (A) 7 %; Neutrophils # (A) 3.9 k/uL (1.3-7.7); Neutrophils % (A) 74 %; Platelet Count 177 k/uL (150-450); RBC 3.06 m/uL (4.30-5.90); RDW 14.3 % (11.5-15.5); WBC 5.2 k/uL (3.8-10.6)
[2021-03-12 04:20] LABS: ALT 20 U/L (4-49); AST 31 U/L (17-59); African American GFR (CKD) >90 (>60 ml/min/1.73 sqM); Albumin 3.1 g/dL (3.5-5.0); Alkaline Phosphatase 62 U/L (38-126); Anion Gap 6 mmol/L; Blood Urea Nitrogen 23 mg/dL (9-20); Calcium 8.8 mg/dL (8.4-10.2); Carbon Dioxide 23 mmol/L (22-30); Chloride 111 mmol/L (98-107); Glucose 88 mg/dL (74-99); Non-African American GFR(CKD) >90 (>60 ml/min/1.73 sqM); Potassium 3.7 mmol/L (3.5-5.1); Sodium 140 mmol/L (137-145); Total Bilirubin 0.2 mg/dL (0.2-1.3); Total Protein 5.3 g/dL (6.3-8.2)
[2021-03-12] MEDS ORDERED: Potassium Replacement Protocol 1 EACH MISC MISCELLANE PRN (04:22)
[2021-03-12] MEDS: CLINDAMYCIN 600 MG in DEXTROSE 5% IN WATER 50 ML IVPB SCH ×4 (04:37→13:42)
[2021-03-12] MEDS: DEXMEDETOMIDINE/0.9% NACL(PMX) 400 MCG in EMPTY BAG 1 BAG IV SCH (04:38)
[2021-03-12] MEDS: SODIUM CHLORIDE 0.9% 1,000 ML IV SCH (04:38)
[2021-03-12] MEDS ORDERED: POTASSIUM CHLORIDE ER 20 MEQ TAB.ER PO SCH (05:00)
[2021-03-12] MEDS: THIAMINE 100 MG TAB PO SCH (06:49)
--- NOTE | 2021-03-12 08:17 | XR ---
EXAMINATION TYPE: XR chest 1V portable DATE OF EXAM: 03/12/2021 COMPARISON: Chest x-ray 03/11/2021 HISTORY: Abnormal chest x-ray, post tube removal TECHNIQUE: Single frontal view of the chest is obtained. FINDINGS: There is no pneumothorax or pleural effusion. Cardiomediastinal silhouette is stable. Inte rstitium mildly increased as on prior. There are overlying leads. IMPRESSION: Essentially stable exam.
[2021-03-12] MEDS: hydrALAZINE HCL 25 MG TAB PO SCH (10:37)
[2021-03-12] MEDS: GABAPENTIN 300 MG CAP PO SCH ×2 (10:37→14:56)
[2021-03-12] MEDS: HEPARIN SODIUM,PORCINE/PF 5,000 UNIT/0.5 ML SYRINGE SQ SCH (10:39)
[2021-03-12] MEDS: PANTOPRAZOLE 40 MG/10 ML VIAL IV SCH (10:41)
[2021-03-12 11:39] LABS: Glucose,Whole Blood 83 mg/dL (75-99)
--- NOTE | 2021-03-12 11:58 | P.PN ---
Subjective Progress Note Date: 03/12/21 Principal diagnosis: Altered mental status, acute toxic metabolic encephalopathy and acute hypoxic respiratory failure, inability to protect his airways. This is a 50-year-old white male, known history of hypertension, fibromyalgia, adrenal insufficiency, herpes simplex infection, alcohol abuse, patient was brought in by EMS with unresponsiveness. Patient was found at the curb not acting properly, and having difficulty walking. Someone called EMS, and upon EMS arrival, patient was refusing transport however his mental status deteriorated and upon arrival to the ER patient became unconscious. And he required intubation in the ER. Blood pressure was noted to be low at the time 76/47. Patient was given dextrose and Narcan, but no improvement in his mental status initially. It was felt by the ER physician that the patient could not protect his airways, and he was having episodes of hypoxia and apnea. He was intubated and placed on mechanical ventilation. Computed tomography scan of the brain showed no acute change. X-ray showed nonspecific bilateral infiltrates. PCR for COVID-19 was negative and EKG showed sinus rhythm with prolonged QT intervals. Patient was admitted to the ICU post intubation, and I was asked to see him on consultation. Not much history could be obtained from the patient, patient is now sedated, and when propofol was weaned off, patient became extremely agitated but not appropriate. Hence had to be placed back on propofol. He is now on assist control rate of 20,000 volume 450 FiO2 40% PEEP of 5. ABG showed a pO2 of more than 400 pCO2 of 43 pH of 7.30. Hence his FiO2 was decreased down to 35%. Patient is on propofol at 20 mcg/kg/m, IV fluids 0.9 normal saline at 130 per hour. And I have recommended a fluid bolus of 1 L 0.9 normal saline to this patient at that his blood pressure was marginal. He added clindamycin since I'm suspecting some component of aspiration noted on the chest x-ray with bilateral infiltrates. Drug screen was negative serum alcohol was less than 10 ammonia level was less than 9. CPK however was elevated at 745, and I believe the patient may have fallen since he wasn't able to walk properly upon his initial evaluation by EMS. Patient was reevaluated today on 03/10/2021, remains in the ICU, intubated and mechanically ventilated. He is on assist control rate of 20,000 volume 450 FiO2 35% PEEP of 5. Remains on propofol at 20 mcg/kg/m IV fluid 0.9 normal saline at 75 mL per hour. Patient is not requiring any pressors. He was placed yesterday on stress doses of hydrocortisone, and that seemed to help his blood pressure significantly. Patient is arousable, although he is on propofol, seems to follow instructions, chest x-ray did show improvement in his bilateral infiltrates. Patient is wiggling his toes, closing and opening his eyes, squeezing hands, hence I have recommended that we discontinue propofol, will likely give the patient a weaning trial with pressure support of 8 and CPAP, and if tolerated may proceed to weaning and extubation. However I have recommended Precedex to be used in case the patient gets extremely agitated. Looking at the patient's list of medication, he seems to be on multiple medications that may actually contribute and affect his mental status. Including narcotics, antidepressants, and many other meds. These are presently on hold. ABG today showed a pO2 of 140 pCO2 of 39 pH of 7.35 CBC is relatively normal except for low hemoglobin of 10.1. Electrolytes are normal and renal profile is normal liver profile is normal. Patient was reevaluated today on 03/11/2021, patient was successfully extubated yesterday, however he remains confused, and intermittently agitated, required soft restraints in addition to multiple metastases to keep him calm including Precedex, Ativan, and Haldol. During my evaluation, the patient was noted to be calm, and not in any distress. CBC is relatively normal. Electrolytes are normal. Sugar is 108. Renal profile is normal. EEG is suggestive of generalized cerebral dysfunction correlating with his clinical presentation of metabolic encephalopathy no evidence of epileptiform activity. Chest x-ray showed bilateral coarse interstitium otherwise unremarkable. Patient was reevaluated today on 03/12/2021, patient remains in the ICU, patient had intermittent episodes of agitations yesterday, required Precedex. Patient has been off Precedex since 6 AM this morning. Seems to be called, seen by psychiatry and the recommendation was to use Haldol. He was also seen by neurology, and believe that his symptoms are mostly related to toxic metabolic encephalopathy and possibly some component of withdrawal from multiple meds and narcotics including Suboxone, however overall the patient seems to be doing better today compared to yesterday, and seems to be a bit more cooperative. Found out today that the patient has been following up with a [facility] in [place]. [facility], the patient is doing great, chest x-ray showed almost complete resolution of his bilateral infiltrates. I believe the patient may have had some component of aspiration, today I'm recommending that we stop Levaquin and continue clindamycin. Considering his agitation intermittently, and considering was just taken off Precedex, I will continue to monitor the patient in the ICU at least for the next 24 hours. CBC is relatively normal lites are normal renal profile are normal chest x-ray was reviewed and as noted earlier. Objective - Vital Signs Vital signs: Vital Signs Temp 97.9 F 03/12/21 04:00 Pulse 84 03/12/21 07:00 Resp 13 03/12/21 07:00 BP 124/89 03/12/21 07:00 Pulse Ox 95 03/12/21 07:00 Intake & Output 03/11/21 03/12/21 03/12/21 18:59 06:59 18:59 Intake Total 1205 1438.621 600 Output Total 125 550 700 Balance 1080 888.621 -100 Weight 100.5 kg Intake: IV 1005 1150 400 0.9 905 1100 400 Clindamycin 600 mg In 100 50 Dextrose 5% in Water 50 ml @ 50 mls/hr IVPB Q8HR [facility] Rx#:[id number] Intake, IV Titration 188.621 Amount Dexmedetomidine/0.9% NaCl 188.621 (Pmx) 400 mcg In Empty Bag 1 bag @ Titrate IV . Q0M [facility] Rx#:[id number] Oral 200 100 200 Output: Urine 125 550 700 Other: Voiding Method Urinal # Voids 1 - Exam Physical Exam revealed 50-year-old male , in no distress. Calm, alert and oriented 3. Head: Atraumatic, normocephalic HEENT:[PERRLA, EOMI, nonicteric, moist mucous membranes. Chest: [Symmetrical chest expansion. Clear throughout.] Cardiac Exam: [Normal S1 and S2, no S3 gallop, 2/6 systolic murmur thought the precordium. Abdomen: [Soft, nontender, no megaly, no rebound, no guarding, normal bowel sounds.] Extremities: [No clubbing, no edema, no cyanosis.] Musculoskeletal: No deformities, no limitation in range of motion Neurological Exam: Calm, no gross focal neurologic deficits. Psychiatric: Depressed mood, blunt affect, normal mental status. - Labs CBC & Chem 7: 03/12/21 03:44 03/12/21 03:44 Labs: Abnormal Lab Results - Last 24 Hours (Table) 03/11/21 03/12/21 03/12/21 Range/Units 13:32 03:44 03:44 RBC 3.06 L (4.30-5.90) m/uL Hgb 9.5 L (13.0-17.5) gm/dL Hct 27.6 L (39.0-53.0) % Lymphocytes # 0.8 L (1.0-4.8) k/uL Chloride 111 H (98-107) mmol/L BUN 23 H (9-20) mg/dL POC Glucose (mg/dL) 108 H (75-99) mg/dL Total Protein 5.3 L (6.3-8.2) g/dL Albumin 3.1 L (3.5-5.0) g/dL Microbiology - Last 24 Hours (Table) 03/09/21 09:54 Blood Culture - Preliminary Blood No Growth after 48 hours 03/09/21 09:50 Blood Culture - Preliminary Blood No Growth after 48 hours 03/09/21 10:00 Gram Stain - Final Sputum Sputum Culture - Preliminary Assessment and Plan Assessment: Impression: Altered mental status, acute toxic metabolic encephalopathy, history of opioid dependence. Acute hypoxic respiratory failure and inability to protect airway secondary to above. Requiring intubation and mechanical ventilation, patient was extubated on 03/10/2021. Acute kidney injury, resolved based on follow-up renal profile. Hypovolemic hypotension , resolved. Limited aspiration pneumonia. Resolved. History of prostate cancer. History of adrenal insufficiency, off hydrocortisone at present. Fibromyalgia. History of alcoholism, on CIWA protocol. History of herpes simplex infection. Recommendation: Continue antibiotics. Continue clindamycin discontinue Levaquin. Continue CIWA protocol. Psychiatric recommendations were noted. Continue GI and DVT prophylaxis. Continue IV fluids. Continue to monitor in ICU. Continue to follow while in the ICU. Prognosis remains guarded Time with Patient: Less than 30
[2021-03-12 12:59] VITALS: RESP 14; TEMP 98.4
[2021-03-12 13:24] VITALS: BP 158/92; PULSE 87
--- NOTE | 2021-03-12 13:26 | P.PN ---
Subjective Progress Note Date: 03/12/21 Patient was seen for a follow-up. Patient has much improved. Mentation is normal. Patient is no more agitated, no more on restraints. Denies headache. Patient states that about 10 days prior to admission, he was under a lot of stress, with severe sleep deprivation. He had some accident in the family, this was making him significantly stressed out. Out of 10 days he may have slept only 3 nights. He was just on the go. He thinks that because of sleep deprivation, he had this episode. Patient states that he does take Suboxone through [place] [facility]. He was taking Ambien and trazodone, but was recommended to go off that. He denies any history of illicit drugs, no alcohol. Objective - Vital Signs Vital signs: Vital Signs Temp 98.4 F 03/12/21 12:00 Pulse 84 03/12/21 12:00 Resp 14 03/12/21 12:00 BP 151/88 03/12/21 12:00 Pulse Ox 95 03/12/21 12:00 Intake & Output 03/11/21 03/12/21 03/12/21 18:59 06:59 18:59 Intake Total 1205 1438.621 600 Output Total 125 550 700 Balance 1080 888.621 -100 Weight 100.5 kg Intake: IV 1005 1150 400 0.9 905 1100 400 Clindamycin 600 mg In 100 50 Dextrose 5% in Water 50 ml @ 50 mls/hr IVPB Q8HR [facility] Rx#:[id number] Intake, IV Titration 188.621 Amount Dexmedetomidine/0.9% NaCl 188.621 (Pmx) 400 mcg In Empty Bag 1 bag @ Titrate IV . Q0M [facility] Rx#:[id number] Oral 200 100 200 Output: Urine 125 550 700 Other: Voiding Method Urinal Urinal # Voids 1 - Exam Patient is a middle aged male, in no distress. Patient is alert awake oriented to time place and person. He knows it is March 2021, that he is in [place] in [facility] and name of the current president. Speech and language functions are normal. Attention, concentration and fund of knowledge is adequate. On cranial examination, pupils are equal, round and reacting to light, visual nelson are full on confrontation with no neglect on double simultaneous stimulation, extraocular muscles are intact with no nystagmus. Face is symmetric, tongue protrudes to the midline. Palatal elevation and sensation normal, hearing and shoulder shrug normal, facial sensation normal. On muscle strength testing, there is no pronator drift and the strength is normal in arms and legs distally and proximally. Deep tendon reflexes are 1 in the upper limbs, 2 in the lower limbs and plantars downgoing. No clonus. Sensory to touch is equal with no neglect. Cerebellar function showed no ataxia for [id number] testing. No dysdiadochokinesia. Tone and bulk of muscles normal. He has mild tremulousness for [id number] as well as outstretched hands. Gait deferred. On general examination, there is no carotid bruit or murmur, S1-S2 audible. Abdomen is soft nontender. Chest is clear. Peripheral pulses are present. No edema. - Labs CBC & Chem 7: 03/12/21 03:44 03/12/21 03:44 Labs: Abnormal Lab Results - Last 24 Hours (Table) 03/11/21 03/12/21 03/12/21 Range/Units 13:32 03:44 03:44 RBC 3.06 L (4.30-5.90) m/uL Hgb 9.5 L (13.0-17.5) gm/dL Hct 27.6 L (39.0-53.0) % Lymphocytes # 0.8 L (1.0-4.8) k/uL Chloride 111 H (98-107) mmol/L BUN 23 H (9-20) mg/dL POC Glucose (mg/dL) 108 H (75-99) mg/dL Total Protein 5.3 L (6.3-8.2) g/dL Albumin 3.1 L (3.5-5.0) g/dL Microbiology - Last 24 Hours (Table) 03/09/21 09:50 Blood Culture - Preliminary Blood No Growth after 72 hours 03/09/21 09:54 Blood Culture - Preliminary Blood No Growth after 72 hours 03/09/21 10:00 Gram Stain - Final Sputum Sputum Culture - Preliminary Assessment and Plan Assessment: * Acute delirium, likely due to toxic metabolic encephalopathy. Encephalopathy now seems to have resolved. He is still slightly tremulous. * Exact etiology of delirium/TME uncertain, but possibly related to acute renal failure, opiate withdrawal versus medication side effect. * Rule out unwitnessed seizure. Patient on Wellbutrin and tramadol, which can lower seizure threshold. Patient denies any history of alcoholism. * Acute hypoxic respiratory failure, status post extubation. Aspiration pneumonia. * Acute kidney injury, resolved. * Hypotension on arrival, possible shock, resolved. * Hypertension * History of prostate cancer * Adrenal insufficiency Plan: * Patient's mentation has completely normalized. He is fully oriented, exam nonfocal. Still mildly tremulous likely from underlying toxic metabolic causes, though much improved. * EEG from 03/10/2021 revealed intermittent background slowing with some mixed fast frequency activity. This suggests generalized cerebral dysfunction as can be seen with toxic metabolic encephalopathy or from medication effect. No epileptiform activity was seen. * Stop tramadol and Wellbutrin. * Gabapentin level 5.2 (2-12). Now that renal functions are normal, we will resume gabapentin 600 mg 3 times a day. * B12 857, vitamin B6 34, folate > 20, vitamin E 40 normal. vitamin D level 40, normal. TSH normal. Hemoglobin A1c 5.6. * Medical management as per IM, critical care and other specialties. * Psychiatry also following the patient. * As patient's mentation has completely normalized, patient is clear from neur ology standpoint. Neurology will sign off. Please reconsult us if any concerns. Dr. Nabil Corey resuming services from the morning.
--- NOTE | 2021-03-13 06:29 | DS ---
DISCHARGE SUMMARY DATE OF SERVICE: 03/12/2021 I am covering for Dr. Sierra. FINAL DIAGNOSIS: 1. Change in mental status, acute metabolic encephalopathy, possibly medication induced. 2. Acute hypoxic respiratory failure secondary to acute metabolic encephalopathy and status post intubation, mechanical ventilation. 3. Hypovolemic hypotension. 4. Limited aspiration pneumonia, improved. 5. History of prostate cancer. 6. History of adrenal insufficiency off hydrocortisone. 7. History of fibromyalgia. 8. Alcoholism. 9. History of herpes simplex. DISCHARGE DISPOSITION: Patient will be discharged in stable condition with guarded prognosis. Total time taken 35 minutes. HISTORY OF PRESENT ILLNESS: This is a 50-year-old gentleman with a past history of multiple medical problems as mentioned earlier, being followed by Dr. Sierra in the outpatient setting, apparently took multiple medications including L-tryptophan, as well as melatonin and other dhzp-evy-lddbitc medications. The patient had change in mental status. Patient mechanically intubated. Patient monitored in ICU as mentioned earlier. Dr. Viveros saw the patient and the patient extubated. Patient treated with multiple medications including antibiotics, but currently the patient improved significantly and the patient is cleared for discharge at this time. The most recent chest x-ray which was reviewed personally by me showed stable exam. Short course of antibiotics were recommend at this time. PHYSICAL EXAMINATION: On exam, vitals stable. Cardiovascular S1 and S2. Abdomen soft. Nervous system: No focal deficits. DISCHARGE INSTRUCTIONS: Diet is cardiac. Activity is limited until followup. Follow up with Dr. Sierra in 3-4 days. MEDICATIONS: 1. Ambien 10 mg q.h.s. 2. Enalapril 20 mg daily. 3. Famvir 750 mg p.o. t.i.d. 4. Fluvoxamine 100 mg b.i.d. 5. Iron sulfate 320 mg daily. 6. Baclofen 10 to 20 mg daily. 7. Neurontin 800 mg t.i.d. 8. ProAmatine 5-10 mg p.r.n. 9. Buprenorphine film sublingually b.i.d. 10.Trazodone 50-100 mg p.o. as before. 11.Ultram 100 mg t.i.d. 12.Wellbutrin SR 150 mg p.o. daily. 13.Apresoline 25 mg b.i.d. 14.Thiamine 100 mg p.o. b.i.d.. 15.Clindamycin 150 mg q.6 for 3 days. I have instructed the patient to bring all the [id number] medications to primary care physician's office and discontinue which are duplicative . Once again the patient is stable currently and discharge cleared by Dr. Potter. Further recommendations to follow. MMODL / IJN: [id number] / MTDD
[2021-03-15 07:33] LABS: Nicotinamide 26 ng/mL; Nicotinic Acid None Detected; Nicotinuric Acid None Detected
== END 2021-03-12 14:00 | disposition home or self-care (01) | DRG 871 ==
LOC: EC 01:10 → 2SICU 05:08
PROVIDERS: ADMIT Internal Medicine; ATTEND Internal Medicine
PROC: 5A1945Z Respiratory Ventilation, 24-96 Consecutive Hours (ICD-10-PCS; principal; 2021-03-09)
PROC: 0BH17EZ Insertion of Endotracheal Airway into Trachea, Via Natural or Artificial Opening (ICD-10-PCS; principal; 2021-03-09)
DX: A41.9 Sepsis, unspecified organism (principal); G92 Toxic encephalopathy; J69.0 Pneumonitis due to inhalation of food and vomit; J96.01 Acute respiratory failure with hypoxia; N17.0 Acute kidney failure with tubular necrosis; R65.21 Severe sepsis with septic shock; E27.40 Unspecified adrenocortical insufficiency; E87.1 Hypo-osmolality and hyponatremia; F05 Delirium due to known physiological condition; F10.231 Alcohol dependence with withdrawal delirium; F11.20 Opioid dependence, uncomplicated; B00.9 Herpesviral infection, unspecified; C61 Malignant neoplasm of prostate; D50.9 Iron deficiency anemia, unspecified; E78.5 Hyperlipidemia, unspecified; E86.1 Hypovolemia; F31.9 Bipolar disorder, unspecified; F41.9 Anxiety disorder, unspecified; I12.9 Hypertensive chronic kidney disease with stage 1 through stage 4 chronic kidney disease, or unspecified chronic kidney disease; M79.7 Fibromyalgia; N18.2 Chronic kidney disease, stage 2 (mild); T50.901A Poisoning by unspecified drugs, medicaments and biological substances, accidental (unintentional), initial encounter; Z78.1 Physical restraint status; Z20.822 Contact with and (suspected) exposure to COVID-19; Z72.820 Sleep deprivation; Z79.899 Other long term (current) drug therapy; Z82.3 Family history of stroke; Z82.49 Family history of ischemic heart disease and other diseases of the circulatory system; Z83.3 Family history of diabetes mellitus; Z87.891 Personal history of nicotine dependence; Z88.0 Allergy status to penicillin; Z86.14 Personal history of Methicillin resistant Staphylococcus aureus infection; Z90.49 Acquired absence of other specified parts of digestive tract; Z90.89 Acquired absence of other organs; Z90.3 Acquired absence of stomach [part of]; Z56.0 Unemployment, unspecified
CPT/HCPCS: 36415; 36600; 70450; 71045; 80048; 80053; 80143; 80156; 80164; 80171; 80178; 80179; 80185; 80306; 80320; 81001; 82140; 82180; 82306; 82533; 82550; 82607; 82652; 82805; 83540; 83550; 83605; 83735; 83880; 84100; 84207; 84425; 84443; 84446; 84484; 84590; 84591; 84597; 85025; 85610; 85730; 87040; 87070; 87086; 87205; 87635; 93005; 94002; 94003; 94640; 95819; 96361; 96365; 96375; 96376; 99291

== ENCOUNTER → 2021-03-25 | Outpatient (CLI) | payer BC ==
[2021-03-25 23:11] LABS: HCT 31.5 % (39.6-50.0); HGB 10.1 g/dL (13.0-17.0); MCH 30.1 pg (27.0-32.0); MCHC 32.1 g/dL (32.0-37.0); MCV 93.8 fL (80.0-97.0); Mean Platelet Volume 10.1 fL (9.5-12.2); Platelet Count 320 X 10*3/uL (140-440); RBC 3.36 X 10*6/uL (4.40-5.60); RDW 14.5 % (11.5-14.5); Reticulocyte % 1.85 % (0.10-1.80); WBC 5.03 X 10*3/uL (4.50-10.00)
[2021-03-26 05:51] LABS: Ferritin 63.3 ng/mL (22.0-322.0)
[2021-03-26 07:20] LABS: % Iron Saturation 16.32 (15.00-50.00); Prostate Specific Antigen 0.4 ng/mL (0.0-3.5)
== END | disposition home or self-care (01) ==
LOC: LABWHC1 14:08
PROVIDERS: ATTEND Internal Medicine
DX: C61 Malignant neoplasm of prostate (principal); D64.9 Anemia, unspecified
CPT/HCPCS: 36415; 82550; 82728; 83010; 83540; 83550; 84153; 84402; 84403; 85027; 85045

== ENCOUNTER 2021-04-01 13:52 | Emergency (ER) | payer BC ==
[2021-04-01] MEDS ORDERED: NALOXONE 0.4 MG/ML 1 ML VIAL IVP STA (15:02)
[2021-04-01 15:21] LABS: Basophils % (A) 1 %; Eosinophils # (A) 0.2 k/uL (0-0.7); Eosinophils % (A) 4 %; HCT 27.3 % (39.0-53.0); HGB 9.6 gm/dL (13.0-17.5); Lymphocytes # (A) 0.7 k/uL (1.0-4.8); Lymphocytes % (A) 13 %; MCH 31.3 pg (25.0-35.0); MCHC 35.2 g/dL (31.0-37.0); Monocytes # (A) 0.4 k/uL (0-1.0); Monocytes % (A) 7 %; Neutrophils % (A) 74 %; Platelet Count 210 k/uL (150-450); RBC 3.07 m/uL (4.30-5.90); RDW 14.3 % (11.5-15.5); WBC 5.4 k/uL (3.8-10.6)
[2021-04-01 15:28] LABS: ALT 24 U/L (4-49); AST 66 U/L (17-59); African American GFR (CKD) >90 (>60 ml/min/1.73 sqM); Albumin 3.9 g/dL (3.5-5.0); Alkaline Phosphatase 83 U/L (38-126); Anion Gap 11 mmol/L; Blood Urea Nitrogen 10 mg/dL (9-20); Calcium 8.9 mg/dL (8.4-10.2); Carbon Dioxide 22 mmol/L (22-30); Chloride 103 mmol/L (98-107); Glucose 76 mg/dL (74-99); Non-African American GFR(CKD) >90 (>60 ml/min/1.73 sqM); Potassium 3.5 mmol/L (3.5-5.1); Sodium 136 mmol/L (137-145); Total Bilirubin 0.1 mg/dL (0.2-1.3); Total Protein 6.3 g/dL (6.3-8.2)
--- NOTE | 2021-04-01 15:34 | XR ---
KUB HISTORY: Foreign body in rectum Frontal KUB and 2 images, no comparisons Lung bases are clear. Surgical clips are present in the right upper quadrant. There is no evident obs truction or pneumoperitoneum. No radiopaque foreign body is evident. There is retained fecal debris t hroughout the distribution of the colon. Probable phleboliths noted in the right hemipelvis. impression: Nonobstructive bowel gas pattern, postop changes
--- NOTE | 2021-04-01 18:05 | CT ---
EXAMINATION TYPE: CT abdomen pelvis wo con DATE OF EXAM: 04/01/2021 COMPARISON: None HISTORY: pt put foreign boy up his rectum CT DLP: 684.6 mGycm Automated exposure control for dose reduction was used. TECHNIQUE: Helical acquisition of images was performed from the lung bases through the pelvis. FINDINGS: LUNG BASES: No significant abnormality is appreciated. LIVER/GB: No significant abnormality is appreciated. PANCREAS: No significant abnormality is seen. SPLEEN: No significant abnormality is seen. ADRENALS: No significant abnormality is seen. KIDNEYS: No significant abnormality is seen. PERITONEAL CAVITY: No pneumoperitoneum or peritoneal fluid. RETROPERITONEAL ADENOPATHY: None visualized REPRODUCTIVE ORGANS: No significant abnormality is seen URINARY BLADDER: No significant abnormality is seen. PELVIC ADENOPATHY: None visualized. OSSEOUS STRUCTURES: No significant abnormality is seen. BOWEL: There are no rectal or anal radiopaque foreign bodies. Remainder of the termination of the co deshaun and small bowel and stomach is also unremarkable. IMPRESSION: NO ACUTE PROCESS.
[2021-04-01 18:30] VITALS: BP 138/86; PULSE 68; RESP 18; TEMP 98
--- NOTE | 2021-04-01 18:51 | ED ---
General Adult HPI - General Chief complaint: Overdose Stated complaint: overdose Time Seen by Provider: 04/01/21 14:51 Source: patient Mode of arrival: wheelchair Limitations: no limitations - History of Present Illness Initial comments: The patient presents with a complaint of possible Suboxone overdose. He states that he placed approximately 20 of the 8 mg Suboxone tabs and a condom and then tied them off and placed it up his rectum. He states that he did this to safeguard the medication as he did not want to lose it or have anyone still it. He then was unable to retrieve this medication. He states that he has had multiple bowel movements including approximately "15 pounds of stool" , out of him. He has taken 2 [id number] enemas as well. He has had not seen the condom are medication and his stool and is worried that it could be traveling proximally. He states that he takes the Suboxone for chronic pain related to fibromyalgia and prostate cancer. There has been no changes in mental status. He denies any physical complaints. No other modifying factors. - Related Data Home Medications Medication Instructions Recorded Confirmed Gabapentin [Neurontin] 800 mg PO TID 10/22/14 03/09/21 Baclofen [Lioresal] 10 - 20 mg PO QID PRN 04/19/17 03/09/21 Famciclovir [Famvir] 750 mg PO TID 04/19/17 03/09/21 Midodrine HCl [ProAmatine] 5 - 10 mg PO BID@0800,1200 04/19/17 03/09/21 Zolpidem Tartrate [Ambien] 10 mg PO HS 04/19/17 03/09/21 Buprenorphine HCl/Naloxone HCl 0.5 film SL BID 03/09/21 03/09/21 [Suboxone 8 mg-2 mg Sl Film] Enalapril Maleate 20 mg PO DAILY 03/09/21 03/09/21 Ferrous Sulfate [Iron (65 MG 325 mg PO DAILY 03/09/21 03/09/21 Elemental)] buPROPion SR [Wellbutrin SR] 150 mg PO DAILY 03/09/21 03/09/21 fluvoxaMINE MALEATE [Fluvoxamine 100 mg PO BID 03/09/21 03/09/21 Maleate] traMADol HCl [Ultram] 100 mg PO TID 03/09/21 03/09/21 traZODone HCL 50 - 100 mg PO HS 03/09/21 03/09/21 Previous Rx's Medication Instructions Recorded Clindamycin [Cleocin] 150 mg PO Q6H #12 cap 03/12/21 Thiamine [Vitamin B-1] 100 mg PO BID-W/MEALS #20 tab 03/12/21 hydrALAZINE HCL [Apresoline] 25 mg PO BID #60 tab 03/12/21 Allergies Allergy/AdvReac Type Severity Reaction Status Date / Time Penicillins Allergy Rash/Hives Verified 04/01/21 14:02 Review of Systems ROS Statement: Those systems with pertinent positive or pertinent negative responses have been documented in the HPI. ROS Other: All systems not noted in ROS Statement are negative. Past Medical History Past Medical History: No Reported History Additional Past Medical History / Comment(s): alcoholism History of Any Multi-Drug Resistant Organisms: MRSA Date of last positivie culture/infection: 2007 MDRO Source:: abdomen Past Surgical History: Cholecystectomy, Tonsillectomy Additional Past Surgical History / Comment(s): abdominal sx Past Psychological History: Anxiety, Bipolar, Depression Smoking Status: Current every day smoker Past Alcohol Use History: Abuse Past Drug Use History: Marijuana, Opiates, Prescription Drug Abuse General Exam - General Exam Comments Initial Comments: GENERAL: The patient is well nourished and well hydrated. VITAL SIGNS: Heart rate, blood pressure, respiratory rate reviewed as recorded in nurse's notes. EYES: Pupils are round and reactive. Extraocular movements are intact. No conjunctival / lid redness or swelling. ENT: No external evidence of injury, swelling, or ecchymosis. Airway is patent. Throat is clear. NECK: Nontender. No swelling or evidence of injury. No subcutaneous emphysema. Trachea is midline. No thyroid mass. HEART: Regular rate and rhythm. Good peripheral pulses. LUNGS/CHEST: Breath sounds clear and equal bilaterally. No rales, rhonchi, or wheezes. No ecchymosis, subcutaneous emphysema, or tenderness. ABDOMEN: Abdomen soft without tenderness. No palpable masses or organomegaly. No peritoneal signs. No abdominal wall swelling or ecchymosis. Patient refuses rectal examination. EXTREMITIES: No extremity tenderness. Normal muscle tone and function. No thoracolumbar tenderness. NEUROLOGIC: Sensation is grossly intact. Cranial nerve exam reveals face is symmetrical, tongue is midline, speech is clear. SKIN: No abrasions or ecchymosis is noted. No induration or masses noted. PSYCHIATRIC: Alert and oriented. Appropriate behavior and judgment. Limitations: no limitations Course Vital Signs 04/01/21 04/01/21 04/01/21 13:56 15:12 18:29 Temperature 97.8 F 98 F Pulse Rate 75 68 Respiratory 20 14 18 Rate Blood Pressure 122/54 138/86 O2 Sat by Pulse 97 100 Oximetry Medical Decision Making - Medical Decision Making The patient was seen and examined. All diagnostics were reviewed. A KUB was done but this does not show any evidence of foreign body or gross abnormality. He also has a laboratory analysis which shows a mild anemia. He was somewhat sleepy at one point in time and received 0.2 of Narcan with improvement. He, was watched for approximately 5 hours in the emergency department and his mental status did not deteriorate. He also had a computed tomography scan of his abdomen and pelvis to further evaluate for the possibility of rectal foreign body. This does not demonstrate any rectal foreign body. He received a milk of molasses enema and also had excellent results prior to the enema and after the enema and there is no foreign bodies noted in his stool. Overall, it is not felt as though the medication is in his colon anymore. He likely passed the medication and did not realize it. Nevertheless, he is offered admission to the hospital on several occasions to further evaluate for any deterioration in his mental status. He refuses and states that he would like to be discharged home. Risks benefits are discussed and ultimately detail. He is quite lucid during these discussions with nurse present. He leaves in no identifiable distress. - Lab Data Result diagrams: 04/01/21 15:11 04/01/21 15:11 Lab Results 04/01/21 04/01/21 Range/Units 15:11 15:11 WBC 5.4 (3.8-10.6) k/uL RBC 3.07 L (4.30-5.90) m/uL Hgb 9.6 L (13.0-17.5) gm/dL Hct 27.3 L (39.0-53.0) % MCV 89.0 (80.0-100.0) fL MCH 31.3 (25.0-35.0) pg MCHC 35.2 (31.0-37.0) g/dL RDW 14.3 (11.5-15.5) % Plt Count 210 (150-450) k/uL MPV 7.0 Neutrophils % 74 % Lymphocytes % 13 % Monocytes % 7 % Eosinophils % 4 % Basophils % 1 % Neutrophils # 4.0 (1.3-7.7) k/uL Lymphocytes # 0.7 L (1.0-4.8) k/uL Monocytes # 0.4 (0-1.0) k/uL Eosinophils # 0.2 (0-0.7) k/uL Basophils # 0.0 (0-0.2) k/uL Sodium 136 L (137-145) mmol/L Potassium 3.5 (3.5-5.1) mmol/L Chloride 103 (98-107) mmol/L Carbon Dioxide 22 (22-30) mmol/L Anion Gap 11 mmol/L BUN 10 (9-20) mg/dL Creatinine 0.81 (0.66-1.25) mg/dL Est GFR (CKD-EPI)AfAm >90 (>60 ml/min/1.73 sqM) Est GFR (CKD-EPI)NonAf >90 (>60 ml/min/1.73 sqM) Glucose 76 (74-99) mg/dL Calcium 8.9 (8.4-10.2) mg/dL Total Bilirubin 0.1 L (0.2-1.3) mg/dL AST 66 H (17-59) U/L ALT 24 (4-49) U/L Alkaline Phosphatase 83 (38-126) U/L Total Protein 6.3 (6.3-8.2) g/dL Albumin 3.9 (3.5-5.0) g/dL Disposition Clinical Impression: Foreign body in anus and rectum, initial encounter, Prostate cancer, Anemia, Fibromyalgia Disposition: HOME SELF-CARE Condition: Good Instructions (If sedation given, give patient instructions): Rectal Foreign B izzy (ED) Additional Instructions: Please avoid putting any further foreign bodies anterior rectum. Is patient prescribed a controlled substance at d/c from ED?: No Referrals: None,Stated [Primary Care Provider] - 1-2 days Time of Disposition: 18:51
== END 2021-04-01 19:07 | disposition home or self-care (01) ==
LOC: EC 13:52
DX: T18.5XXA Foreign body in anus and rectum, initial encounter (principal); C61 Malignant neoplasm of prostate; D64.9 Anemia, unspecified; M79.7 Fibromyalgia; F31.9 Bipolar disorder, unspecified; F41.9 Anxiety disorder, unspecified; F17.200 Nicotine dependence, unspecified, uncomplicated; F12.90 Cannabis use, unspecified, uncomplicated; F11.90 Opioid use, unspecified, uncomplicated; Z88.0 Allergy status to penicillin; X58.XXXA Exposure to other specified factors, initial encounter
CPT/HCPCS: 36415; 93005; 80053; 85025; 74018; 74176; 99285; 96374; J2310

== ENCOUNTER 2021-06-15 13:52 | Emergency (ER) | payer BC ==
[2021-06-15 14:03] VITALS: BP 149/88; PULSE 91; RESP 20; TEMP 98.1
[2021-06-15] MEDS ORDERED: SODIUM CHLORIDE 0.9% 1,000 ML IV ONE (14:26)
[2021-06-15] MEDS ORDERED: SODIUM CHLORIDE 0.9% 500 ML 500 ML IV ONE (14:26)
[2021-06-15] MEDS ORDERED: ONDANSETRON 4 MG/2 ML VIAL IVP STA (14:27)
[2021-06-15] MEDS ORDERED: LORazepam 2 MG/ML INJ IV STA (14:27)
--- NOTE | 2021-06-15 14:35 | ED ---
General Adult HPI - General Chief complaint: Shortness of Breath Stated complaint: Diff Breathing Time Seen by Provider: 06/15/21 14:00 Source: patient, RN notes reviewed, old records reviewed Mode of arrival: wheelchair Limitations: no limitations - History of Present Illness Initial comments: This is a 50-year-old male who presents emergency department with past medical history significant for prostate cancer recently diagnosed and alcoholism. Jaclyn ent states he really drink quite a bit last night he stopped drinking about 1:00. Patient states she started throwing up at 3 ever since he can't stop thrown up. Patient states when he is vomiting becomes very short of breath because she can't 320 throwing up. Patient states currently he has no shortness of breath or difficulty breathing is not vomiting. Patient denies any chest pain or palpitations. Patient denies fever chills or cough. Patient denies headache patient denies numbness weakness. Patient denies lightheadedness or dizziness. Patient denies any recent injury or trauma. - Related Data Home Medications Medication Instructions Recorded Confirmed Gabapentin [Neurontin] 800 mg PO TID 10/22/14 06/15/21 Baclofen [Lioresal] 10 - 20 mg PO QID PRN 04/19/17 06/15/21 Zolpidem Tartrate [Ambien] 10 mg PO HS 04/19/17 06/15/21 traMADol HCl [Ultram] 100 mg PO TID 03/09/21 06/15/21 traZODone HCL 100 mg PO HS 03/09/21 06/15/21 Famotidine 40 mg PO DAILY PRN 06/15/21 06/15/21 Valganciclovir HCl 900 mg PO DAILY 06/15/21 06/15/21 Allergies Allergy/AdvReac Type Severity Reaction Status Date / Time Penicillins Allergy Rash/Hives Verified 06/15/21 15:12 Review of Systems ROS Statement: Those systems with pertinent positive or pertinent negative responses have been documented in the HPI. ROS Other: All systems not noted in ROS Statement are negative. Past Medical History Past Medical History: No Reported History Additional Past Medical History / Comment(s): alcoholism, prostate cancer, fibromyalgia History of Any Multi-Drug Resistant Organisms: MRSA Date of last positivie culture/infection: 2007 MDRO Source:: abdomen Past Surgical History: Cholecystectomy, Tonsillectomy Additional Past Surgical History / Comment(s): abdominal sx Past Psychological History: Anxiety, Bipolar, Depression Smoking Status: Current every day smoker Past Alcohol Use History: Abuse Past Drug Use History: Marijuana, Opiates, Prescription Drug Abuse General Exam - General Exam Comments Initial Comments: GENERAL: Patient is well-developed and well-nourished. Patient is nontoxic and well- hydrated and is in mild distress. ENT: Neck is soft and supple. No significant lymphadenopathy is noted. Oropharynx is clear. Moist mucous membranes. Neck has full range of motion without elicit ing any pain. EYES: The sclera were anicteric and conjunctiva were pink and moist. Extraocular m ovements were intact and pupils were equal round and reactive to light. Eyelids were unremarkable. PULMONARY: Unlabored respirations. Good breath sounds bilaterally. No audible rales rhonchi or wheezing was noted. CARDIOVASCULAR: There is a regular rate and rhythm without any murmurs gallops or rubs. ABDOMEN: Soft and nontender with normal bowel sounds. SKIN: Skin is clear with no lesions or rashes and otherwise unremarkable. NEUROLOGIC: Patient is alert and oriented x3. Cranial nerves II through XII are grossly intact. Motor and sensory are also intact. Normal speech, volume and content. Symmetrical smile. MUSCULOSKELETAL: Normal extremities with adequate strength and full range of motion. No lower extremity swelling or edema. No calf tenderness. LYMPHATICS: No significant lymphadenopathy is noted PSYCHIATRIC: Anxious Limitations: no limitations Course Vital Signs 06/15/21 13:57 Temperature 98.1 F Pulse Rate 91 Respiratory 20 Rate Blood Pressure 149/88 O2 Sat by Pulse 98 Oximetry Medical Decision Making - Medical Decision Making EKG shows normal sinus rhythm at 64 bpm OH interval 240 cardiac 102 QT interval 432 QTC is 445 per patient's EKG shows no ST segment elevation or depression. Patient was no longer vomiting emergency arm. Patient stated he felt considerably better. Patient was able to tolerate fluids. - Lab Data Result diagrams: 06/15/21 14:37 06/15/21 14:37 Lab Results 06/15/21 06/15/21 Range/Units 14:37 14:37 WBC 7.4 (3.8-10.6) k/uL RBC 4.78 (4.30-5.90) m/uL Hgb 14.6 (13.0-17.5) gm/dL Hct 44.0 (39.0-53.0) % MCV 92.1 (80.0-100.0) fL MCH 30.5 (25.0-35.0) pg MCHC 33.1 (31.0-37.0) g/dL RDW 14.5 (11.5-15.5) % Plt Count 326 (150-450) k/uL MPV 7.5 Neutrophils % 86 % Lymphocytes % 7 % Monocytes % 4 % Eosinophils % 1 % Basophils % 1 % Neutrophils # 6.4 (1.3-7.7) k/uL Lymphocytes # 0.5 L (1.0-4.8) k/uL Monocytes # 0.3 (0-1.0) k/uL Eosinophils # 0.1 (0-0.7) k/uL Basophils # 0.0 (0-0.2) k/uL Sodium 134 L (137-145) mmol/L Potassium 4.6 (3.5-5.1) mmol/L Chloride 101 (98-107) mmol/L Carbon Dioxide 21 L (22-30) mmol/L Anion Gap 12 mmol/L BUN 8 L (9-20) mg/dL Creatinine 0.64 L (0.66-1.25) mg/dL Est GFR (CKD-EPI)AfAm >90 (>60 ml/min/1.73 sqM) Est GFR (CKD-EPI)NonAf >90 (>60 ml/min/1.73 sqM) Glucose 106 H (74-99) mg/dL Calcium 10.0 (8.4-10.2) mg/dL Magnesium 2.0 (1.6-2.3) mg/dL Total Bilirubin 0.4 (0.2-1.3) mg/dL AST 36 (17-59) U/L ALT 16 (4-49) U/L Alkaline Phosphatase 152 H (38-126) U/L Total Protein 7.7 (6.3-8.2) g/dL Albumin 4.6 (3.5-5.0) g/dL Serum Alcohol <10 mg/dL Disposition Clinical Impression: Alcohol abuse, Acute vomiting Disposition: HOME SELF-CARE Condition: Good Instructions (If sedation given, give patient instructions): Abuse of Alcohol (ED), Acute Nausea and Vomiting (ED) Is patient prescribed a controlled substance at d/c from ED?: No Referrals: Ye Howe MD [Primary Care Provider] - 1-2 days Time of Disposition: 16:04
--- NOTE | 2021-06-15 14:58 | XR ---
EXAMINATION TYPE: XR chest 2V DATE OF EXAM: 06/15/2021 COMPARISON: Chest x-ray March 12, 2021 HISTORY: Difficulty in breathing. TECHNIQUE: Frontal and lateral views of the chest are obtained. FINDINGS: There is chronic emphysematous and pulmonary fibrotic changes without suspicious new focal air space opacity, pleural effusion, or pneumothorax seen. The cardiac silhouette size is stable an d within normal limits. Old healed fracture deformity distal right clavicle redemonstrated. Cholecyst ectomy clips redemonstrated on lateral view. IMPRESSION: Chronic changes without acute pulmonary process.
[2021-06-15 15:00] LABS: Basophils % (A) 1 %; Eosinophils # (A) 0.1 k/uL (0-0.7); Eosinophils % (A) 1 %; HGB 14.6 gm/dL (13.0-17.5); Lymphocytes # (A) 0.5 k/uL (1.0-4.8); Lymphocytes % (A) 7 %; MCH 30.5 pg (25.0-35.0); MCHC 33.1 g/dL (31.0-37.0); MCV 92.1 fL (80.0-100.0); Mean Platelet Volume 7.5; Monocytes # (A) 0.3 k/uL (0-1.0); Monocytes % (A) 4 %; Neutrophils # (A) 6.4 k/uL (1.3-7.7); Neutrophils % (A) 86 %; Platelet Count 326 k/uL (150-450); RBC 4.78 m/uL (4.30-5.90); RDW 14.5 % (11.5-15.5); WBC 7.4 k/uL (3.8-10.6)
[2021-06-15 15:11] LABS: ALT 16 U/L (4-49); AST 36 U/L (17-59); African American GFR (CKD) >90 (>60 ml/min/1.73 sqM); Albumin 4.6 g/dL (3.5-5.0); Alcohol <10 mg/dL; Alkaline Phosphatase 152 U/L (38-126); Anion Gap 12 mmol/L; Blood Urea Nitrogen 8 mg/dL (9-20); Carbon Dioxide 21 mmol/L (22-30); Chloride 101 mmol/L (98-107); Glucose 106 mg/dL (74-99); Non-African American GFR(CKD) >90 (>60 ml/min/1.73 sqM); Potassium 4.6 mmol/L (3.5-5.1); Sodium 134 mmol/L (137-145); Total Bilirubin 0.4 mg/dL (0.2-1.3); Total Protein 7.7 g/dL (6.3-8.2)
[2021-06-15] MEDS ORDERED: ONDANSETRON 4 MG ODT STARTER PACK 2 TAB BTL PO STA (16:05)
== END 2021-06-15 16:27 | disposition home or self-care (01) ==
LOC: EC 13:52
DX: R11.10 Vomiting, unspecified (principal); F10.10 Alcohol abuse, uncomplicated; F41.9 Anxiety disorder, unspecified; F31.9 Bipolar disorder, unspecified; F17.200 Nicotine dependence, unspecified, uncomplicated; F12.90 Cannabis use, unspecified, uncomplicated; Z88.0 Allergy status to penicillin; Z85.46 Personal history of malignant neoplasm of prostate; Z90.49 Acquired absence of other specified parts of digestive tract; Y90.0 Blood alcohol level of less than 20 mg/100 ml
CPT/HCPCS: 99285; 96374; 96375; 96361; 36415; 93005; 80053; 83735; 85025; 80320; 71046; J2060; J2405; S0119

== ENCOUNTER → 2021-09-22 | Outpatient (CLI) | payer BC ==
[2021-09-22 19:08] LABS: Basophils # (A) 0.04 X 10*3/uL (0.00-0.10); Basophils % (A) 0.9 %; Eosinophils # (A) 0.19 X 10*3/uL (0.04-0.35); Eosinophils % (A) 4.1 %; HGB 12.6 g/dL (13.0-17.0); Lymphocytes # (A) 0.61 X 10*3/uL (0.90-5.00); Lymphocytes % (A) 13.3 %; MCH 30.3 pg (27.0-32.0); MCHC 32.3 g/dL (32.0-37.0); MCV 93.8 fL (80.0-97.0); Mean Platelet Volume 10.6 fL (9.5-12.2); Monocytes # (A) 0.36 X 10*3/uL (0.20-1.00); Monocytes % (A) 7.8 %; Neutrophils # (A) 3.38 X 10*3/uL (1.80-7.70); Neutrophils % (A) 73.7 %; Platelet Count 198 X 10*3/uL (140-440); RBC 4.16 X 10*6/uL (4.40-5.60); RDW 15.4 % (11.5-14.5); WBC 4.59 X 10*3/uL (4.50-10.00)
[2021-09-22 21:06] LABS: Erythrocyte Sedimentation Rate 15 mm/Hr (0-20)
[2021-09-22 22:47] LABS: % Iron Saturation 19.06 (15.00-50.00); ALT 11 U/L (10-49); AST 13 U/L (14-35); African American GFR (CKD) 118.3 (60.0-200.0); Albumin 4.2 g/dL (3.8-4.9); Alkaline Phosphatase 80 U/L (41-126); BUN/Creat Ratio 10.19 Ratio (12.00-20.00); Blood Urea Nitrogen 8.1 mg/dL (9.0-27.0); Calcium 9.3 mg/dL (8.7-10.3); Carbon Dioxide 21.1 mmol/L (20.0-27.5); Chloride 103 mmol/L (96-109); Globulin 2.2 g/dL (1.6-3.3); Glucose 113 mg/dL (70-110); Iron 65 ug/dL (65-175); Non-African American GFR(CKD) 102.1 (60.0-200.0); Potassium 4.2 mmol/L (3.5-5.5); Sodium 139 mmol/L (135-145); Total Bilirubin <0.20 mg/dL (0.30-1.20); Total Iron Binding Capacity 342 ug/dL (228-460); Total Protein 6.4 g/dL (6.2-8.2)
[2021-09-24 07:35] LABS: Herpes simplex I and/or II IgM 0.69 INDEX (<=0.90); Herpes simplex IgG I Ab 28.3 (< or = 0.90); Herpes simplex IgG II Ab 0.21 (< or = 0.90)
== END | disposition home or self-care (01) ==
LOC: LABWHC1 14:26
PROVIDERS: ATTEND Internal Medicine
DX: G89.29 Other chronic pain (principal); R53.83 Other fatigue; E03.9 Hypothyroidism, unspecified; B99.9 Unspecified infectious disease; D50.9 Iron deficiency anemia, unspecified; M60.9 Myositis, unspecified; N41.9 Inflammatory disease of prostate, unspecified
CPT/HCPCS: 36415; 80053; 82728; 83540; 83550; 83735; 84153; 84305; 84402; 84403; 84439; 84443; 85025; 85652; 86694; 86695; 86696

== ENCOUNTER 2022-01-31 15:15 | Emergency (ER) | payer BC ==
--- NOTE | 2022-02-01 01:10 | ED ---
General Adult HPI - General Chief complaint: Recheck/Abnormal Lab/Rx Stated complaint: Pic Line Problem Time Seen by Provider: 02/01/22 00:13 Source: patient, RN notes reviewed Mode of arrival: ambulatory Limitations: no limitations - History of Present Illness Initial comments: 51-year-old male presents to the emergency department for requesting a dressing change to the PICC line located in his left upper extremity. Patient states the PICC line was placed 3-4 weeks ago and [place] and is to be utilized for infusions to treat fibromyalgia. Patient states he had an emergency in [place] therefore had to return here and has not followed up with his provider in [place] for ongoing care. States his last dressing change was 7 days ago, however he has been flushing the PICC line with saline as he was instructed. Denies any pain or discomfort at the insertion site. No fever, chills, headache, chest pain, shortness of breath, nausea, vomiting, diarrhea, dysuria, or hematuria. - Related Data Home Medications Medication Instructions Recorded Confirmed Gabapentin [Neurontin] 800 mg PO TID 10/22/14 06/15/21 Baclofen [Lioresal] 10 - 20 mg PO QID PRN 04/19/17 06/15/21 Zolpidem Tartrate [Ambien] 10 mg PO HS 04/19/17 06/15/21 traMADol HCl [Ultram] 100 mg PO TID 03/09/21 06/15/21 traZODone HCL 100 mg PO HS 03/09/21 06/15/21 Famotidine 40 mg PO DAILY PRN 06/15/21 06/15/21 Valganciclovir HCl 900 mg PO DAILY 06/15/21 06/15/21 Allergies Allergy/AdvReac Type Severity Reaction Status Date / Time Penicillins Allergy Rash/Hives Verified 01/31/22 16:34 Review of Systems ROS Statement: Those systems with pertinent positive or pertinent negative responses have been documented in the HPI. ROS Other: All systems not noted in ROS Statement are negative. Past Medical History Past Medical History: No Reported History Additional Past Medical History / Comment(s): alcoholism, prostate cancer, fibromyalgia History of Any Multi-Drug Resistant Organisms: MRSA Date of last positivie culture/infection: 2007 MDRO Source:: abdomen Past Surgical History: Cholecystectomy, Tonsillectomy Additional Past Surgical History / Comment(s): abdominal sx Past Psychological History: Anxiety, Bipolar, Depression Smoking Status: Current every day smoker Past Alcohol Use History: Abuse Past Drug Use History: Marijuana, Opiates, Prescription Drug Abuse General Exam Limitations: no limitations (Well-developed, well-nourished male in no acute distress) General appearance: alert, in no apparent distress Neck exam: Present: normal inspection. Absent: tenderness, meningismus, lymphadenopathy Respiratory exam: Present: normal lung sounds bilaterally. Absent: respiratory distress, wheezes, rales, rhonchi, stridor, chest wall tenderness Cardiovascular Exam: Present: regular rate, normal rhythm, normal heart sounds. Absent: systolic murmur, diastolic murmur, rubs, gallop, clicks GI/Abdominal exam: Present: soft, normal bowel sounds. Absent: distended, tenderness, guarding, rebound, rigid Left General: Present: normal inspection Upper Arm exam: Present: full ROM, other (PICC line present in the LUE. Patient has trimmed the dressing and reinforced it with bandaids. Does have mild erythema around the dressing which appears to be sensitivity to adhesive. There is no erythema, heat, or evidence of infection at insertion site.). Absent: tenderness, swelling, erythema Elbow exam: Present: normal inspection, full ROM Vascular: Present: normal capillary refill, radial pulse, brachial pulse, ulnar pulse. Absent: vascular compromise Neurological exam: Present: alert, oriented X3, CN II-XII intact Psychiatric exam: Present: normal affect, normal mood Skin exam: Present: warm, dry, intact, normal color Course Vital Signs 01/31/22 02/01/22 16:32 01:49 Temperature 98.4 F 97.7 F Pulse Rate 67 79 Respiratory 16 20 Rate Blood Pressure 128/69 138/78 O2 Sat by Pulse 96 98 Oximetry Medical Decision Making - Medical Decision Making 51-year-old male with a past medical history of fibromyalgia and prostate cancer presents to the emergency department requesting a dressing change to his PICC line located in the left upper extremity. Upon exam, patient is well-appearing and in no acute distress. Vital signs are stable. He is afebrile. PICC inser tion site appears non-erythematous with no evidence of infection. Able to withdraw 10 mL of blood and flushed easily with 20 mL of saline. Old dressing was removed. Site was cleansed per protocol and fresh dressing was applied. Instructed on appropriate follow-up care. Return parameters discussed in detail. Patient verbalizes understanding and agrees with this plan. Attending: Ap. Disposition Clinical Impression: Change of dressing Disposition: HOME SELF-CARE Condition: Stable Instructions (If sedation given, give patient instructions): How to Care for Your PICC (Peripherally Inserted Central Catheter) (ED) Additional Instructions: Continue to care for your PICC line dressing as directed by your provider. Do your best to keep the area clean, dry, and intact. Call tomorrow to discuss further plan of care. Return to the emergency department with any new, worsening, or concerning symptoms. Is patient prescribed a controlled substance at d/c from ED?: No Referrals: Ye Howe MD [Primary Care Provider] - 1-2 days Time of Disposition: 01:10
[2022-02-01 01:50] VITALS: BP 138/78; PULSE 79; RESP 20; TEMP 97.7
== END 2022-02-01 01:50 | disposition home or self-care (01) ==
LOC: EC 15:15
DX: Z48.01 Encounter for change or removal of surgical wound dressing (principal); F41.9 Anxiety disorder, unspecified; F31.9 Bipolar disorder, unspecified; F17.200 Nicotine dependence, unspecified, uncomplicated; F12.90 Cannabis use, unspecified, uncomplicated; Z88.0 Allergy status to penicillin; Z85.46 Personal history of malignant neoplasm of prostate; Z90.49 Acquired absence of other specified parts of digestive tract
CPT/HCPCS: 99282

== ENCOUNTER 2024-05-31 11:15 | Emergency (ER) | payer BC | END 2024-05-31 13:45 | disposition home or self-care (01) | LOC: EC 11:15 | DX: C61 Malignant neoplasm of prostate (principal) ==

== ENCOUNTER → 2024-06-27 | Outpatient (CLI) | payer BC ==
--- NOTE | 2024-06-27 17:03 | PE ---
EXAMINATION TYPE: PET CT fusion skull to thigh DATE OF EXAM: 06/27/2024 CLINICAL INDICATION:Male, 53 years old with history of C61 MALIGNANT NEOPLASM OF PROSTATE; TECHNIQUE: Following the intravenous administration of 5.46 mCi of Ga-68 Illuccix (PSMA), whole bod y images are performed from the skull base to the midthigh. Images are reviewed on the computer in t he coronal, axial, and sagittal planes. Reconstructed rotating images are created on independent wor kstation and reviewed on the computer. A non-contrast CT is performed in conjunction with the PET s can. CT DLP: 317.69 mGycm, Automated exposure control for dose reduction was used. COMPARISON: CT 04/01/2021, PET/CT None, MRI: None, nuclear medicine bone scan 12/23/2020 FINDINGS: Limited evaluation due to lack of intravenous contrast and paucity of intra-abdominal fat. Mediastinal SUV mean is 1.2. Hepatic parenchyma SUV mean is 3.7. SKULL BASE AND NECK: Single focus of radiotracer uptake within the left supra clavicular within a nonenlarged lymph node w ith a maximum SUV of 12.0. CHEST, MEDIASTINUM, AND HILAR REGION: Left paratracheal nonenlarged lymph node with focus of radiotracer uptake with a maximum SUV of 12.0. Single nonenlarged periaortic nonenlarged lymph node with a maximum SUV of 23. Enlarged 1.3 cm paraesophageal lymph node with a maximum SUV of 34.4 (series 3, image 168). ABDOMEN AND PELVIS: Multiple retroperitoneal periaortic nonenlarged and enlarged lymph nodes with radiotracer uptake. Examples include left periaortic enlarged lymph node measuring 2.9 cm with a maximum SUV of 33.4. Left para-aortic enlarged lymph node node measuring 2.7 cm with a maximum SUV of 35.4. Enlarged bilateral iliac chain lymph nodes with a maximum SUV on the left of 22 and a max SUV on the right of 19.2. Radiotracer uptake identified in the region of the prostate with a maximum SUV of 40. Additional radi otracer uptake identified symmetrically within the region of the seminal vesicles with a maximum SUV of 18.9. MUSCULOSKELETAL STRUCTURES: Bilateral posterior seventh rib focal FDG activity without CT evidence of lesion. The right measures a maximum SUV of 15 and the left measures a maximum SUV of 12.4. OTHER CT: Bilateral carotid bulb calcifications. Small coronary artery calcifications. Postcholecyste ctomy changes. Hyperdense exophytic left mid kidney 1.9 cm lesion redemonstrated consistent with a hy perdense cyst. Mild left hydronephrosis. No obvious obstructing calculus. Pelvic phleboliths. Diffuse anasarca. Increased asymmetric anasarca involving the visualized left lower extremity. Scrotal edema . Atherosclerotic calcification of the aorta and its branches. Healing bilateral rib fractures with c allus formation identified. Involve the anterior right 3-6 ribs. And the left anterior lateral 3-7 ri bs. Acute/subacute appearing mildly displaced fracture of the left L4 transverse process without call us formation. Remote healed right distal clavicular fracture. IMPRESSION: 1. Findings of malignancy within the region of the prostate gland/seminal vesicles with intense radi otracer uptake. Metastatic disease identified with radiotracer uptake involving multiple enlarged and nonenlarged bilateral iliac chain, retroperitoneal, mediastinal and left supraclavicular lymph nodes . 2. Bilateral posterior seventh rib focal regions of radiotracer uptake without CT evidence of lesion . Raises concern for osseous metastasis. Consider further evaluation with nuclear medicine bone scan as clinically indicated. 3. Healing bilateral rib fractures with callus summation. Acute/subacute appearing mildly displaced left L4 transverse process fracture. No corresponding radiotracer uptake. 4. Mild left hydronephrosis without definitive obstructing calculus. 5. Diffuse anasarca with asymmetrically increased left lower extremity anasarca. [facility], , 06/27/2024 5:00 PM
== END | disposition home or self-care (01) ==
LOC: RADPETMAIN 13:55
PROVIDERS: ATTEND Internal Medicine Hematology & Oncology
DX: S22.43XA Multiple fractures of ribs, bilateral, initial encounter for closed fracture (principal); S32.049A Unspecified fracture of fourth lumbar vertebra, initial encounter for closed fracture; C77.0 Secondary and unspecified malignant neoplasm of lymph nodes of head, face and neck; C61 Malignant neoplasm of prostate; N13.30 Unspecified hydronephrosis; R60.1 Generalized edema; Z85.46 Personal history of malignant neoplasm of prostate
CPT/HCPCS: 78815; A9596

== ENCOUNTER 2025-02-04 11:35 | Inpatient (IN) | payer BC ==
--- NOTE | 2025-02-04 12:48 | ED ---
Weakness HPI - General Chief complaint: Weakness Stated complaint: Weakness Time Seen by Provider: 02/04/25 12:47 Source: patient, RN notes reviewed, old records reviewed, Caregiver Limitations: no limitations - History of Present Illness Initial comments: This is a 54-year-old male to the ER for evaluation of weakness. Patient has significant comorbid conditions stage V prostate cancer with multiple contributing factors, patient has nephrostomy tube, able to urinate stooling himself weak, not significantly altered in his mental status. Patient is just on long recent car trip where he was trying to get specialized treatment in [place] but she was unsuccessful at his succeeding to achieve. MD Complaint: generalized weakness, lack of energy -: days(s) Location: generalized Severity: severe Severity scale (1-10): 10 Consistency: constant Improves with: none Worsens with: morning Context: history of similar Associated Symptoms: confusion - Related Data Home Medications Medication Instructions Recorded Confirmed Gabapentin [Neurontin] 300 mg PO BID 02/04/25 02/04/25 Sennosides/Docusate Sodium [Senna 2 cap PO DAILY PRN 02/04/25 02/04/25 Plus 8.6-50 mg Softgel] Sodium Bicarbonate Tab 1,300 mg PO QID 02/04/25 02/04/25 Tamsulosin [Flomax] 0.4 mg PO DIRECTED 02/04/25 02/04/25 oxyCODONE HCL [OxyIR] 5 mg PO TID PRN 02/04/25 02/04/25 traZODone HCL [Desyrel] 50 mg PO HS 02/04/25 02/04/25 Allergies Allergy/AdvReac Type Severity Reaction Status Date / Time Penicillins Allergy Rash/Hives Verified 02/04/25 13:36 Review of Systems ROS Statement: Those systems with pertinent positive or pertinent negative responses have been documented in the HPI. ROS Other: All systems not noted in ROS Statement are negative. Past Medical History Past Medical History: Cancer Additional Past Medical History / Comment(s): prostate cancer, fibromyalgia.CHRONIC PAIN History of Any Multi-Drug Resistant Organisms: MRSA Date of last positivie culture/infection: 2007 MDRO Source:: abdomen Past Surgical History: Cholecystectomy, Tonsillectomy Additional Past Surgical History / Comment(s): abdominal sx Past Anesthesia/Blood Transfusion Reactions: No Reported Reaction Past Psychological History: Anxiety Smoking Status: Former smoker General Exam Limitations: no limitations General appearance: alert, in no apparent distress Head exam: Present: atraumatic, normocephalic, normal inspection Eye exam: Present: normal appearance, PERRL, EOMI. Absent: scleral icterus, conjunctival injection, periorbital swelling ENT exam: Present: normal exam, mucous membranes moist Neck exam: Present: normal inspection. Absent: tenderness, meningismus, lymphad enopathy Respiratory exam: Present: normal lung sounds bilaterally. Absent: respiratory distress, wheezes, rales, rhonchi, stridor Cardiovascular Exam: Present: regular rate, normal rhythm, normal heart sounds. Absent: systolic murmur, diastolic murmur, rubs, gallop, clicks GI/Abdominal exam: Present: soft, normal bowel sounds. Absent: distended, tenderness, guarding, rebound, rigid Extremities exam: Present: normal inspection, full ROM, normal capillary refill. Absent: tenderness, pedal edema, joint swelling, calf tenderness Back exam: Present: normal inspection Neurological exam: Present: alert, oriented X3, CN II-XII intact Psychiatric exam: Present: normal affect, normal mood Skin exam: Present: warm, dry, intact, normal color. Absent: rash Course Vital Signs 02/04/25 02/04/25 11:49 14:36 Temperature 98.7 F Pulse Rate 52 L 71 Respiratory 18 18 Rate Blood Pressure 99/55 104/68 O2 Sat by Pulse 98 99 Oximetry - Reevaluation(s) Reevaluation #1: 02/04/25 14:14 Medical records reviewed Reevaluation #2: 02/04/25 15:32 Patient has no real change in symptoms here in the ER pain control Reevaluation #3: 02/04/25 15:32 Patient informed of results and questions answered Reevaluation #4: Was pt. sent in by a medical professional or institution (, PA, INVESTIGATIVE REPORTER, urgent care, hospital, or fdc...) When possible be specific @ -no Did you speak to anyone other than the patient for history (EMS, parent, family, police, friend...)? What history was obtained from this source @ -no Did you review nursing and triage notes (agree or disagree)? Why? @ -agree Are old charts reviewed (outside hosp., previous admission, EMS record, old EKG, old radiological studies, urgent care reports/EKG's, fdc records)? Report findings @ -yes Differential Diagnosis (chest pain, altered mental status, abdominal pain women, abdominal pain men, vaginal bleeding, weakness, fever, dyspnea, syncope, headache, dizziness, GI bleed, back pain, seizure, CVA, palpatations, mental health, musculoskeletal)? @ -prior EKG interpreted by me (3pts min.). @ -yes X-rays interpreted by me (1pt min.). @ -yes negative for acute disease CT interpreted by me (1pt min.). @ -no U/S interpreted by me (1pt. min.). @ -no What testing was considered but not performed or refused? (CT, X-rays, U/S, labs)? Why? @ -none What meds were considered but not given or refused? Why? @ -none Did you discuss the management of the patient with other professionals (professionals i.e. , PA, INVESTIGATIVE REPORTER, lab, RT, psych nurse, social work administrator, communications project manager, teacher, special service officer, director case)? Give summary @ -no Was smoking cessation discussed for >3mins.? @ -no Was critical care preformed (if so, how long)? @ -no Were there social determinants of health that impacted care today? How? (Homelessness, low income, unemployed, alcoholism, drug addiction, transportation, low edu. Level, literacy, decrease access to med. care, assisted, rehab)? @ -none Was there de-escalation of care discussed even if they declined (Discuss DNR or withdrawal of care, Hospice)? DNR status @ -no What co-morbidities impacted this encounter? (DM, HTN, Smoking, COPD, CAD, Cancer, CVA, ARF, Chemo, Hep., AIDS, mental health diagnosis, sleep apnea, morbid obesity)? @ -none Was patient admitted / discharged? Hospital course, mention meds given and route, prescriptions, significant lab abnormalities, going to OR and other pertinent info. @ - Undiagnosed new problem with uncertain prognosis? @ -no Drug Therapy requiring intensive monitoring for toxicity (Heparin, Nitro, Insulin, Cardizem)? @ -no Were any procedures done? @ -no Diagnosis/symptom? @ - Acute, or Chronic, or Acute on Chronic? @ -Acute Uncomplicated (without systemic symptoms) or Complicated (systemic symptoms)? @ -Complicated Side effects of treatment? @ -no Exacerbation, Progression, or Severe Exacerbation? @ -exacerbation Poses a threat to life or bodily function? How? (Chest pain, USA, VA, pneumonia, PE, COPD, DKA, ARF, appy, cholecystitis, CVA, Diverticulitis, Homicidal, Suicidal, threat to staff... and all critical care pts) @ -yes Reevaluation #5: Differential Weakness: Hypoglycemia, shock, sepsis, hyponatremia, anemia, infection, VA, ETOH, adverse medicine reaction, overdose, stroke, this is not meant to be an all-inclusive list. - Consultations Consultation #1: Hospice patient did have evaluation here in the emergency department Consultation #2: Spoke with [facility] who agrees to admit this patient EKG Findings - EKG Comments: EKG Findings:: EKG is sinus 87 WI 131 QRS 112 QTc 422 - EKG Results: EKG: interpreted by RULA Medical Decision Making - Medical Decision Making 54 male to the ER for evaluation this patient presents today for evaluation regards to failure to thrive and weakness need to transition to hospice in comfort care - Lab Data Result diagrams: 02/04/25 13:09 02/04/25 13:09 Lab Results 02/04/25 02/04/25 02/04/25 Range/Units 13:09 13:09 13:09 WBC 8.04 (4.50-10.00) 10*3/uL RBC 2.68 L (4.40-5.60) 10*6/uL Hgb 8.2 L (13.0-17.0) g/dL Hct 24.7 L (39.6-50.0) % MCV 92.2 (80.0-97.0) fL MCH 30.6 (27.0-32.0) pg MCHC 33.2 (32.0-37.0) g/dL Plt Count 273 (140-440) 10*3/uL MPV 9.3 L (9.5-12.2) fL Immature Gran % (Auto) 1.4 % Neutrophils % 86.9 % Lymphocytes % 6.0 % Monocytes % 3.5 % Eosinophils % 1.2 % Basophils % 1.0 % Immature Gran # 0.11 H (0.00-0.04) 10*3/uL Neutrophils # 6.99 (1.80-7.70) 10*3/uL Lymphocytes # 0.48 L (0.90-5.00) 10*3/uL Monocytes # 0.28 (0.20-1.00) 10*3/uL Eosinophils # 0.10 (0.04-0.35) 10*3/uL Basophils # 0.08 (0.00-0.10) 10*3/uL PT 10.8 (10.0-12.5) sec INR 1.0 (<1.2) APTT 22.7 (22.0-30.0) sec Sodium (137-145) mmol/L Potassium (3.5-5.1) mmol/L Chloride (98-107) mmol/L Carbon Dioxide (22-30) mmol/L Anion Gap mmol/L BUN (9-20) mg/dL Creatinine (0.66-1.25) mg/dL Est GFR (CKD-EPI)AfAm (>60 ml/min/1.73 sqM) Est GFR (CKD-EPI)NonAf (>60 ml/min/1.73 sqM) Glucose (74-99) mg/dL Plasma Lactic Acid Eric (0.7-2.0) mmol/L Calcium (8.4-10.2) mg/dL Phosphorus (2.5-4.5) mg/dL Magnesium (1.6-2.3) mg/dL Total Bilirubin (0.2-1.3) mg/dL AST (17-59) U/L ALT (4-49) U/L Alkaline Phosphatase (38-126) U/L Troponin I (0.000-0.034) ng/mL NT-Pro-B Natriuret Pep pg/mL Total Protein (6.3-8.2) g/dL Albumin (3.5-5.0) g/dL TSH (0.465-4.680) mIU/L Free T4 (0.78-2.19) ng/dL Urine Color Light Red Urine Appearance Turbid (Clear) Urine pH 5.5 (5.0-8.0) Ur Specific [place] 1.019 (1.001-1.035) Urine Protein 2+ H (Negative) Urine Glucose (UA) Negative (Negative) Urine Ketones Negative (Negative) Urine Blood Large H (Negative) Urine Nitrite Negative (Negative) Urine Bilirubin Negative (Negative) Urine Urobilinogen <2.0 (<2.0) mg/dL Ur Leukocyte Esterase Large H (Negative) Urine RBC >182 H (0-5) /hpf Urine WBC >182 H (0-5) /hpf Urine WBC Clumps Many H (None) /hpf Urine Mucus Rare H (None) /hpf 02/04/25 02/04/25 02/04/25 Range/Units 13:09 13:09 13:09 WBC (4.50-10.00) 10*3/uL RBC (4.40-5.60) 10*6/uL Hgb (13.0-17.0) g/dL Hct (39.6-50.0) % MCV (80.0-97.0) fL MCH (27.0-32.0) pg MCHC (32.0-37.0) g/dL Plt Count (140-440) 10*3/uL MPV (9.5-12.2) fL Immature Gran % (Auto) % Neutrophils % % Lymphocytes % % Monocytes % % Eosinophils % % Basophils % % Immature Gran # (0.00-0.04) 10*3/uL Neutrophils # (1.80-7.70) 10*3/uL Lymphocytes # (0.90-5.00) 10*3/uL Monocytes # (0.20-1.00) 10*3/uL Eosinophils # (0.04-0.35) 10*3/uL Basophils # (0.00-0.10) 10*3/uL PT (10.0-12.5) sec INR (<1.2) APTT (22.0-30.0) sec Sodium 132 L (137-145) mmol/L Potassium 3.9 (3.5-5.1) mmol/L Chloride 96 L (98-107) mmol/L Carbon Dioxide 24 (22-30) mmol/L Anion Gap 12 mmol/L BUN 49 H (9-20) mg/dL Creatinine 2.99 H (0.66-1.25) mg/dL Est GFR (CKD-EPI)AfAm 26 (>60 ml/min/1.73 sqM) Est GFR (CKD-EPI)NonAf 22 (>60 ml/min/1.73 sqM) Glucose 91 (74-99) mg/dL Plasma Lactic Acid Eric 1.3 (0.7-2.0) mmol/L Calcium 9.9 (8.4-10.2) mg/dL Phosphorus 3.6 (2.5-4.5) mg/dL Magnesium 1.9 (1.6-2.3) mg/dL Total Bilirubin 0.5 (0.2-1.3) mg/dL AST 46 (17-59) U/L ALT 13 (4-49) U/L Alkaline Phosphatase 72 (38-126) U/L Troponin I <0.012 (0.000-0.034) ng/mL NT-Pro-B Natriuret Pep 1320 pg/mL Total Protein 6.2 L (6.3-8.2) g/dL Albumin 3.4 L (3.5-5.0) g/dL TSH 26.600 H (0.465-4.680) mIU/L Free T4 (0.78-2.19) ng/dL Urine Color Urine Appearance (Clear) Urine pH (5.0-8.0) Ur Specific [place] (1.001-1.035) Urine Protein (Negative) Urine Glucose (UA) (Negative) Urine Ketones (Negative) Urine Blood (Negative) Urine Nitrite (Negative) Urine Bilirubin (Negative) Urine Urobilinogen (<2.0) mg/dL Ur Leukocyte Esterase (Negative) Urine RBC (0-5) /hpf Urine WBC (0-5) /hpf Urine WBC Clumps (None) /hpf Urine Mucus (None) /hpf 02/04/25 Range/Units 13:09 WBC (4.50-10.00) 10*3/uL RBC (4.40-5.60) 10*6/uL Hgb (13.0-17.0) g/dL Hct (39.6-50.0) % MCV (80.0-97.0) fL MCH (27.0-32.0) pg MCHC (32.0-37.0) g/dL Plt Count (140-440) 10*3/uL MPV (9.5-12.2) fL Immature Gran % (Auto) % Neutrophils % % Lymphocytes % % Monocytes % % Eosinophils % % Basophils % % Immature Gran # (0.00-0.04) 10*3/uL Neutrophils # (1.80-7.70) 10*3/uL Lymphocytes # (0.90-5.00) 10*3/uL Monocytes # (0.20-1.00) 10*3/uL Eosinophils # (0.04-0.35) 10*3/uL Basophils # (0.00-0.10) 10*3/uL PT (10.0-12.5) sec INR (<1.2) APTT (22.0-30.0) sec Sodium (137-145) mmol/L Potassium (3.5-5.1) mmol/L Chloride (98-107) mmol/L Carbon Dioxide (22-30) mmol/L Anion Gap mmol/L BUN (9-20) mg/dL Creatinine (0.66-1.25) mg/dL Est GFR (CKD-EPI)AfAm (>60 ml/min/1.73 sqM) Est GFR (CKD-EPI)NonAf (>60 ml/min/1.73 sqM) Glucose (74-99) mg/dL Plasma Lactic Acid Eric (0.7-2.0) mmol/L Calcium (8.4-10.2) mg/dL Phosphorus (2.5-4.5) mg/dL Magnesium (1.6-2.3) mg/dL Total Bilirubin (0.2-1.3) mg/dL AST (17-59) U/L ALT (4-49) U/L Alkaline Phosphatase (38-126) U/L Troponin I (0.000-0.034) ng/mL NT-Pro-B Natriuret Pep pg/mL Total Protein (6.3-8.2) g/dL Albumin (3.5-5.0) g/dL TSH (0.465-4.680) mIU/L Free T4 0.85 (0.78-2.19) ng/dL Urine Color Urine Appearance (Clear) Urine pH (5.0-8.0) Ur Specific [place] (1.001-1.035) Urine Protein (Negative) Urine Glucose (UA) (Negative) Urine Ketones (Negative) Urine Blood (Negative) Urine Nitrite (Negative) Urine Bilirubin (Negative) Urine Urobilinogen (<2.0) mg/dL Ur Leukocyte Esterase (Negative) Urine RBC (0-5) /hpf Urine WBC (0-5) /hpf Urine WBC Clumps (None) /hpf Urine Mucus (None) /hpf - EKG Data -: EKG Interpreted by Me Disposition Clinical Impression: Prostate cancer, ARF (acute renal failure), Dehydration, JOI (acute kidney injury), Weakness Disposition: ADMITTED IP TO THIS HOSP Condition: Fair Is patient prescribed a controlled substance at d/c from ED?: No Referrals: None,Stated [Primary Care Provider] - 1-2 days Time of Disposition: 15:30
[2025-02-04 13:16] LABS: Basophils # (A) 0.08 10*3/uL (0.00-0.10); Eosinophils % (A) 1.2 %; HCT 24.7 % (39.6-50.0); HGB 8.2 g/dL (13.0-17.0); Lymphocytes # (A) 0.48 10*3/uL (0.90-5.00); MCH 30.6 pg (27.0-32.0); MCHC 33.2 g/dL (32.0-37.0); MCV 92.2 fL (80.0-97.0); Mean Platelet Volume 9.3 fL (9.5-12.2); Monocytes # (A) 0.28 10*3/uL (0.20-1.00); Monocytes % (A) 3.5 %; Neutrophils # (A) 6.99 10*3/uL (1.80-7.70); Neutrophils % (A) 86.9 %; Platelet Count 273 10*3/uL (140-440); RBC 2.68 10*6/uL (4.40-5.60); RDW 14.5 % (11.5-14.5); WBC 8.04 10*3/uL (4.50-10.00)
[2025-02-04 13:27] LABS: Partial Thromboplastin Time 22.7 sec (22.0-30.0); Prothrombin Time 10.8 sec (10.0-12.5)
[2025-02-04 13:31] LABS: ALT 13 U/L (4-49); African American GFR (CKD) 26 (>60 ml/min/1.73 sqM); Albumin 3.4 g/dL (3.5-5.0); Anion Gap 12 mmol/L; Blood Urea Nitrogen 49 mg/dL (9-20); Calcium 9.9 mg/dL (8.4-10.2); Carbon Dioxide 24 mmol/L (22-30); Chloride 96 mmol/L (98-107); Glucose 91 mg/dL (74-99); Non-African American GFR(CKD) 22 (>60 ml/min/1.73 sqM); Sodium 132 mmol/L (137-145); Total Bilirubin 0.5 mg/dL (0.2-1.3); Total Protein 6.2 g/dL (6.3-8.2)
[2025-02-04 13:43] LABS: NT-Pro-B-Type Natriuretic Pept 1320 pg/mL
[2025-02-04 13:44] LABS: Magnesium 1.9 mg/dL (1.6-2.3); Phosphorus 3.6 mg/dL (2.5-4.5); Potassium 3.9 mmol/L (3.5-5.1)
[2025-02-04 13:45] LABS: AST 46 U/L (17-59); Alkaline Phosphatase 72 U/L (38-126); Appearance,Urine Turbid (Clear); Bilirubin,Urine Negative (Negative); Blood,Urine Large (Negative); Color,Urine Light Red; Glucose,Urine (UA) Negative (Negative); Ketones,Urine Negative (Negative); Leukocyte Esterase,Urine Large (Negative); Mucus,Urine Rare /hpf; Nitrite,Urine Negative (Negative); PH, Urine 5.5 (5.0-8.0); Protein,Urine 2+ (Negative); RBC,Urine >182 /hpf (0-5); Specific Gravity,Urine 1.019 (1.001-1.035); Urobilinogen,Urine <2.0 mg/dL (<2.0); WBC,Urine >182 /hpf (0-5)
--- NOTE | 2025-02-04 14:08 | XR ---
EXAMINATION TYPE: XR chest 2V DATE OF EXAM: 02/04/2025 1:54 PM COMPARISON: 11/14/2024 CLINICAL INDICATION: Male, 54 years old with history of Weakness: Shortness of breath TECHNIQUE: XR chest 2V views of the chest are obtained. FINDINGS: Scattered senescent parenchymal changes noted. Hyperinflation compatible with COPD. Right mid lung zone peripheral infiltrate noted. Correlate for underlying pneumonia. Heart size is stable. Mediastinal structures are stable and grossly unremarkable. No evidence for hilar prominence. Degenerative changes dorsal spine. IMPRESSION: 1. Right mid lung zone peripheral infiltrate noted. Correlate for underlying pneumonia. [facility], , 02/04/2025 2:06 PM
[2025-02-04] MEDS: SODIUM CHLORIDE 0.9% 1,000 ML IV ONE (14:39)
[2025-02-04] MEDS: HYDROmorphone 2 MG/ML 1 ML SYRINGE IVP STA (14:47)
[2025-02-04] MEDS ORDERED: HYDROmorphone 2 MG/ML 1 ML SYRINGE IVP PRN (15:30)
[2025-02-04] MEDS ORDERED: NALOXONE 0.4 MG/ML 1 ML VIAL IV PRN (15:30)
[2025-02-04] MEDS ORDERED: ONDANSETRON 4 MG/2 ML VIAL IVP PRN (15:30)
[2025-02-04] MEDS ORDERED: LORazepam 1 MG TAB PO PRN (15:30)
[2025-02-04] MEDS: SODIUM CHLORIDE 0.9% 1,000 ML IV SCH (16:12)
[2025-02-04] MEDS: PANTOPRAZOLE 40 MG/10 ML VIAL IV SCH (16:13)
[2025-02-04] MEDS ORDERED: HYDROmorphone 1 MG/ML 1 ML SYRINGE IVP PRN (20:42)
[2025-02-04 20:59] VITALS: BP 146/85; PULSE 97; RESP 16; TEMP 97.8
--- NOTE | 2025-02-05 15:51 | P.HPIM ---
History of Present Illness H&P Date: 02/05/25 This is a pleasant 54-year-old male who presented to the emergency department for significant weakness and a hospice consult as patient has significant past medical history of stage V prostate cancer with metastasis along with chronic pain. Patient does not currently have a primary care provider here he reports as he was living in [place] for quite some time seeking alternative treatment and recently came back from [place] with family having increased amounts of pain, mostly wheelchair-bound and progressively becoming more weak. Patient and family did meet with [facility] and is planning on going home with hospice services today. Patient does have any significant past medical history as mentioned previously of prostate cancer with metastasis, fibromyalgia, chronic pain, anxiety, former smoker, occasionally drinks beer and uses marijuana on occasion and denies any other illicit drugs. Patient had been receiving Lupron injections outpatient and has not been reevaluated here for quite some time per previous documents noted in the chart. Patient is requesting if he can have a Lupron injection while here and this is done outpatient and cannot be done while inpatient and this was explained to family along with patient. [facility] making arrangements to get the home ready and will be going home today. Overall poor prognosis. Patient reports he is unsure if he will be returning to [place] for further treatment and has not made a final decision but would like to go home with hospice services today. Family are agreeable and has good contact and support system. REVIEW OF SYSTEMS: CONSTITUTIONAL: No fever, no malaise, reports of fatigue. HEENT: No recent visual problems or hearing problems. Denied any sore throat. CARDIOVASCULAR: No chest pain, orthopnea, PND, no palpitations, no syncope. PULMONARY: Reports of occasional shortness of breath, no cough, no hemoptysis. GASTROINTESTINAL: No diarrhea, no nausea, no vomiting, reports abdominal pain with poor oral intake NEUROLOGICAL: No headaches, reports significant weakness, no numbness. HEMATOLOGICAL: Denies any bleeding or petechiae. GENITOURINARY: Denies any burning micturition, frequency, or urgency. MUSCULOSKELETAL/RHEUMATOLOGICAL: Reports multiple areas of joint pain, swelling, or any muscle pain. ENDOCRINE: Denies any polyuria or polydipsia. The rest of the 14-point review of systems is negative. PHYSICAL EXAMINATION: GENERAL: The patient is alert and oriented x3, not in any acute distress. Well developed, ill-appearing, elderly appearing, unwell, cachectic with significant muscle wasting noted HEENT: Pupils are round and equally reacting to light. EOMI. No scleral icterus. No conjunctival pallor. Normocephalic, atraumatic. No pharyngeal erythema. No thyromegaly. CARDIOVASCULAR: S1 and S2 present. No murmurs, rubs, or gallops. PULMONARY: Chest is clear to auscultation, no wheezing or crackles. ABDOMEN: Soft, nontender, nondistended, normoactive bowel sounds. No palpable organomegaly. MUSCULOSKELETAL: No joint swelling or deformity. EXTREMITIES: No cyanosis, clubbing, or pedal edema. Significant bilateral lower extremity edema 2+ pitting NEUROLOGICAL: Gross neurological examination did not reveal any focal deficits. Diffusely weak SKIN: No rashes. Pale, dry Assessment: Prostate cancer, stage V with metastasis History of fibromyalgia with chronic pain Acute renal failure, acute tubular necrosis with poor oral intake History of anxiety Former smoker THC use GI prophylaxis DVT prophylaxis No code Plan: Patient was admitted last night from the ER with acute renal failure and uncontrolled pain with significant stage V metastatic prostate cancer and had met with Ayse gomez last night and was GIP appropriate and patient was flipped to GIP status although this morning on reevaluation patient is much more awake and alert and would like to go home with hospice services. Patient is agreeable and family agreeable as well and will be going home today after arrangements are made The impression and plan of care has been dictated by Erin Dockery, Nurse Practitioner as directed. Dr. Latrice MD I have performed a history and examination and MDM of this patient, discussed the same with the dictator, and agree with the dictator's assessment and plan as written ,documented as a scribe. Based on total visit time, I have performed more than 50% of the visit. Past Medical History Past Medical History: Cancer Additional Past Medical History / Comment(s): prostate cancer, fibromyalgia.CHRONIC PAIN History of Any Multi-Drug Resistant Organisms: MRSA Date of last positivie culture/infection: 2007 MDRO Source:: abdomen Past Surgical History: Cholecystectomy, Tonsillectomy Additional Past Surgical History / Comment(s): abdominal sx Past Anesthesia/Blood Transfusion Reactions: No Reported Reaction Past Psychological History: Anxiety Smoking Status: Former smoker Medications and Allergies Home Medications Medication Instructions Recorded Confirmed Type Gabapentin [Neurontin] 300 mg PO BID 02/04/25 02/05/25 History Sennosides/Docusate Sodium [Senna 2 cap PO DAILY PRN 02/04/25 02/05/25 History Plus 8.6-50 mg Softgel] Sodium Bicarbonate Tab 1,300 mg PO QID 02/04/25 02/05/25 History Tamsulosin [Flomax] 0.4 mg PO DIRECTED 02/04/25 02/05/25 History oxyCODONE HCL [OxyIR] 5 mg PO TID PRN 02/04/25 02/05/25 History traZODone HCL [Desyrel] 50 mg PO HS 02/04/25 02/05/25 History Allergies Allergy/AdvReac Type Severity Reaction Status Date / Time Penicillins Allergy Rash/Hives Verified 02/05/25 08:20 Physical Exam Vitals: Vital Signs Temp Pulse Pulse Resp BP BP Pulse Ox 02/04/25 20:40 97.8 F 97 16 146/85 99 02/04/25 18:30 70 18 113/75 97 Results CBC & Chem 7: 02/04/25 13:09 02/04/25 13:09
--- NOTE | 2025-02-05 15:53 | P.DS ---
Providers Date of admission: 02/04/25 15:53 Expected date of discharge: 02/05/25 Attending physician: Trent Martel Primary care physician: Stated None Hospital Course: Final diagnosis Prostate cancer, stage V with metastasis History of fibromyalgia with chronic pain Acute renal failure, acute tubular necrosis with poor oral intake History of anxiety Former smoker THC use GI prophylaxis DVT prophylaxis No code Discharge disposition Patient is being discharged in a stable condition with overall poor and guarded prognosis to home with [facility] services. Total time taken is greater than 35 minutes. Hospital course This is a pleasant 54-year-old male who presented to the emergency department for significant weakness and a hospice consult as patient has significant past medical history of stage V prostate cancer with metastasis along with chronic pain. Patient does not currently have a primary care provider here he reports as he was living in [place] for quite some time seeking alternative treatment and recently came back from [place] with family having increased amounts of pain, mostly wheelchair-bound and progressively becoming more weak. Patient and family did meet with [facility] and is planning on going home with hospice services today. Patient does have any significant past medical history as mentioned previously of prostate cancer with metastasis, fibromyalgia, chronic pain, anxiety, former smoker, occasionally drinks beer and uses marijuana on occasion and denies any other illicit drugs. Patient had been receiving Lupron injections outpatient and has not been reevaluated here for quite some time per previous documents noted in the chart. Patient is requesting if he can have a Lupron injection while here and this is done outpatient and cannot be done while inpatient and this was explained to family along with patient. [facility] making arrangements to get the home ready and will be going home today. Overall poor prognosis. Patient reports he is unsure if he will be returning to [place] for further treatment and has not made a final decision but would like to go home with hospice services today. Family are agreeable and has good contact and support system. PHYSICAL EXAMINATION: GENERAL: The patient is alert and oriented x3, not in any acute distress. Well developed, ill-appearing, elderly appearing, unwell, cachectic with significant muscle wasting noted HEENT: Pupils are round and equally reacting to light. EOMI. No scleral icterus. No conjunctival pallor. Normocephalic, atraumatic. No pharyngeal erythema. No thyromegaly. CARDIOVASCULAR: S1 and S2 present. No murmurs, rubs, or gallops. PULMONARY: Chest is clear to auscultation, no wheezing or crackles. ABDOMEN: Soft, nontender, nondistended, normoactive bowel sounds. No palpable organomegaly. MUSCULOSKELETAL: No joint swelling or deformity. EXTREMITIES: No cyanosis, clubbing, or pedal edema. Significant bilateral lower extremity edema 2+ pitting NEUROLOGICAL: Gross neurological examination did not reveal any focal deficits. Diffusely weak SKIN: No rashes. Pale, dry 02/05/2025 Patient reevaluated with [facility] and patient is much more awake and alert and wanting to go home. [facility] services making arrangements for home with hospice and will be discharged later today. Patient denies chest pain or shortness of breath and is tolerating diet with decreased appetite although denies any nausea or vomiting. Patient will be going home with [facility] services The impression and plan of care has been dictated by Erin Dockery, Nurse Practitioner as directed. Dr. Latrice MD I have performed a history and examination and MDM of this patient, discussed the same with the dictator, and agree with the dictator's assessment and plan as written ,documented as a scribe. Based on total visit time, I have performed more than 50% of the visit. Patient Condition at Discharge: Fair Plan - Discharge Summary New Discharge Prescriptions: No Action Sennosides/Docusate Sodium [Senna Plus 8.6-50 mg Softgel] 2 cap PO DAILY PRN PRN Reason: Constipation traZODone HCL [Desyrel] 50 mg PO HS Tamsulosin [Flomax] 0.4 mg PO DIRECTED Sodium Bicarbonate Tab 1,300 mg PO QID oxyCODONE HCL [OxyIR] 5 mg PO TID PRN PRN Reason: Pain Gabapentin [Neurontin] 300 mg PO BID Discharge Medication List Gabapentin [Neurontin] 300 mg PO BID 02/04/25 [History] Sennosides/Docusate Sodium [Senna Plus 8.6-50 mg Softgel] 2 cap PO DAILY PRN [History] Sodium Bicarbonate Tab 1,300 mg PO QID 02/04/25 [History] Tamsulosin [Flomax] 0.4 mg PO DIRECTED 02/04/25 [History] oxyCODONE HCL [OxyIR] 5 mg PO TID PRN 02/04/25 [History] traZODone HCL [Desyrel] 50 mg PO HS 02/04/25 [History] Follow up Appointment(s)/Referral(s): None,Stated [Primary Care Provider] - 1-2 days Discharge [facility]
== END 2025-02-04 21:07 | disposition hospice, inpatient (51) | DRG 684 ==
LOC: EC 11:35 → 5NMEDONC 15:53
PROVIDERS: ADMIT Hospitalist; ATTEND Hospitalist
DX: N17.9 Acute kidney failure, unspecified (principal); Z51.5 Encounter for palliative care; Z66 Do not resuscitate; R62.7 Adult failure to thrive; C61 Malignant neoplasm of prostate; E86.0 Dehydration; G89.29 Other chronic pain; F41.9 Anxiety disorder, unspecified; Z93.6 Other artificial openings of urinary tract status; M79.7 Fibromyalgia; Z68.24 Body mass index [BMI] 24.0-24.9, adult; Z87.891 Personal history of nicotine dependence; Z79.899 Other long term (current) drug therapy; Z86.14 Personal history of Methicillin resistant Staphylococcus aureus infection; Z88.0 Allergy status to penicillin
CPT/HCPCS: 36415; 71046; 80053; 81001; 83605; 83735; 83880; 84100; 84439; 84443; 84484; 85025; 85610; 85730; 93005; 96361; 96374; 96375; 99285

== ENCOUNTER 2025-02-04 21:01 | Inpatient (IN) | payer MEDICAID ==
[2025-02-04] MEDS ORDERED: ACETAMINOPHEN TAB 325 MG TAB PO PRN (21:16)
[2025-02-04] MEDS ORDERED: ONDANSETRON 4 MG/2 ML VIAL IVP PRN (21:16)
[2025-02-04] MEDS ORDERED: LORazepam 1 MG/0.5 ML VIAL IV PRN (21:16)
[2025-02-04] MEDS ORDERED: ATROPINE OPHTH SOLN 1% 5ML BTL SUBLINGUAL PRN (21:16)
[2025-02-04 22:11] VITALS: RESP 10
[2025-02-04] MEDS: SCOPOLAMINE 1 MG/72 HR PATCH TRANSDERM SCH (22:38)
[2025-02-05] MEDS: HYDROmorphone 1 MG/ML 1 ML SYRINGE IVP PRN (04:43)
--- NOTE | 2025-02-05 15:50 | P.HPIM ---
History of Present Illness H&P Date: 02/05/25 This is a pleasant 54-year-old male who presented to the emergency department for significant weakness and a hospice consult as patient has significant past medical history of stage V prostate cancer with metastasis along with chronic pain. Patient does not currently have a primary care provider here he reports as he was living in [place] for quite some time seeking alternative treatment and recently came back from [place] with family having increased amounts of pain, mostly wheelchair-bound and progressively becoming more weak. Patient and family did meet with [facility] and is planning on going home with hospice services today. Patient does have any significant past medical history as mentioned previously of prostate cancer with metastasis, fibromyalgia, chronic pain, anxiety, former smoker, occasionally drinks beer and uses marijuana on occasion and denies any other illicit drugs. Patient had been receiving Lupron injections outpatient and has not been reevaluated here for quite some time per previous documents noted in the chart. Patient is requesting if he can have a Lupron injection while here and this is done outpatient and cannot be done while inpatient and this was explained to family along with patient. [facility] making arrangements to get the home ready and will be going home today. Overall poor prognosis. Patient reports he is unsure if he will be returning to [place] for further treatment and has not made a final decision but would like to go home with hospice services today. Family are agreeable and has good contact and support system. REVIEW OF SYSTEMS: CONSTITUTIONAL: No fever, no malaise, reports of fatigue. HEENT: No recent visual problems or hearing problems. Denied any sore throat. CARDIOVASCULAR: No chest pain, orthopnea, PND, no palpitations, no syncope. PULMONARY: Reports of occasional shortness of breath, no cough, no hemoptysis. GASTROINTESTINAL: No diarrhea, no nausea, no vomiting, reports abdominal pain with poor oral intake NEUROLOGICAL: No headaches, reports significant weakness, no numbness. HEMATOLOGICAL: Denies any bleeding or petechiae. GENITOURINARY: Denies any burning micturition, frequency, or urgency. MUSCULOSKELETAL/RHEUMATOLOGICAL: Reports multiple areas of joint pain, swelling, or any muscle pain. ENDOCRINE: Denies any polyuria or polydipsia. The rest of the 14-point review of systems is negative. PHYSICAL EXAMINATION: GENERAL: The patient is alert and oriented x3, not in any acute distress. Well developed, ill-appearing, elderly appearing, unwell, cachectic with significant muscle wasting noted HEENT: Pupils are round and equally reacting to light. EOMI. No scleral icterus. No conjunctival pallor. Normocephalic, atraumatic. No pharyngeal erythema. No thyromegaly. CARDIOVASCULAR: S1 and S2 present. No murmurs, rubs, or gallops. PULMONARY: Chest is clear to auscultation, no wheezing or crackles. ABDOMEN: Soft, nontender, nondistended, normoactive bowel sounds. No palpable organomegaly. MUSCULOSKELETAL: No joint swelling or deformity. EXTREMITIES: No cyanosis, clubbing, or pedal edema. Significant bilateral lower extremity edema 2+ pitting NEUROLOGICAL: Gross neurological examination did not reveal any focal deficits. Diffusely weak SKIN: No rashes. Pale, dry Assessment: Prostate cancer, stage V with metastasis History of fibromyalgia with chronic pain Acute renal failure, acute tubular necrosis with poor oral intake History of anxiety Former smoker THC use GI prophylaxis DVT prophylaxis No code Plan: Patient was admitted last night from the ER with acute renal failure and uncontrolled pain with significant stage V metastatic prostate cancer and had met with Ayse gomez last night and was GIP appropriate and patient was flipped to GIP status although this morning on reevaluation patient is much more awake and alert and would like to go home with hospice services. Patient is agreeable and family agreeable as well and will be going home today after arrangements are made The impression and plan of care has been dictated by Erin Dockery, Nurse Practitioner as directed. Dr. Latrice MD I have performed a history and examination and MDM of this patient, discussed the same with the dictator, and agree with the dictator's assessment and plan as written ,documented as a scribe. Based on total visit time, I have performed more than 50% of the visit. Past Medical History Past Medical History: Cancer Additional Past Medical History / Comment(s): prostate cancer stage 5 with mets, fibromyalgia.CHRONIC PAIN History of Any Multi-Drug Resistant Organisms: MRSA Date of last positivie culture/infection: 2007 MDRO Source:: abdomen Past Surgical History: Cholecystectomy, Tonsillectomy Additional Past Surgical History / Comment(s): abdominal sx Past Anesthesia/Blood Transfusion Reactions: No Reported Reaction Past Psychological History: Anxiety Smoking Status: Former smoker Past Alcohol Use History: None Reported Additional Past Alcohol Use History / Comment(s): OCCASIONALLY BEER. Past Drug Use History: Marijuana Additional Drug Use History / Comment(s): Occ. marijuana use Medications and Allergies Home Medications Medication Instructions Recorded Confirmed Type Gabapentin [Neurontin] 300 mg PO BID 02/04/25 02/05/25 History Sennosides/Docusate Sodium [Senna 2 cap PO DAILY PRN 02/04/25 02/05/25 History Plus 8.6-50 mg Softgel] Sodium Bicarbonate Tab 1,300 mg PO QID 02/04/25 02/05/25 History Tamsulosin [Flomax] 0.4 mg PO DIRECTED 02/04/25 02/05/25 History oxyCODONE HCL [OxyIR] 5 mg PO TID PRN 02/04/25 02/05/25 History traZODone HCL [Desyrel] 50 mg PO HS 02/04/25 02/05/25 History Allergies Allergy/AdvReac Type Severity Reaction Status Date / Time Penicillins Allergy Rash/Hives Verified 02/05/25 08:20 Physical Exam Vitals: Vital Signs Resp 02/04/25 22:03 10 L Intake and Output 02/04/25 02/05/25 02/05/25 22:59 06:59 14:59 Output Total 250 400 Balance -250 -400 Output: Drainage 250 Right Back 250 Urine 400 Other: Weight 81.6 kg Thrombosis Risk Factor Assmnt - Choose All That Apply Each Factor Represents 1 point: Age 41-60 years Each Risk Factor Represents 2 Points: Malignancy Thrombosis Risk Factor Assessment Total Risk Factor Score: 3 Thrombosis Risk Factor Assessment Level: Moderate Risk
--- NOTE | 2025-02-05 15:55 | P.DS ---
Providers Date of admission: 02/04/25 21:01 Expected date of discharge: 02/05/25 Attending physician: Trent Martel Primary care physician: Stated None Hospital Course: Final diagnosis Prostate cancer, stage V with metastasis History of fibromyalgia with chronic pain Acute renal failure, acute tubular necrosis with poor oral intake History of anxiety Former smoker THC use GI prophylaxis DVT prophylaxis No code Discharge disposition Patient is being discharged in a stable condition with overall poor and guarded prognosis to home with [facility] services. Total time taken is greater than 35 minutes. Hospital course This is a pleasant 54-year-old male who presented to the emergency department for significant weakness and a hospice consult as patient has significant past medical history of stage V prostate cancer with metastasis along with chronic pain. Patient does not currently have a primary care provider here he reports as he was living in [place] for quite some time seeking alternative treatment and recently came back from [place] with family having increased amounts of pain, mostly wheelchair-bound and progressively becoming more weak. Patient and family did meet with [facility] and is planning on going home with hospice services today. Patient does have any significant past medical history as mentioned previously of prostate cancer with metastasis, fibromyalgia, chronic pain, anxiety, former smoker, occasionally drinks beer and uses marijuana on occasion and denies any other illicit drugs. Patient had been receiving Lupron injections outpatient and has not been reevaluated here for quite some time per previous documents noted in the chart. Patient is requesting if he can have a Lupron injection while here and this is done outpatient and cannot be done while inpatient and this was explained to family along with patient. [facility] making arrangements to get the home ready and will be going home today. Overall poor prognosis. Patient reports he is unsure if he will be returning to [place] for further treatment and has not made a final decision but would like to go home with hospice services today. Family are agreeable and has good contact and support system. PHYSICAL EXAMINATION: GENERAL: The patient is alert and oriented x3, not in any acute distress. Well developed, ill-appearing, elderly appearing, unwell, cachectic with significant muscle wasting noted HEENT: Pupils are round and equally reacting to light. EOMI. No scleral icterus. No conjunctival pallor. Normocephalic, atraumatic. No pharyngeal erythema. No thyromegaly. CARDIOVASCULAR: S1 and S2 present. No murmurs, rubs, or gallops. PULMONARY: Chest is clear to auscultation, no wheezing or crackles. ABDOMEN: Soft, nontender, nondistended, normoactive bowel sounds. No palpable organomegaly. MUSCULOSKELETAL: No joint swelling or deformity. EXTREMITIES: No cyanosis, clubbing, or pedal edema. Significant bilateral lower extremity edema 2+ pitting NEUROLOGICAL: Gross neurological examination did not reveal any focal deficits. Diffusely weak SKIN: No rashes. Pale, dry 02/05/2025 Patient reevaluated with [facility] and patient is much more awake and alert and wanting to go home. [facility] services making arrangements for home with hospice and will be discharged later today. Patient denies chest pain or shortness of breath and is tolerating diet with decreased appetite although denies any nausea or vomiting. Patient will be going home with [facility] services The impression and plan of care has been dictated by Erin Dockery, Nurse Practitioner as directed. Dr. Latrice MD I have performed a history and examination and MDM of this patient, discussed the same with the dictator, and agree with the dictator's assessment and plan as written ,documented as a scribe. Based on total visit time, I have performed more than 50% of the visit. Patient Condition at Discharge: Stable Plan - Discharge Summary Discharge Rx Participant: No New Discharge Prescriptions: Continue Sennosides/Docusate Sodium [Senna Plus 8.6-50 mg Softgel] 2 cap PO DAILY PRN PRN Reason: Constipation traZODone HCL [Desyrel] 50 mg PO HS Tamsulosin [Flomax] 0.4 mg PO DIRECTED Sodium Bicarbonate Tab 1,300 mg PO QID oxyCODONE HCL [OxyIR] 5 mg PO TID PRN PRN Reason: Pain Gabapentin [Neurontin] 300 mg PO BID Discharge Medication List Gabapentin [Neurontin] 300 mg PO BID 02/04/25 [History] Sennosides/Docusate Sodium [Senna Plus 8.6-50 mg Softgel] 2 cap PO DAILY PRN 02/04/25 [History] Sodium Bicarbonate Tab 1,300 mg PO QID 02/04/25 [History] Tamsulosin [Flomax] 0.4 mg PO DIRECTED 02/04/25 [History] oxyCODONE HCL [OxyIR] 5 mg PO TID PRN 02/04/25 [History] traZODone HCL [Desyrel] 50 mg PO HS 02/04/25 [History] Activity/Diet/Wound Care/Special Instructions: Patient is going home with hospice Activity as tolerated Follow-up with oncology outpatient Must follow-up outpatient for previous injection ordered as this is not done while hospitalized Discharge Disposition: HOME WITH HOSPICE
== END 2025-02-05 17:51 | disposition hospice, home (50) | DRG 951 ==
LOC: 5NMEDONC 21:01
PROVIDERS: ADMIT Hospitalist; ATTEND Hospitalist
DX: Z51.5 Encounter for palliative care (principal); N17.0 Acute kidney failure with tubular necrosis; R64 Cachexia; C79.9 Secondary malignant neoplasm of unspecified site; C61 Malignant neoplasm of prostate; Z66 Do not resuscitate; F41.9 Anxiety disorder, unspecified; M79.7 Fibromyalgia; G89.3 Neoplasm related pain (acute) (chronic); Z68.24 Body mass index [BMI] 24.0-24.9, adult; Z79.899 Other long term (current) drug therapy; Z88.0 Allergy status to penicillin; Z99.3 Dependence on wheelchair; Z87.891 Personal history of nicotine dependence

== ENCOUNTER 2025-02-17 10:39 | Inpatient (IN) | payer MEDICAID ==
--- NOTE | 2025-02-17 11:20 | ED ---
General Adult HPI - General Chief complaint: Recheck/Abnormal Lab/Rx Stated complaint: dislodged tube Time Seen by Provider: 02/17/25 10:45 Source: patient, RN notes reviewed, old records reviewed Mode of arrival: EMS Limitations: no limitations - History of Present Illness Initial comments: This a 54-year-old male who comes in as a hospice patient. He comes to the hospital today because he has nephrostomy tube in the right kidney and it broke so they sent him in to have it replaced. Patient states he does want it to be replaced. Patient states he has chronic pain he continues to be in some pain and he also was mildly nauseous. Patient denies chest pain or palpitation. Patient has abdominal pain. - Related Data Home Medications Medication Instructions Recorded Confirmed Gabapentin [Neurontin] 300 mg PO Q12H 02/04/25 02/17/25 Sodium Bicarbonate Tab 1,300 mg PO QID 02/04/25 02/17/25 traZODone HCL [Desyrel] 50 mg PO HS 02/04/25 02/17/25 Acetaminophen [Tylenol] 650 mg PO Q6H PRN 02/17/25 02/17/25 Furosemide [Lasix] 40 mg PO DAILY 02/17/25 02/17/25 Ibuprofen [Motrin] 400 mg PO Q8HR 02/17/25 02/17/25 LORazepam [Ativan] 0.5 mg PO Q4H PRN 02/17/25 02/17/25 MORPHINE ORAL KARINA CONC 20mg/mL 10 mg PO Q4HR PRN 02/17/25 02/17/25 [Roxanol Oral Soln Conc 20MG/ML] Morphine Sulfate ER [Ms Contin] 100 mg PO Q12H 02/17/25 02/17/25 Potassium Chloride ER [K-Dur 10] 10 meq PO DAILY 02/17/25 02/17/25 dexAMETHasone [Decadron] 4 mg PO Q12H 02/17/25 02/17/25 guaiFENesin-DM 600/30MG [Mucinex 1 tab PO Q12HR 02/17/25 02/17/25 Dm] Allergies Allergy/AdvReac Type Severity Reaction Status Date / Time Penicillins Allergy Rash/Hives Verified 02/17/25 11:52 Review of Systems ROS Statement: Those systems with pertinent positive or pertinent negative responses have been documented in the HPI. ROS Other: All systems not noted in ROS Statement are negative. Past Medical History Past Medical History: Cancer Additional Past Medical History / Comment(s): prostate cancer stage 5 with mets, fibromyalgia.CHRONIC PAIN History of Any Multi-Drug Resistant Organisms: MRSA Date of last positivie culture/infection: 2007 MDRO Source:: abdomen Past Surgical History: Cholecystectomy, Tonsillectomy Additional Past Surgical History / Comment(s): abdominal sx Past Anesthesia/Blood Transfusion Reactions: No Reported Reaction Past Psychological History: Anxiety Smoking Status: Former smoker, Vaper Past Alcohol Use History: Occasional Past Drug Use History: None Reported General Exam - General Exam Comments Initial Comments: GENERAL: Patient is well-developed and well-nourished. Patient is nontoxic and well-hyd rated and is in mild distress. ENT: Neck is soft and supple. No significant lymphadenopathy is noted. Oropharynx is clear. Moist mucous membranes. Neck has full range of motion without eliciting any pain. EYES: The sclera were anicteric and conjunctiva were pink and moist. Extraocular movements were intact and pupils were equal round and reactive to light. Eyelids were unremarkable. PULMONARY: Unlabored respirations. Good breath sounds bilaterally. No audible rales rhonchi or wheezing was noted. CARDIOVASCULAR: There is a regular rate and rhythm without any murmurs gallops or rubs. ABDOMEN: Soft and nontender with normal bowel sounds. SKIN: Skin is clear with no lesions or rashes and otherwise unremarkable. NEUROLOGIC: Patient is alert and oriented x3. Cranial nerves II through XII are grossly intact. Motor and sensory are also intact. Normal speech, volume and content. Symmetrical smile. MUSCULOSKELETAL: Normal extremities with adequate strength and full range of motion. LYMPHATICS: No significant lymphadenopathy is noted PSYCHIATRIC: Normal psychiatric evaluation. Limitations: no limitations Course Vital Signs 02/17/25 02/17/25 02/17/25 10:41 12:41 13:00 Temperature 98.1 F Pulse Rate 121 H 160 H 161 H Pulse Rate [ Grad Intern ] Respiratory 18 18 18 Rate Blood Pressure 118/95 89/69 92/75 O2 Sat by Pulse 92 L 95 98 Oximetry 02/17/25 13:01 Temperature Pulse Rate Pulse Rate [ 161 H Grad Intern ] Respiratory Rate Blood Pressure O2 Sat by Pulse Oximetry Medical Decision Making - Medical Decision Making EKG is interpreted by myself. EKG shows atrial fibrillation at 162 bpm QRS is 95 QT interval is 262 QTc is 352. Patient's EKG shows no ST segment elevation or depression Was pt. sent in by a medical professional or institution ([facility] Partida, JOURNEYMAN MACHINIST, urgent care, hospital, or [facility]...) When possible be specific @ -No Did you speak to anyone other than the patient for history (EMS, parent, family, police, friend...)? What history was obtained from this source @ -No Did you review nursing and triage notes (agree or disagree)? Why? @ -I reviewed and agree with nursing and triage notes Were old charts reviewed (outside hosp., previous admission, EMS record, old EKG, old radiological studies, urgent care reports/EKG's, [facility] records)? Report findings @ -No old charts were reviewed Differential Diagnosis? @ -Nephrostomy tube replacement EKG interpreted by me (3pts min.). @ -As above X-rays interpreted by me (1pt min.). @ -None done CT interpreted by me (1pt min.). @ -None done U/S interpreted by me (1pt. min.). @ -None done What testing was considered but not performed or refused? (CT, X-rays, U/S, labs)? Why? @ -None What meds were considered but not given or refused? Why? @ -None Did you discuss the management of the patient with other professionals (professionals i.e. ROBERTO Partida, JOURNEYMAN MACHINIST, lab, RT, psych nurse, clinical social work therapist, switch inspector, teacher, environmental officer, top case assembler)? Give summary @ -I spoke with Dr. Ohara and he agreed to admit the patient admit the patient recommending orders Was smoking cessation discussed for >3mins.? @ -No Was critical care preformed (if so, how long)? @ -35 minutes Were there social determinants of health that impacted care today? How? (Homelessness, low income, unemployed, alcoholism, drug addiction, transportation, low edu. Level, literacy, decrease access to med. care, usp, rehab)? @ -No Was there de-escalation of care discussed even if they declined (Discuss DNR or withdrawal of care, Hospice)? DNR status @ -No What co-morbidities impacted this encounter? (DM, HTN, Smoking, COPD, CAD, Cancer, CVA, ARF, Chemo, Hep., AIDS, mental health diagnosis, sleep apnea, morbid obesity)? @ -None Was patient admitted / discharged? Hospital course, mention meds given and route, prescriptions, significant lab abnormalities, going to OR and other pertinent info. @ -After patient was admitted patient went into atrial fibrillation and there was a EKG in the past that showed A-fib. Patient is a hospice patient as we are waiting for instructions as to what patient and family wants to do about the atrial fibrillation. Patient was put on Cardizem with a Cardizem drip Undiagnosed new problem with uncertain prognosis? @ -No Drug Therapy requiring intensive monitoring for toxicity (Heparin, Nitro, Insulin, Cardizem)? @ -No Were any procedures done? @ -No Diagnosis/symptom? @ -Atrial fibrillation with rapid ventricular response Acute, or Chronic, or Acute on Chronic? @ -Acute Uncomplicated (without systemic symptoms) or Complicated (systemic symptoms)? @ -Complicated Side effects of treatment? @ -No Exacerbation, Progression, or Severe Exacerbation? @ -No Poses a threat to life or bodily function? How? (Chest pain, [place], [place], pneumonia, PE, COPD, DKA, ARF, appy, cholecystitis, CVA, Diverticulitis, Homicidal, Suicidal, threat to staff... and all critical care pts) @ -Yes this can lead to hypoxia and endorgan dysfunction Diagnosis/symptom? @ -Nephrostomy tube replacement Acute, or Chronic, or Acute on Chronic? @ -Acute Uncomplicated (without systemic symptoms) or Complicated (systemic symptoms)? @ -Uncomplicated Side effects of treatment? @ -None Exacerbation, Progression, or Severe Exacerbation] @ -No Poses a threat to life or bodily function? @ -No - Lab Data Result diagrams: 02/17/25 11:27 02/17/25 11:12 Lab Results 02/17/25 02/17/25 Range/Units 11:12 11:27 WBC 9.70 (4.50-10.00) 10*3/uL RBC 2.93 L (4.40-5.60) 10*6/uL Hgb 8.8 L (13.0-17.0) g/dL Hct 27.8 L (39.6-50.0) % MCV 94.9 (80.0-97.0) fL MCH 30.0 (27.0-32.0) pg MCHC 31.7 L (32.0-37.0) g/dL Plt Count 271 (140-440) 10*3/uL MPV 9.5 (9.5-12.2) fL Immature Gran % (Auto) 5.9 % Neutrophils % 75.9 % Lymphocytes % 3.4 % Monocytes % 14.4 % Eosinophils % 0.2 % Basophils % 0.2 % Immature Gran # 0.57 H (0.00-0.04) 10*3/uL Neutrophils # 7.36 (1.80-7.70) 10*3/uL Lymphocytes # 0.33 L (0.90-5.00) 10*3/uL Monocytes # 1.40 H (0.20-1.00) 10*3/uL Eosinophils # 0.02 L (0.04-0.35) 10*3/uL Basophils # 0.02 (0.00-0.10) 10*3/uL Manual Slide Review Performed Sodium 138 (137-145) mmol/L Potassium 4.5 (3.5-5.1) mmol/L Chloride 105 (98-107) mmol/L Carbon Dioxide 23 (22-30) mmol/L Anion Gap 10 mmol/L BUN 53 H (9-20) mg/dL Creatinine 1.95 H (0.66-1.25) mg/dL Est GFR (CKD-EPI)AfAm 43 (>60 ml/min/1.73 sqM) Est GFR (CKD-EPI)NonAf 37 (>60 ml/min/1.73 sqM) Glucose 95 (74-99) mg/dL Calcium 10.4 H (8.4-10.2) mg/dL Magnesium 2.4 H (1.6-2.3) mg/dL Total Bilirubin 0.4 (0.2-1.3) mg/dL AST 33 (17-59) U/L ALT 11 (4-49) U/L Alkaline Phosphatase 89 (38-126) U/L Total Protein 6.1 L (6.3-8.2) g/dL Albumin 3.2 L (3.5-5.0) g/dL Disposition Clinical Impression: Nephrostomy tube displaced, Atrial fibrillation with RVR Disposition: ADMITTED IP TO THIS HOSP Referrals: None,Stated [Primary Care Provider] - 1-2 days Time of Disposition: 13:11
[2025-02-17] MEDS: ONDANSETRON 4 MG/2 ML VIAL IVP STA (11:31)
[2025-02-17] MEDS: HYDROmorphone 0.5 MG/0.5 ML SYRINGE IVP STA (11:32)
[2025-02-17 11:41] LABS: Basophils # (A) 0.02 10*3/uL (0.00-0.10); Basophils % (A) 0.2 %; Eosinophils # (A) 0.02 10*3/uL (0.04-0.35); Eosinophils % (A) 0.2 %; HCT 27.8 % (39.6-50.0); HGB 8.8 g/dL (13.0-17.0); Lymphocytes # (A) 0.33 10*3/uL (0.90-5.00); Lymphocytes % (A) 3.4 %; MCHC 31.7 g/dL (32.0-37.0); MCV 94.9 fL (80.0-97.0); Mean Platelet Volume 9.5 fL (9.5-12.2); Monocytes % (A) 14.4 %; Neutrophils # (A) 7.36 10*3/uL (1.80-7.70); Neutrophils % (A) 75.9 %; Platelet Count 271 10*3/uL (140-440); RBC 2.93 10*6/uL (4.40-5.60); RDW 15.7 % (11.5-14.5)
[2025-02-17 11:47] LABS: ALT 11 U/L (4-49); AST 33 U/L (17-59); African American GFR (CKD) 43 (>60 ml/min/1.73 sqM); Albumin 3.2 g/dL (3.5-5.0); Alkaline Phosphatase 89 U/L (38-126); Anion Gap 10 mmol/L; Blood Urea Nitrogen 53 mg/dL (9-20); Calcium 10.4 mg/dL (8.4-10.2); Carbon Dioxide 23 mmol/L (22-30); Chloride 105 mmol/L (98-107); Glucose 95 mg/dL (74-99); Magnesium 2.4 mg/dL (1.6-2.3); Non-African American GFR(CKD) 37 (>60 ml/min/1.73 sqM); Potassium 4.5 mmol/L (3.5-5.1); Sodium 138 mmol/L (137-145); Total Bilirubin 0.4 mg/dL (0.2-1.3); Total Protein 6.1 g/dL (6.3-8.2)
[2025-02-17] MEDS: HYDROmorphone 1 MG/ML 1 ML SYRINGE IVP STA (12:53)
[2025-02-17] MEDS: SODIUM CHLORIDE 0.9% 1,000 ML IV ONE ×2 (14:06)
[2025-02-17] MEDS: DILTIAZEM 5 MG/ML 5 ML VIAL IVP STA ×2 (14:13→15:29)
[2025-02-17] MEDS: DILTIAZEM 125 MG in DEXTROSE 5% IN WATER 100 ML IV SCH (14:15)
[2025-02-17] MEDS: LORazepam 1 MG/0.5 ML VIAL IV STA (15:30)
[2025-02-17 19:38] VITALS: TEMP 99
[2025-02-17] MEDS ORDERED: ACETAMINOPHEN TAB 325 MG TAB PO PRN (20:55)
--- NOTE | 2025-02-17 20:55 | P.HPIM ---
History of Present Illness H&P Date: 02/17/25 Chief Complaint: Dislodged nephrostomy tube Patient is an 54-year-old male with known history of metastatic prostate cancer status post chemo and radiation while he was in [place] and he is currently under hospice care. Also has fibromyalgia and chronic pain and anxiety and prior smoking/vaping. Patient was sent to ER with complaints of right nephrostomy tube dislodged and came out. Patient has been leaking urine at the nephrostomy tube insertion site. Patient wants it to be replaced. Otherwise he has been continued on morphine for pain control. No complaints of chest pain or shortness of breath. No headache or dizziness lightheadedness. Patient does have nausea. No episodes of vomiting. While in the ER patient was noted to have atrial fibrillation with rapid ventricular response. Patient wants to be treated. Laboratory data showed WBC 9.7 hemoglobin 8.8 and platelets 271, sodium 138 potassium 4.5 chloride 105 bicarb is 23 BUN 53 and creatinine 1.95, calcium 10.4 magnesium 2.4 and albumin 3.2. Review of Systems Constitutional: Patient denies any fever or chills . Generalized weakness and loss of provide. Abdomen: Patient does have nausea and. No vomiting or diarrhea.. Chronic abdominal pain. Cardiovascular: Patient denies any chest pain or short of breath no palpitations. Respiratory: patient denied any cough or sputum production. No shortness of breath Neurologic: Patient denied any numbness or tingling. no headache. Musculoskeletal: Patient denies any complaints of joint swelling or deformity. Generalized pain. Skin: Negative Psychiatric: Negative Endocrine: No heat or cold intolerance. No recent weight gain. Genitourinary: No dysuria or hematuria. All other 14 point ROS negative except the above Past Medical History Past Medical History: Cancer Additional Past Medical History / Comment(s): prostate cancer stage 5 with mets, fibromyalgia.CHRONIC PAIN History of Any Multi-Drug Resistant Organisms: MRSA Date of last positivie culture/infection: 2007 MDRO Source:: abdomen Past Surgical History: Cholecystectomy, Tonsillectomy Additional Past Surgical History / Comment(s): abdominal sx Past Anesthesia/Blood Transfusion Reactions: No Reported Reaction Past Psychological History: Anxiety Smoking Status: Former smoker, Vaper Past Alcohol Use History: Occasional Past Drug Use History: None Reported Medications and Allergies Home Medications Medication Instructions Recorded Confirmed Type Gabapentin [Neurontin] 300 mg PO Q12H 02/04/25 02/17/25 History Sodium Bicarbonate Tab 1,300 mg PO QID 02/04/25 02/17/25 History traZODone HCL [Desyrel] 50 mg PO HS 02/04/25 02/17/25 History Acetaminophen [Tylenol] 650 mg PO Q6H PRN 02/17/25 02/17/25 History Furosemide [Lasix] 40 mg PO DAILY 02/17/25 02/17/25 History Ibuprofen [Motrin] 400 mg PO Q8HR 02/17/25 02/17/25 History LORazepam [Ativan] 0.5 mg PO Q4H PRN 02/17/25 02/17/25 History MORPHINE ORAL KARINA CONC 20mg/mL 10 mg PO Q4HR PRN 02/17/25 02/17/25 History [Roxanol Oral Soln Conc 20MG/ML] Morphine Sulfate ER [Ms Contin] 100 mg PO Q12H 02/17/25 02/17/25 History Potassium Chloride ER [K-Dur 10] 10 meq PO DAILY 02/17/25 02/17/25 History dexAMETHasone [Decadron] 4 mg PO Q12H 02/17/25 02/17/25 History guaiFENesin-DM 600/30MG [Mucinex 1 tab PO Q12HR 02/17/25 02/17/25 History Dm] Allergies Allergy/AdvReac Type Severity Reaction Status Date / Time Penicillins Allergy Rash/Hives Verified 02/17/25 11:52 Physical Exam Vitals: Vital Signs Temp Pulse Pulse Resp BP BP Pulse Ox 02/17/25 19:36 99.0 F 89 16 120/73 94 L 02/17/25 18:25 98.3 F 91 18 117/70 96 02/17/25 17:24 84 18 112/72 95 02/17/25 16:36 91 18 102/77 97 02/17/25 16:03 112 H 16 87/76 96 02/17/25 15:26 149 H 16 102/68 97 02/17/25 15:01 160 H 16 99/73 95 02/17/25 14:39 152 H 18 90/70 95 02/17/25 14:26 142 H 02/17/25 14:05 147 H 18 104/56 97 02/17/25 13:01 161 H 02/17/25 13:00 161 H 18 92/75 98 02/17/25 12:41 160 H 18 89/69 95 02/17/25 10:41 98.1 F 121 H 18 118/95 92 L Intake and Output 02/17/25 02/17/25 02/17/25 06:59 14:59 22:59 Intake Total 6.25 Balance 6.25 Intake: Intake, IV Titration 6.25 Amount Diltiazem 125 mg In 6.25 Dextrose 5% in Water 100 ml @ 5 MG/HR 5 mls/hr IV .Q24H [facility] Rx#:[id number] Other: Weight 131.542 kg PHYSICAL EXAMINATION: Patient is lying in the bed,, no acute distress, awake alert and oriented. Frail looking. HEENT: Normocephalic. Neck is supple. Pupils reactive. Nostrils clear. Oral cavity is moist. Neck reveals no JVD, carotid bruits, or thyromegaly. CHEST EXAMINATION: Trachea is central. Symmetrical expansion. Bibasilar diminished sounds and basilar crackles. No wheezing or rhonchi. CARDIAC: Normal S1, S2 with no gallops. No murmurs ABDOMEN: Soft. Bowel sounds present,. No organomegaly. No abdominal bruits. Leaking urine from the right nephrostomy tube insertion site. Extremities: reveal no edema. No clubbing or cyanosis Neurologically awake, alert, oriented x3 able to move all extremities. No gross no focal deficits noted Skin: No rash or skin lesions. Psychiatric: Coperative. Nonsuicidal Musculoskeletal: No joint swelling or deformity. Results CBC & Chem 7: 02/17/25 11:27 02/17/25 11:12 Labs: Abnormal Lab Results - Last 24 Hours (Table) 02/17/25 02/17/25 Range/Units 11:12 11:27 RBC 2.93 L (4.40-5.60) 10*6/uL Hgb 8.8 L (13.0-17.0) g/dL Hct 27.8 L (39.6-50.0) % MCHC 31.7 L (32.0-37.0) g/dL Immature Gran # 0.57 H (0.00-0.04) 10*3/uL Lymphocytes # 0.33 L (0.90-5.00) 10*3/uL Monocytes # 1.40 H (0.20-1.00) 10*3/uL Eosinophils # 0.02 L (0.04-0.35) 10*3/uL BUN 53 H (9-20) mg/dL Creatinine 1.95 H (0.66-1.25) mg/dL Calcium 10.4 H (8.4-10.2) mg/dL Magnesium 2.4 H (1.6-2.3) mg/dL Total Protein 6.1 L (6.3-8.2) g/dL Albumin 3.2 L (3.5-5.0) g/dL Thrombosis Risk Factor Assmnt - DVT/VTE Prophylaxis DVT/VTE Prophylaxis: Pharmacologic Prophylaxis ordered Assessment and Plan Assessment: Nephrostomy tube dislodged New onset atrial fibrillation with rapid ventricular response Acute kidney injury likely vasomotor nephropathy, rule out obstructive etiology. Metastatic prostate cancer with history of chemo and radiation while he was in [place]. Currently under hospice care Hide with myalgia Chronic pain Anxiety Prior history of smoking/vaping Plan: Patient is dependent on gentle IV hydration. Patient was given IV push Cardizem 5 mg while in the ER. Continued on Cardizem drip for rate control. Continued pain management with Dilaudid and oral pain medications. Urology was consulted for nephrostomy tube replacement. Patient is oriented x 3 and would like to be treated. Continue to follow closely.
[2025-02-17] MEDS: dexAMETHasone 4 MG TAB PO SCH (22:17)
[2025-02-17] MEDS: GABAPENTIN 300 MG CAP PO SCH (22:17)
[2025-02-17] MEDS: traZODone HCL 50 MG TAB PO SCH (22:17)
[2025-02-18] MEDS: HYDROmorphone 0.5 MG/0.5 ML SYRINGE IVP PRN (03:44)
--- NOTE | 2025-02-18 07:09 | US ---
EXAMINATION TYPE: US renals and bladder DATE OF EXAM: 02/17/2025 COMPARISON: 04/01/21 CT CLINICAL INDICATION: Male, 54 years old with history of JOI; JOI TECHNIQUE: Grayscale imaging of the bilateral kidneys and urinary bladder: FINDINGS: EXAM MEASUREMENTS: Right Kidney: 12.9 x 5.8 x 5.6 cm Left Kidney: 13.7 x 7.2 x 5.9 cm limited due to patient lack of cooperation Right Kidney: 4mm echogenic foci seen in the inferior pole Left Kidney: Dilation of the collecting system. There are a renal cortical anechoic lesions most comp atible with cysts measuring up to 1.8cm in the lateral/ superior pole. Bladder: irregularly thickened wall measuring 1.2cm. debris seen within Bilateral Jets seen: not seen small amount of free fluid seen near the liver and spleen IMPRESSION: 1. Thickened irregular wall throughout the urinary bladder correlate with urinalysis mass not entire ly excluded but felt to be less likely. 2. Mild/moderate left hydronephrosis. Correlate for obstructive uropathy. Possibly secondary to thic kened urinary bladder tucker. 3. Nonobstructing right renal contrast. 4. Simple appearing left renal cyst. 5. Trace ascites [facility], , 02/18/2025 7:06 AM
[2025-02-18 07:29] LABS: African American GFR (CKD) 41 (>60 ml/min/1.73 sqM); Anion Gap 10 mmol/L; Blood Urea Nitrogen 50 mg/dL (9-20); Calcium 10.4 mg/dL (8.4-10.2); Carbon Dioxide 24 mmol/L (22-30); Chloride 106 mmol/L (98-107); Glucose 95 mg/dL (74-99); Non-African American GFR(CKD) 35 (>60 ml/min/1.73 sqM); Potassium 4.6 mmol/L (3.5-5.1); Sodium 140 mmol/L (137-145)
[2025-02-18 08:13] VITALS: RESP 12
[2025-02-18] MEDS: METOPROLOL TARTRATE 25 MG TAB PO SCH (09:00)
--- NOTE | 2025-02-18 10:03 | P.CRDCN ---
History of Present Illness History of present illness: HISTORY OF PRESENT ILLNESS: This is a 54-year-old male with a past medical history significant for metastatic prostate cancer and nephrostomy tube. Patient does not follow with a reinforcing bar setter. We have been asked to see the patient in consultation for atrial fibrillation. Patient examined at the bedside in the emergency room. Patient is apparently under hospice care secondary to metastatic prostate cancer. He presented to the hospital due to possible dislodgment or malfunction of his nephrostomy tube. EKG on admission revealed atrial fibrillation with RVR. The patient denies any known history of atrial fibrillation. However patient was admitted to the hospital in November 2024 and was diagnosed with atrial fibrillation at that time. He was started on IV Cardizem with conversion to sinus mechanism. He is maintaining sinus mechanism this morning. Patient does complain of sinus congestion this morning. Denies any chest pain or shortness of breath. DIAGNOSTICS: - EKG reveals A-fib with RVR. - Laboratory data: WBC 9.70. Hemoglobin 8.8. Platelet count 271. Sodium 140. Potassium 4.6. BUN 50. Creatinine 2.06. Magnesium 2.4. - Current home cardiac medications include Lasix 40 mg daily. - Most recent echocardiogram obtained in November 2024 revealed ejection fr action 55 to 60%, no obvious regional wall motion abnormalities, mild MR, mild TR - Cardiac catheterization history: Patient denies REVIEW OF SYSTEMS: At the time of my exam: CONSTITUTIONAL: Denies fever or chills. HEENT: Denies blurred vision, vision changes, or eye pain. Denies hemoptysis CARDIOVASCULAR: Denies chest pain. Denies orthopnea. Denies PND. Denies palpitations RESPIRATORY: Denies shortness of breath. GASTROINTESTINAL: Denies abdominal pain. Denies nausea or vomiting. Reports c onstipation. HEMATOLOGIC: Denies bleeding disorders. GENITOURINARY: Denies any blood in urine. SKIN: Denies pruitis. Denies rash. PHYSICAL EXAM: VITAL SIGNS: Reviewed. GENERAL: Well-developed in no acute distress. HEENT: Head is normocephalic. Pupils are equal, round. Sclerae anicteric. Mucous membranes of the mouth are moist. Neck supple. No JVD or thyromegaly LUNGS: Respirations even and unlabored. Lungs essentially clear to auscultation bilaterally. HEART: Regular rate and rhythm. S1 and S2 heard. ABDOMEN: Soft. Nondistended. Nontender. EXTREMITIES: Normal range of motion. No clubbing or cyanosis. Peripheral pulses intact. 2-3+ bilateral lower extremity edema. NEUROLOGIC: Lethargic ASSESSMENT: Possible malfunction/dislodgment of nephrostomy tube Acute kidney injury Atrial fibrillation with RVR, first diagnosed in November 2024, maintaining sinus mechanism Metastatic prostate cancer Constipation PLAN: Continue to monitor kidney function. Hold oral Lasix. No need to repeat echocardiogram as this was performed in November 2024 Discontinue IV Cardizem Add metoprolol tartrate 25 mg twice a day Check TSH Patient is currently not a candidate for anticoagulation secondary to metastatic prostate cancer. Additionally, patient is under hospice care Further recommendations pending patient course Nurse practitioner note has been reviewed by physician. Signing provider agrees with the documented findings, assessment, and plan of care documented by [employer] as a scribe. Past Medical History Past Medical History: Cancer Additional Past Medical History / Comment(s): prostate cancer stage 5 with mets, fibromyalgia.CHRONIC PAIN History of Any Multi-Drug Resistant Organisms: MRSA Date of last positivie culture/infection: 2007 MDRO Source:: abdomen Past Surgical History: Cholecystectomy, Tonsillectomy Additional Past Surgical History / Comment(s): abdominal sx Past Anesthesia/Blood Transfusion Reactions: No Reported Reaction Past Psychological History: Anxiety Smoking Status: Former smoker, Vaper Past Alcohol Use History: Occasional Past Drug Use History: None Reported Medications and Allergies Home Medications Medication Instructions Recorded Confirmed Type Gabapentin [Neurontin] 300 mg PO Q12H 02/04/25 02/17/25 History Sodium Bicarbonate Tab 1,300 mg PO QID 02/04/25 02/17/25 History traZODone HCL [Desyrel] 50 mg PO HS 02/04/25 02/17/25 History Acetaminophen [Tylenol] 650 mg PO Q6H PRN 02/17/25 02/17/25 History Furosemide [Lasix] 40 mg PO DAILY 02/17/25 02/17/25 History Ibuprofen [Motrin] 400 mg PO Q8HR 02/17/25 02/17/25 History LORazepam [Ativan] 0.5 mg PO Q4H PRN 02/17/25 02/17/25 History MORPHINE ORAL KARINA CONC 20mg/mL 10 mg PO Q4HR PRN 02/17/25 02/17/25 History [Roxanol Oral Soln Conc 20MG/ML] Morphine Sulfate ER [Ms Contin] 100 mg PO Q12H 02/17/25 02/17/25 History Potassium Chloride ER [K-Dur 10] 10 meq PO DAILY 02/17/25 02/17/25 History dexAMETHasone [Decadron] 4 mg PO Q12H 02/17/25 02/17/25 History guaiFENesin-DM 600/30MG [Mucinex 1 tab PO Q12HR 02/17/25 02/17/25 History Dm] Allergies Allergy/AdvReac Type Severity Reaction Status Date / Time Penicillins Allergy Rash/Hives Verified 02/17/25 11:52 Physical Exam Vitals: Vital Signs Temp Pulse Pulse Resp BP BP Pulse Ox 02/18/25 08:00 78 12 127/62 96 02/18/25 07:00 67 12 122/64 95 02/18/25 03:49 78 16 123/72 96 02/18/25 00:00 88 16 116/74 92 L 02/17/25 19:36 99.0 F 89 16 120/73 94 L 02/17/25 18:25 98.3 F 91 18 117/70 96 02/17/25 17:24 84 18 112/72 95 02/17/25 16:36 91 18 102/77 97 02/17/25 16:03 112 H 16 87/76 96 02/17/25 15:26 149 H 16 102/68 97 02/17/25 15:01 160 H 16 99/73 95 02/17/25 14:39 152 H 18 90/70 95 02/17/25 14:26 142 H 02/17/25 14:05 147 H 18 104/56 97 02/17/25 13:01 161 H 02/17/25 13:00 161 H 18 92/75 98 02/17/25 12:41 160 H 18 89/69 95 02/17/25 10:41 98.1 F 121 H 18 118/95 92 L Intake and Output 02/17/25 02/18/25 02/18/25 22:59 06:59 14:59 Intake Total 6. 85.167 Balance 6. 85.167 Intake: Intake, IV Titration 6. 85.167 Amount Diltiazem 125 mg In 6.25 85.167 Dextrose 5% in Water 100 ml @ 5 MG/HR 5 mls/hr IV .Q24H ZACHARY Rx#:[id number] Other: # Voids 1 Results 02/17/25 11:27 02/18/25 06:52 Cardiac Enzymes 02/17/25 Range/Units 11:12 AST 33 (17-59) U/L CBC 02/17/25 Range/Units 11:27 WBC 9.70 (4.50-10.00) 10*3/uL RBC 2.93 L (4.40-5.60) 10*6/uL Hgb 8.8 L (13.0-17.0) g/dL Hct 27.8 L (39.6-50.0) % Plt Count 271 (140-440) 10*3/uL Comprehensive Metabolic Panel 02/17/25 02/18/25 Range/Units 11:12 06:52 Sodium 138 140 (137-145) mmol/L Potassium 4.5 4.6 (3.5-5.1) mmol/L Chloride 105 106 (98-107) mmol/L Carbon Dioxide 23 24 (22-30) mmol/L BUN 53 H 50 H (9-20) mg/dL Creatinine 1.95 H 2.06 H (0.66-1.25) mg/dL Glucose 95 95 (74-99) mg/dL Calcium 10.4 H 10.4 H (8.4-10.2) mg/dL AST 33 (17-59) U/L ALT 11 (4-49) U/L Alkaline Phosphatase 89 (38-126) U/L Total Protein 6.1 L (6.3-8.2) g/dL Albumin 3.2 L (3.5-5.0) g/dL Current Medications Generic Name Dose Route Start Last Admin Trade Name Freq PRN Reason Stop Dose Admin Acetaminophen 650 mg 02/17/25 20:55 Acetaminophen Tab 325 Mg Tab PO Q6H PRN Fever and/ or Pain Dexamethasone 4 mg 02/17/25 21:00 02/18/25 09:00 Dexamethasone 4 Mg Tab PO 4 mg Q12H ZACHARY Administration Gabapentin 300 mg 02/17/25 21:00 02/18/25 09:00 Gabapentin 300 Mg Cap PO 300 mg Q12H ZACHARY Administration Hydromorphone HCl 0.5 mg 02/17/25 13:14 02/18/25 03:44 Hydromorphone 0.5 Mg/0.5 Ml Syringe IVP 0.5 mg Q4HR PRN Administration Pain Metoprolol Tartrate 25 mg 02/18/25 09:00 02/18/25 09:00 Metoprolol Tartrate 25 Mg Tab PO 25 mg BID ZACHARY Administration Trazodone HCl 50 mg 02/17/25 21:00 02/17/25 22:17 Trazodone Hcl 50 Mg Tab PO Not Given HS ZACHARY Intake and Output 02/17/25 02/18/25 02/18/25 22:59 06:59 14:59 Intake Total 6.25 85.167 Balance 6.25 85.167 Intake: Intake, IV Titration 6.25 85.167 Amount Diltiazem 125 mg In 6.25 85.167 Dextrose 5% in Water 100 ml @ 5 MG/HR 5 mls/hr IV .Q24H ZACHARY Rx#:[id number] Other: # Voids 1 02/17/25 11:27 02/18/25 06:52
[2025-02-18 12:11] VITALS: BP 117/76; PULSE 68
[2025-02-18 12:37] LABS: T4, Free (Free Thyroxine) 0.54 ng/dL (0.78-2.19)
--- NOTE | 2025-02-24 00:46 | P.DS ---
Providers Date of admission: 02/17/25 13:12 Expected date of discharge: 02/18/25 Attending physician: Lyudmila Ohara Consults: 02/17/25 13:12 Consult Physician Urgent Consulting Provider: Jalil Alvarado Consult Reason/Comments: Nephrostomy tube displaced Do you want consulting provider notified?: Yes 02/17/25 16:37 Consult Physician Routine Consulting Provider: Billy Bruce Consult Reason/Comments: new onset afib rvr Do you want consulting provider notified?: Yes Primary care physician: Stated None Hospital Course: Final diagnosis Nephrostomy tube dislodged, urology recommending transfer for IR services at tertiary center that performs nephrostomy tubes, patient has refused and will be going home with hospice New onset atrial fibrillation with rapid ventricular response, started on metoprolol Acute kidney injury likely vasomotor nephropathy, rule out obstructive etiology. Metastatic prostate cancer with history of chemo and radiation while he was in [place]. Currently under hospice care Hide with myalgia Chronic pain Anxiety Prior history of smoking/vaping GI prophylaxis No code Discharge disposition Patient is being discharged in a stable condition with guarded prognosis to home with hospice. Patient refusing further treatment including replace nephrostomy tube with likely comfort measures. Total time taken is greater than 35 minutes. Hospital course This is a 54-year-old male who was recently admitted with nephrostomy tube dislodgment and was evaluated recommending transfer for tertiary treatment with a facility that accommodates nephrostomy tube via IR. This was discussed with patient and patient does not want to transfer and did not want to seek further treatment and would like to return home on hospice patient will likely be com fort measures. Patient has been following with [facility] and will continue to do so. Overall prognosis is extremely poor and guarded. Currently no reports of chest pain, shortness of breath, or palpitations. Patient is afebrile. No reports of nausea or vomiting and patient is tolerating diet. Patient not eating much. Patient will be going home with [facility] today. Physical exam: Gen: This is a 54-year-old male who is awake, alert and oriented x 3, thin built, ill-appearing, appearing elderly HEENT: Head is atraumatic, normocephalic. Pupils equal, round. Sclerae is anicteric. NECK: Supple. No JVD. No lymphadenopathy. No thyromegaly. LUNGS: Diminished breath sounds bilaterally otherwise clear to auscultation. No wheezes or rhonchi. No intercostal retractions. HEART: S1, S2 are muffled, irregular ABDOMEN: Soft. Distended, bloated bowel sounds are present. No masses. No tenderness. EXTREMITIES: No pedal edema. No calf tenderness. NEUROLOGICAL: Patient is awake, alert and oriented x3. Cranial nerves 2 through 12 are grossly intact. Diffusely weak Please refer to medication reconciliation sheet for a list of medications. The impression and plan of care has been dictated by Erin Dockery, Nurse Practitioner as directed. Dr. Mayda MD I have performed a history and examination and MDM of this patient, discussed the same with the dictator, and agree with the dictator's assessment and plan as written ,documented as a scribe. Based on total visit time, I have performed more than 50% of the visit. Patient Condition at Discharge: Poor Plan - Discharge Summary New Discharge Prescriptions: New Metoprolol Tartrate [Lopressor] 25 mg PO BID #60 tab Continue Potassium Chloride ER [K-Dur 10] 10 meq PO DAILY Ibuprofen [Motrin] 400 mg PO Q8HR guaiFENesin-DM 600/30MG [Mucinex Dm] 1 tab PO Q12HR traZODone HCL [Desyrel] 50 mg PO HS Sodium Bicarbonate Tab 1,300 mg PO QID Gabapentin [Neurontin] 300 mg PO Q12H Morphine Sulfate ER [Ms Contin] 100 mg PO Q12H MORPHINE ORAL KARINA CONC 20mg/mL [Roxanol Oral Soln Conc 20MG/ML] 10 mg PO Q4HR PRN PRN Reason: Pain Furosemide [Lasix] 40 mg PO DAILY dexAMETHasone [Decadron] 4 mg PO Q12H LORazepam [Ativan] 0.5 mg PO Q4H PRN PRN Reason: Anxiety Acetaminophen [Tylenol] 650 mg PO Q6H PRN PRN Reason: Fever And/ Or Pain Discharge Medication List Gabapentin [Neurontin] 300 mg PO Q12H 02/04/25 [History] Sodium Bicarbonate Tab 1,300 mg PO QID 02/04/25 [History] traZODone HCL [Desyrel] 50 mg PO HS 02/04/25 [History] Acetaminophen [Tylenol] 650 mg PO Q6H PRN 02/17/25 [History] Furosemide [Lasix] 40 mg PO DAILY 02/17/25 [History] Ibuprofen [Motrin] 400 mg PO Q8HR 02/17/25 [History] LORazepam [Ativan] 0.5 mg PO Q4H PRN 02/17/25 [History] MORPHINE ORAL KARINA CONC 20mg/mL [Roxanol Oral Soln Conc 20MG/ML] 10 mg PO Q4HR PRN 02/17/25 [History] Morphine Sulfate ER [Ms Contin] 100 mg PO Q12H 02/17/25 [History] Potassium Chloride ER [K-Dur 10] 10 meq PO DAILY 02/17/25 [History] dexAMETHasone [Decadron] 4 mg PO Q12H 02/17/25 [History] guaiFENesin-DM 600/30MG [Mucinex Dm] 1 tab PO Q12HR 02/17/25 [History] Metoprolol Tartrate [Lopressor] 25 mg PO BID #60 tab 02/18/25 [Rx] Follow up Appointment(s)/Referral(s): Hospice,Nat [NON-STAFF] - 1 Week None,Stated [Primary Care Provider] - 1-2 days Activity/Diet/Wound Care/Special Instructions: Patient is returning home with hospice and follows with [facility] hospice services Refusing transfer and will likely be comfort measures Discharge Disposition: HOME WITH HOSPICE
== END 2025-02-18 12:35 | disposition still patient (30) | DRG 698 ==
LOC: EC 10:39 → 3SCARD 13:12
PROVIDERS: ADMIT Internal Medicine; ATTEND Internal Medicine
DX: T83.022A Displacement of nephrostomy catheter, initial encounter (principal); N17.0 Acute kidney failure with tubular necrosis; Z51.5 Encounter for palliative care; I48.91 Unspecified atrial fibrillation; F41.9 Anxiety disorder, unspecified; G89.29 Other chronic pain; Z87.891 Personal history of nicotine dependence; Z85.46 Personal history of malignant neoplasm of prostate; Z86.14 Personal history of Methicillin resistant Staphylococcus aureus infection; Z79.899 Other long term (current) drug therapy; Z79.891 Long term (current) use of opiate analgesic; Z79.1 Long term (current) use of non-steroidal anti-inflammatories (NSAID); Z92.21 Personal history of antineoplastic chemotherapy; Z92.3 Personal history of irradiation; Y83.8 Other surgical procedures as the cause of abnormal reaction of the patient, or of later complication, without mention of misadventure at the time of the procedure
CPT/HCPCS: 36415; 76770; 80048; 80053; 83735; 84439; 84443; 85025; 93005; 96365; 96366; 96375; 96376; 99291